=== PATIENT | female | born 1935 | race Caucasian/White ===

== ENCOUNTER → 2016-12-31 | Outpatient (CLI) | payer OTHER ==
[~2016-12-31] MED LIST: ASCO1CHW PO; ASPI81TA28 PO; CALC-338 PO; CHOL100027 PO; GLUCTAB7 PO; LEVO88TA PO; LISI-794 PO; METF-384 PO; MULTTAB58 PO; NITR0.4S UT; PRLSR20 PO
[2016-12-31 12:45] LABS: HEMATOCRIT 41.6 % (37-47); MEAN CELL VOLUME 88.1 fL (80-100); MEAN CORPUSCULAR HEMOGLOBIN 29.7 pg (25-34); MEAN CORPUSCULAR HGB CONC 33.7 g/dl (32-36); MEAN PLATELET VOLUME 9.5 fL (7.4-10.4); PLATELET COUNT 332 K/uL (130-400); RED BLOOD COUNT 4.72 M/uL (4.2-5.4); WHITE BLOOD COUNT 5.73 K/uL (4.8-10.8)
[2016-12-31 13:03] LABS: ALB/GLOB RATIO 1.1 (0.9-2); ALKALINE PHOSPHATASE 64 U/L (45-117); ALT/SGPT 25 U/L (12-78); AST/SGOT 18 U/L (15-37); BLOOD UREA NITROGEN 13 mg/dl (7-18); BUN/CREATININE RATIO 15.6 (10-20); CALCIUM 8.9 mg/dl (8.5-10.1); CARBON DIOXIDE 25 mmol/L (21-32); CHLORIDE 105 mmol/L (98-107); CHOLESTEROL 164 mg/dl (0-200); CHOLESTEROL/HDL RATIO 2.2; CREATININE 0.81 mg/dl (0.60-1.20); GLUCOSE 125 mg/dl (70-99); HDL CHOLESTEROL 75 mg/dl; LDL CHOLESTEROL CALCULATED 62 mg/dl; POTASSIUM 4.7 mmol/L (3.5-5.1); SODIUM 138 mmol/L (136-145); TRIGLYCERIDES 136 mg/dl (0-150); VERY LOW DENSITY LIPOPROT CALC 27 mg/dl
[2016-12-31 13:37] LABS: ESTIMATED AVERAGE GLUCOSE 143 mg/dl; HA1C FLAG Normal (Normal)
== END | disposition home or self-care (01) ==
LOC: C.LABPBG 09:44
PROVIDERS: ATTEND Internal Medicine Geriatric Medicine
DX: E03.9 Hypothyroidism, unspecified (principal); I10 Essential (primary) hypertension; E78.5 Hyperlipidemia, unspecified; R19.7 Diarrhea, unspecified; E11.9 Type 2 diabetes mellitus without complications

== ENCOUNTER → 2017-02-19 | Outpatient (CLI) | payer OTHER ==
--- NOTE | 2017-02-19 12:01 | DIAGNOSTIC IMAGING REPORT ---
CHEST 2 VIEWS ROUTINE CLINICAL HISTORY: Fever. Cough. COMPARISON STUDY: Chest radiograph May 06, 2016. FINDINGS: There are median sternotomy wires and mediastinal surgical clips. There is no pneumothorax or pleural effusion. Mild right middle lobe airspace opacity is present. There may be a trace right pleural effusion. There is no evidence of pulmonary edema. Incidental note is made of a small hiatal hernia. IMPRESSION: Mild right middle lobe airspace opacity which likely reflects pneumonia given the clinical history. Post treatment radiographs to ensure resolution are recommended. Electronically signed by: Nolberto Bethea M.D. 02/19/2017 12:00 PM Dictated Date/Time: 02/19/2017 11:58 AM
== END | disposition home or self-care (01) ==
LOC: C.RADBC 11:42
PROVIDERS: ATTEND Internal Medicine
DX: R50.9 Fever, unspecified (principal); R05 Cough

== ENCOUNTER → 2017-03-15 | Outpatient (CLI) | payer OTHER ==
--- NOTE | 2017-03-15 11:59 | DIAGNOSTIC IMAGING REPORT ---
TWO VIEW CHEST CLINICAL HISTORY: Follow-up pneumonia. FINDINGS: PA and lateral chest radiographs are compared to study dated 02/19/2017. The patient is status post midline sternotomy. The heart is top normal for projection and there is atherosclerotic calcification of the thoracic aorta. The pulmonary vasculature is noncongested. A hiatal hernia is observed. Chronic interstitial thickening is unchanged. There are persistent but modestly improved subpleural opacities in the right lower lung as compared to 02/19/2017. The left lung appears clear. No pleural effusion or pneumothorax is seen. The skeletal structures are osteopenic. Mild degenerative change is noted throughout the thoracic spine. IMPRESSION: 1. There are persistent but modestly improved subpleural opacities identified in the right lower lung. Some of this may represent fluid along the major fissure. Repeat examination in 2-3 weeks time is recommended to document complete resolution. 2. The lungs are otherwise clear. 3. Hiatal hernia. Electronically signed by: Orestes So M.D. 03/15/2017 11:56 AM Dictated Date/Time: 03/15/2017 11:51 AM
== END | disposition home or self-care (01) ==
LOC: C.RADBC 11:31
PROVIDERS: ATTEND Internal Medicine Geriatric Medicine
DX: Z87.01 Personal history of pneumonia (recurrent) (principal); K44.9 Diaphragmatic hernia without obstruction or gangrene

== ENCOUNTER → 2017-04-26 | Outpatient (CLI) | payer OTHER ==
[2017-04-26 13:48] LABS: BLOOD UREA NITROGEN 10 mg/dl (7-18); BUN/CREATININE RATIO 14.6 (10-20); CARBON DIOXIDE 25 mmol/L (21-32); CHLORIDE 105 mmol/L (98-107); CREATININE 0.68 mg/dl (0.60-1.20); GLUCOSE 101 mg/dl (70-99); POTASSIUM 4.4 mmol/L (3.5-5.1); SODIUM 139 mmol/L (136-145)
[2017-04-26 13:51] LABS: CALCIUM 9.1 mg/dl (8.5-10.1)
[2017-04-26 14:03] LABS: URINE TOTAL PROTEIN < 5.0 mg/dl (0-11.9)
[2017-04-26 14:40] LABS: ESTIMATED AVERAGE GLUCOSE 137 mg/dl; HA1C FLAG Normal (Normal)
== END | disposition home or self-care (01) ==
LOC: C.LABPBG 10:35
PROVIDERS: ATTEND Internal Medicine Geriatric Medicine
DX: I10 Essential (primary) hypertension (principal); E03.9 Hypothyroidism, unspecified; E11.9 Type 2 diabetes mellitus without complications; E78.5 Hyperlipidemia, unspecified

== ENCOUNTER → 2017-05-31 | Outpatient (CLI) | payer OTHER ==
--- NOTE | 2017-05-31 13:35 | DIAGNOSTIC IMAGING REPORT ---
CHEST 2 VIEWS ROUTINE CLINICAL HISTORY: J45.909 Reactive airway disease history COMPARISON STUDY: 03/15/2017 FINDINGS: Lungs currently are clear. Densities previously described primarily at the right base have resolved. There is a very small fixed lateral hernia. Patient status post median sternotomy. IMPRESSION: No acute process. Lungs are now clear. Electronically signed by: Aly Bullard M.D. 05/31/2017 1:33 PM Dictated Date/Time: 05/31/2017 1:33 PM
== END | disposition home or self-care (01) ==
LOC: C.RADBC 12:55
PROVIDERS: ATTEND Internal Medicine Geriatric Medicine
DX: J45.909 Unspecified asthma, uncomplicated (principal)

== ENCOUNTER → 2017-06-17 | Outpatient (CLI) | payer OTHER | END | disposition home or self-care (01) | LOC: C.PAPS 11:14 | PROVIDERS: ATTEND Obstetrics & Gynecology | DX: Z12.4 Encounter for screening for malignant neoplasm of cervix (principal); Z11.51 Encounter for screening for human papillomavirus (HPV) ==

== ENCOUNTER → 2017-08-30 | Outpatient (CLI) | payer OTHER ==
[2017-08-30 12:26] LABS: URINE APPEARANCE CLEAR (CLEAR); URINE BILIRUBIN NEG (NEG); URINE COLOR YELLOW; URINE EPITHELIAL CELL AUTO 0-5 /lpf (0-5); URINE NITRITE NEG (NEG); URINE SPECIFIC GRAVITY 1.016 (1.000-1.030); UROBILINOGEN NEG (NEG); ZZUR CULT IF INDIC CLEAN CATCH NO
[2017-08-30 12:30] LABS: MANUAL MICROSCOPIC REQUIRED? NO; REVIEW REQ? NO
== END | disposition home or self-care (01) ==
LOC: C.LABPBG 09:51
PROVIDERS: ATTEND Internal Medicine Geriatric Medicine
DX: R32 Unspecified urinary incontinence (principal)

== ENCOUNTER → 2017-12-23 | Outpatient (CLI) | payer OTHER | END | disposition home or self-care (01) | LOC: C.LABSPEC 10:06 | PROVIDERS: ATTEND Family Medicine | DX: R05 Cough (principal) ==

== ENCOUNTER → 2018-01-30 | Outpatient (CLI) | payer OTHER ==
[2018-01-30 12:05] LABS: BASO % 0.3 %; BASO ABS # 0.02 K/uL (0-0.2); EOS % 1.2 %; EOS ABS # 0.09 K/uL (0-0.5); HEMATOCRIT 38.6 % (37-47); IG# 0.01 K/uL (0.00-0.02); LYMPH % 27.9 %; LYMPH ABS # 2.02 K/uL (1.2-3.4); MEAN CELL VOLUME 88.9 fL (80-100); MEAN CORPUSCULAR HGB CONC 33.7 g/dl (32-36); MONO % 5.9 %; MONO ABS # 0.43 K/uL (0.11-0.59); NEUT % 64.6 %; NEUT ABS # 4.67 K/uL (1.4-6.5); PLATELET COUNT 369 K/uL (130-400); RED CELL DISTRIBUTION WIDTH CV 14.6 % (11.5-14.5); RED CELL DISTRIBUTION WIDTH SD 47.6 fL (36.4-46.3); WHITE BLOOD COUNT 7.24 K/uL (4.8-10.8)
[2018-01-30 12:32] LABS: ALBUMIN 3.7 gm/dl (3.4-5.0); ALKALINE PHOSPHATASE 67 U/L (45-117); ALT/SGPT 19 U/L (12-78); AST/SGOT 17 U/L (15-37); BLOOD UREA NITROGEN 17 mg/dl (7-18); CALCIUM 9.4 mg/dl (8.5-10.1); CARBON DIOXIDE 27 mmol/L (21-32); CHOLESTEROL 191 mg/dl (0-200); CREATININE 0.79 mg/dl (0.60-1.20); GLUCOSE 112 mg/dl (70-99); POTASSIUM 4.4 mmol/L (3.5-5.1); SODIUM 135 mmol/L (136-145)
[2018-01-30 12:41] LABS: LDL CHOLESTEROL CALCULATED 99 mg/dl
[2018-01-30 12:42] LABS: HEMOGLOBIN A1C 6.3 % (4.5-5.6)
== END | disposition home or self-care (01) ==
LOC: C.LABPBG 10:31
PROVIDERS: ATTEND Internal Medicine Geriatric Medicine
DX: I10 Essential (primary) hypertension (principal); E03.9 Hypothyroidism, unspecified; E78.5 Hyperlipidemia, unspecified; E55.9 Vitamin D deficiency, unspecified; E11.9 Type 2 diabetes mellitus without complications; G47.33 Obstructive sleep apnea (adult) (pediatric)

== ENCOUNTER → 2018-03-27 | Outpatient (CLI) | payer OTHER ==
--- NOTE | 2018-03-27 14:34 | MAMMOGRAPHY REPORT ---
BILATERAL DIGITAL SCREENING MAMMOGRAM TOMOSYNTHESIS WITH CAD: 03/27/2018 CLINICAL HISTORY: Routine screening. Patient has no complaints. TECHNIQUE: Breast tomosynthesis in addition to standard 2D mammography was performed. Current study was also evaluated with a Computer Aided Detection (CAD) system. COMPARISON: Comparison is made to exams dated: 03/24/2017 mammogram, 03/22/2016 mammogram, 03/19/2015 natali mogram, 03/18/2014 mammogram, 03/12/2013 mammogram, and 03/09/2012 mammogram - [facility] ter. BREAST COMPOSITION: The tissue of both breasts is heterogeneously dense, which may obscure small mas ses. FINDINGS: The parenchymal pattern is unchanged. No developing mass, architectural distortion or clus ter of suspicious microcalcifications is seen in either breast. IMPRESSION: ACR BI-RADS CATEGORY 2: BENIGN There is no mammographic evidence of malignancy. A 1 year screening mammogram is recommended. The pa tient will receive written notification of the results. Approximately 10% of breast cancers are not detected with mammography. A negative mammographic report should not delay biopsy if a clinically suggestive mass is present. Bruna Morrison M.D. ay/:03/27/2018 13:49:35 Pulverizer Tender: Blanca VALENZUELA(Nicci)(Hilario), [facility] letter sent: Normal 1/2 BI-RADS Code: ACR BI-RADS Category 2: Benign
== END | disposition home or self-care (01) ==
LOC: C.MAMM 10:01
PROVIDERS: ATTEND Obstetrics & Gynecology
DX: Z12.31 Encounter for screening mammogram for malignant neoplasm of breast (principal)

== ENCOUNTER → 2018-06-20 | Outpatient (CLI) | payer OTHER ==
[2018-06-21 07:03] LABS: HEMOGLOBIN A1C 6.3 % (4.5-5.6)
== END | disposition home or self-care (01) ==
LOC: C.LABPBG 14:57
PROVIDERS: ATTEND Physician Assistant
DX: E11.9 Type 2 diabetes mellitus without complications (principal); E03.9 Hypothyroidism, unspecified

== ENCOUNTER 2019-06-17 06:38 | Inpatient (IN) ==
[2019-06-17] MEDS ORDERED: METOCLOPRAMIDE HCL INJ 5 MG/ML 2 ML VIAL ONE (06:41)
[2019-06-17] MEDS ORDERED: HYDROmorphone INJ 0.5 MG/0.5 ML SYR IV PRN (06:48)
[2019-06-17] MEDS ORDERED: METOCLOPRAMIDE HCL INJ 5 MG/ML 2 ML VIAL IV STA (06:48)
[2019-06-17] MEDS ORDERED: SODIUM CHLORIDE 0.9% 500 ML IV SCH (07:00)
[2019-06-17 07:05] LABS: Basophils # (auto) 0.02 K/uL (0-0.2); Basophils % (auto) 0.2 %; Eosinophils # (auto) 0.13 K/uL (0-0.5); Eosinophils % (auto) 1.2 %; Hematocrit (blood only) 41.7 % (37-47); Hemoglobin 14.3 g/dL (12.0-16.0); Immature Granulocytes # (auto) 0.02 K/uL (0.00-0.02); Immature Granulocytes % (auto) 0.2 %; Lymphocytes # (auto) 1.93 K/uL (1.2-3.4); Lymphocytes % (auto) 18.2 %; Mean Corpuscular Hgb Conc 34.3 g/dL (32-36); Mean Corpuscular Volume 89.1 fL (80-100); Mean Platelet Volume 9.1 fL (7.4-10.4); Monocytes # (auto) 0.63 K/uL (0.11-0.59); Monocytes % (auto) 5.9 %; Neutrophils # (auto) 7.86 K/uL (1.4-6.5); Neutrophils % (auto) 74.3 %; Platelet Count 347 K/uL (130-400); RDW Coefficient of Variation 14.3 % (11.5-14.5); RDW Standard Deviation 46.2 fL (36.4-46.3); Red Blood Count 4.68 M/uL (4.2-5.4); White Blood Count 10.59 K/uL (4.8-10.8)
[2019-06-17 07:18] LABS: iSTAT Creatinine 0.7 mg/dl (0.6-1.3); iSTAT Hemoglobin 14.3 g/dl (12.0-16.0); iSTAT Ionized Calcium 1.2 mmol/l (1.12-1.32); iSTAT Potassium 4.3 mEq/L (3.3-5.0)
[2019-06-17 07:27] LABS: Alanine Aminotransferase 24 U/L (12-78); Albumin Level 3.8 gm/dl (3.4-5.0); Aspartate Aminotransferase 19 U/L (15-37); BUN Creatinine Ratio 16.4 (10-20); Blood Urea Nitrogen 14 mg/dl (7-18); Calcium 9.3 mg/dl (8.5-10.1); Carbon Dioxide 25 mmol/L (21-32); Chloride 103 mmol/L (98-107); Creatinine Clr Calc Pharmacy 45.5 ml/min; Est GFR (African American) 72.9; Est GFR (Non-African American) 62.9; Glucose 157 mg/dl (70-99); Potassium 4.1 mmol/L (3.5-5.1); Sodium 136 mmol/L (136-145)
--- NOTE | 2019-06-17 07:30 | XRay Report ---
XR chest 1V portable HISTORY: Atypical Chest Pain COMPARISON: Chest 10/22/2013. FINDINGS: There are poststernotomy changes. Retrocardiac density consistent with a small hiatus herni a. The heart is normal in size. The lungs are clear. No pleural effusions. No pneumothorax. IMPRESSION: No acute process. Electronically signed by: Pankaj Benoit M.D. 06/17/2019 7:29 AM
[2019-06-17 07:32] LABS: Albumin Globulin Ratio 1.1 (0.9-2); Alkaline Phosphatase 81 U/L (45-117); Bilirubin,Total 0.5 mg/dl (0.2-1); Creatine Kinase 166 U/L (26-192); Creatine Kinase MB 5.3 ng/ml (0.5-3.6); Globulin 3.5 gm/dl (2.5-4.0); Total Protein 7.3 gm/dl (6.4-8.2); Troponin I < 0.015 ng/ml (0-0.045)
[2019-06-17] MEDS ORDERED: IOVERSOL 100ml IV PRN (07:45)
--- NOTE | 2019-06-17 08:05 | CT Scan Report ---
ABDOMEN AND PELVIS CT WITH IV CONTRAST CT DOSE: 338.16 mGy.cm HISTORY: Pt c/o RUQ abd pain TECHNIQUE: Multiaxial CT images of the abdomen and pelvis were performed following the use of intrave nous contrast. A dose lowering technique was utilized adhering to the principles of ALARA. COMPARISON STUDY: Abdomen and pelvis CT 06/05/2019. FINDINGS: The lung bases are essentially clear. No pneumoperitoneum. No pneumatosis. No suspicious ly tic are blastic osseous lesions. There are poststernotomy changes. Moderate hiatus hernia, unchanged. Prior cholecystectomy. Normal caliber common bile duct status post cholecystectomy. Minimal intrahep atic bile duct dilatation. The spleen, adrenal glands, and pancreas are unremarkable. There is a stab le 2 cm cyst within the right kidney. Small focal area of scarring within the lower pole the left kid jignesh. No hydronephrosis. No retroperitoneal lymphadenopathy. Dextroscoliosis of the thoracolumbar spin e. No retroperitoneal lymphadenopathy. Mild bladder wall thickening, unchanged. This may be due to un derdistention. Trace pelvic free fluid. Colonic diverticulosis. No evidence for diverticulitis. There are postoperative changes again identified within the right colon. This suggests a right hemicolecto my with ileocolic anastomosis. The distal ileal loops are decompressed. Within the right lower quadra nt near the anastomosis, there is a 15 cm loop of bowel best seen on image 275 which demonstrates bot h proximal and distal transition points (images 265 and 272, respectively). This loop of bowel is mil dly dilated and fluid-filled. In addition, the mid to distal loops of small bowel within the midabdom en are also mildly distended and fluid-filled. Therefore, this is consistent with a small bowel obstr uction. Specifically, the short segment of distended bowel within the right lower quadrant demonstrat ing both proximal and distal transition points is consistent with a closed loop obstruction. IMPRESSION: 1. Above findings are consistent with a small bowel closed loop obstruction within the right lower qu adrant as described above. This is adjacent to the previous ileocolonic anastomosis and could represe nt an internal hernia or adhesions. Urgent surgical consultation recommended. 2. Additional stable findings as described above. 3. Findings were discussed with Dr. Reina at 8:01 AM on 06/17/2019. Electronically signed by: Pankaj Benoit M.D. 06/17/2019 8:03 AM
[2019-06-17 08:24] LABS: Appearance Urine Clear (Clear); Bilirubin Urine Negative (Negative); Blood Urine Negative (Negative); Color Urine Yellow; Glucose Urine UA Negative (Negative); Ketones Urine Negative (Negative); Leukocyte Esterase Urine Negative (Negative); Nitrite Urine Negative (Negative); Protein Urine Negative (Negative); Urobilinogen Urine Negative (Negative); pH Urine 6.5 (4.5-7.5)
--- NOTE | 2019-06-17 09:48 | Anesthesiology Consultation ---
Date of Service June 17, 2019 Assessment & Plan (1) Encounter for pre-operative examination: Chart Review Chart Review: Acceptable Risk for Surgery Consults Requested none ASA [id number] Proposed Anesthesia Anesthesia Type: General Anesthesia Line Insertion: Arterial line Risk / Benefits Reviewed With: PT / POA / Parent / Guardian, Accepts Plan and Informed Consent Obtained History Surgery Operation Date: 06/17/19 10:30 Proposed Procedures p Exploratory Laparotomy - Luba Salvador MD s Bowel Resection - Luba Salvador MD Height/Weight Height: 5 ft 1 in Weight: 71.1 kg Allergies Allergy/AdvReac Type Severity Reaction Status Date / Time ciprofloxacin [From Cipro] Allergy Mild nauseated Verified 06/17/19 06:53 furosemide [From Lasix] Allergy Unknown Unknown Verified 06/17/19 06:53 hydrochlorothiazide Allergy Unknown Unknown Verified 06/17/19 06:53 nitrofurantoin Allergy Unknown Unknown Verified 06/17/19 06:53 [From Macrobid] codeine AdvReac Severe CHEST PAIN Verified 06/17/19 06:53 felodipine [From Plendil] AdvReac Mild NON Verified 06/17/19 06:53 TOLERANT oxycodone [From Percocet] AdvReac Mild NON Verified 06/17/19 06:53 TOLERANT pravastatin [From Pravachol] AdvReac Mild MYALGIAS Verified 06/17/19 06:53 simvastatin [From Zocor] AdvReac Mild MYALGIAS Verified 06/17/19 06:53 Fsncwis-Xsy-Zli Reductase AdvReac Mild Muscle Verified 06/17/19 06:53 Inhibitor aches and cramping. theophylline [From Silas-Dur] AdvReac Mild NON Verified 06/17/19 06:53 TOLERANT Medications Home Medications Medication Instructions Recorded Confirmed Last Taken blood sugar diagnostic strips #10 ea 04/27/19 06/17/19 Unknown lancets 26 gauge #50 ea 04/27/19 06/17/19 Unknown lpxehpbkkwnw-Kg-ufgx-minerals 1 tab PO QAM 04/27/19 06/17/19 Unknown aspirin 81 mg tablet,delayed 81 mg PO QAM 05/30/19 06/17/19 Unknown release biotin 10 mg tablet 10 mg PO QAM tab 05/30/19 06/17/19 Unknown cholecalciferol (vitamin D3) 5,000 5,000 units PO QAM 05/30/19 06/17/19 Unknown unit capsule lisinopril 20 mg tablet 20 mg PO QAM tab 05/30/19 06/17/19 Unknown metformin 500 mg tablet 500 mg PO QAM tab 05/30/19 06/17/19 Unknown nitroglycerin 0.4 mg sublingual 0.4 mg SL UD PRN 05/30/19 06/17/19 Unknown tablet glucosamine sulfate 500 mg capsule 500 mg PO BID cap 05/31/19 06/17/19 Unknown coQ10 (ubiquinol) 200 mg PO QAM 06/07/19 06/17/19 Unknown levothyroxine [Synthroid] 75 mcg PO QAM 06/07/19 06/17/19 Unknown omeprazole 40 mg PO QAM 06/07/19 06/17/19 Unknown Active Medications Generic Name Dose Route Start Last Admin Trade Name Freq PRN Reason Stop Dose Admin Hydromorphone HCl 0.5 mg 06/17/19 06:48 06/17/19 08:49 Dilaudid IV 07/01/19 06:47 0.5 mg Q15M PRN Administration Pain Ioversol 93 ml 06/17/19 07:45 06/17/19 07:45 Optiray 320 100ml IV 06/21/19 07:44 93 ml ONCE PRN Administration Interaction Checking NPO Date Last Intake of Fluids: 06/16/19 Time Last Intake of Fluids: 21:00 Date Last Intake of Solids: 06/16/19 Time Last Intake of Solids: 21:00 Past Medical History Medical History SBO (small bowel obstruction) Spinal stenosis Arteriosclerotic coronary artery disease Carotid artery plaque Anxiety and depression Dyslipidemia GERD (gastroesophageal reflux disease) History of diverticulitis of colon Insomnia Moderate obstructive sleep apnea refused to wear CPAP Osteopenia Seasonal allergies Type 2 diabetes mellitus Urinary incontinence Vitamin D deficiency Lumbar facet joint syndrome Scoliosis Hypothyroidism HTN (hypertension) History of anesthesia reaction after last colonoscopy 2015 @ [facility] pt became dizzy with chest tightness and HTN in recovery area--Dr. Pankaj Montano sent pt to the ER for further evaluation (see anesthesia note from procedure), pt states no further issues and was discharged home. Intestinal mass hx of benign small mass on right side of colon---reason for partial colectomy Exercise / Class Metabolic Activity II 4-5 Yardwork/Stairs/Walk up hill Past Family History Family History Sister Family history of diabetes mellitus Mother Family history of diabetes mellitus Stroke Father Family history of diabetes mellitus Parkinsons disease Brother Family history of diabetes mellitus Grandfather (Paternal) Family history of stomach cancer Other No family history of adverse response to anesthesia Past Surgical History Surgical History History of partial colectomy SEP 2013 Hx of cholecystectomy (Chronic) H/O hemorrhoidectomy History of appendectomy History of cataract surgery BILATERAL History of colonoscopy History of coronary artery bypass graft 2000[place]LE [place] [place] of esophagogastroduodenoscopy History of tooth extraction partial upper and lower dentures History of tubal ligation Hx of varicose vein ligation and stripping Past Anesthesia History No Hx of Anesthesia Complications and No Family Hx of Anesthesia Complications History of PONV No Hx of PONV and No Hx of Motion Sickness Social History Smoking Status: Never smoker Hx Alcohol Use: Yes Alcohol type: wine alcohol intake frequency: holidays/special occasions only Hx Substance Use: No substance use type: does not use Physical Exam Vital Signs Last Vital Signs Temp 97.5 F L 06/17/19 06:45 Pulse 68 06/17/19 10:09 Resp 20 06/17/19 10:09 BP 207/94 H 06/17/19 10:09 Pulse Ox 97 06/17/19 10:09 ENMT Mouth: no dentition abnormality Thyromental Distance: > or= 3.5 Finger Breadths Mallampati Class: II Neck normal visual inspection Respiratory normal respiratory effort Auscultation: lungs clear to auscultation bilaterally Cardiovascular Rate/Rhythm: regular rate and regular rhythm Vessels: no carotid bruit Testing Laboratory Results 06/17/19 06:01 06/17/19 06:01 Urine Color Yellow 06/17/19 08:09 Urine Appearance Clear (Clear) 06/17/19 08:09 Urine pH 6.5 (4.5-7.5) 06/17/19 08:09 Ur Specific [place] 1.030 (1.000-1.030) 06/17/19 08:09 Urine Protein Negative (Negative) 06/17/19 08:09 Urine Glucose (UA) Negative (Negative) 06/17/19 08:09 Urine Ketones Negative (Negative) 06/17/19 08:09 Urine Nitrite Negative (Negative) 06/17/19 08:09 Ur Leukocyte Esterase Negative (Negative) 06/17/19 08:09 06/17/19 07:06 POC Glucose (other) 167 H Electrocardiogram Date: 06/17/19 Sinus bradycardia, rate 56 bpm Otherwise normal ECG When compared with ECG of 06-MAY-2016 11:53, Vent. rate has decreased BY 29 BPM Chest X-Ray Date: 06/17/19 Findings: + NAD
[2019-06-17] MEDS ORDERED: ENALAPRILAT 0.625 MG in SYRINGE 9.5 ML IV ONE (09:55)
[2019-06-17] MEDS ORDERED: ENALAPRILAT 0.625 MG in DEXTROSE 5% 25 ML IV SCH (10:00)
[2019-06-17] MEDS ORDERED: fentaNYL citrate 100 MCG/2 ML VIAL IV PRN (10:00)
[2019-06-17] MEDS ORDERED: BACITRACIN OINT 15 GM TUBE ONE (10:00)
[2019-06-17] MEDS ORDERED: ePHEDrine sulfate 50 MG/ML AMP IV PRN (10:00)
[2019-06-17] MEDS ORDERED: ATROPINE SULFATE 0.1 MG/ML 10ML SYR IV PRN (10:00)
[2019-06-17] MEDS ORDERED: ONDANSETRON INJ 2 MG/ML 2 ML VIAL IV PRN (10:00)
[2019-06-17] MEDS ORDERED: BUPIVACAINE 0.5 % 5 MG/1 ML MPF 30ML VIAL ONE (10:00)
[2019-06-17] MEDS ORDERED: LIDOCAINE HCL 1% 20 ML VIAL ONE (10:00)
--- NOTE | 2019-06-17 10:10 | Surgery Consultation ---
Date of Consultation June 17, 2019 Assessment & Plan (1) SBO (small bowel obstruction): pt is a 84 year-old who presents to ER with 9 hours acute abdominal pain, CT Scan dx possible loop SBO, or internal hernia, IMP: SBO possible loop or internal hernia, Plan, I recommend to do emergent exploratory laparotomy, possible bowel resection or stoma, D/W benefits, risks and alternatives of the surgery with pt and her son and daughter, the risks - infection, bleeding, injury Bowel, LA, DV T, stroke, anastomotic leak, , they understood, they agree with the surgery, I answered all questions, I also gave pt other option, if pt wants to transfer to higher level care, pt wants to do surgery at this hospital. Hospitalist consult for pre-op, and post - management, D/W ER attending. 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 pt had CT scan today at ER dx loop or internal hernia with SBO. Allergies Allergy/AdvReac Type Severity Reaction Status Date / Time ciprofloxacin [From Cipro] Allergy Mild nauseated Verified 06/17/19 06:53 furosemide [From Lasix] Allergy Unknown Unknown Verified 06/17/19 06:53 hydrochlorothiazide Allergy Unknown Unknown Verified 06/17/19 06:53 nitrofurantoin Allergy Unknown Unknown Verified 06/17/19 06:53 [From Macrobid] codeine AdvReac Severe CHEST PAIN Verified 06/17/19 06:53 felodipine [From Plendil] AdvReac Mild NON Verified 06/17/19 06:53 TOLERANT oxycodone [From Percocet] AdvReac Mild NON Verified 06/17/19 06:53 TOLERANT pravastatin [From Pravachol] AdvReac Mild MYALGIAS Verified 06/17/19 06:53 simvastatin [From Zocor] AdvReac Mild MYALGIAS Verified 06/17/19 06:53 Cabxbza-Ltl-Xwi Reductase AdvReac Mild Muscle Verified 06/17/19 06:53 Inhibitor aches and cramping. theophylline [From Silas-Dur] AdvReac Mild NON Verified 06/17/19 06:53 TOLERANT Home Medications Home Medications Medication Instructions Recorded Confirmed Type blood sugar diagnostic strips #10 ea 04/27/19 06/17/19 History lancets 26 gauge #50 ea 04/27/19 06/17/19 History ulxiliypbmzg-Bx-babb-minerals 1 tab PO QAM 04/27/19 06/17/19 History aspirin 81 mg tablet,delayed 81 mg PO QAM 05/30/19 06/17/19 History release biotin 10 mg tablet 10 mg PO QAM tab 05/30/19 06/17/19 History cholecalciferol (vitamin D3) 5,000 5,000 units PO QAM 05/30/19 06/17/19 History unit capsule lisinopril 20 mg tablet 20 mg PO QAM tab 05/30/19 06/17/19 History metformin 500 mg tablet 500 mg PO QAM tab 05/30/19 06/17/19 History nitroglycerin 0.4 mg sublingual 0.4 mg SL UD PRN 05/30/19 06/17/19 History tablet glucosamine sulfate 500 mg capsule 500 mg PO BID cap 05/31/19 06/17/19 History coQ10 (ubiquinol) 200 mg PO QAM 06/07/19 06/17/19 History levothyroxine [Synthroid] 75 mcg PO QAM 06/07/19 06/17/19 History omeprazole 40 mg PO QAM 06/07/19 06/17/19 History Patient History Medical History Spinal stenosis Arteriosclerotic coronary artery disease Carotid artery plaque Anxiety and depression Dyslipidemia GERD (gastroesophageal reflux disease) History of diverticulitis of colon Insomnia Moderate obstructive sleep apnea refused to wear CPAP Osteopenia Seasonal allergies Type 2 diabetes mellitus Urinary incontinence Vitamin D deficiency Lumbar facet joint syndrome Scoliosis Hypothyroidism HTN (hypertension) History of anesthesia reaction after last colonoscopy 2015 @ [facility] pt became dizzy with chest tightness and HTN in recovery area--Dr. Pankaj Montano sent pt to the ER for further evaluation (see anesthesia note from procedure), pt states no further issues and was discharged home. Intestinal mass hx of benign small mass on right side of colon---reason for partial colectomy Surgical History History of partial colectomy SEP 2013 Hx of cholecystectomy (Chronic) H/O hemorrhoidectomy History of appendectomy History of cataract surgery BILATERAL History of colonoscopy [place] of coronary artery [place] [place] of esophagogastroduodenoscopy History of tooth extraction partial upper and lower dentures History of tubal ligation Hx of varicose vein ligation and stripping Family History Sister Family history of diabetes mellitus Mother Family history of diabetes mellitus Stroke Father Family history of diabetes mellitus Parkinsons disease Brother Family history of diabetes mellitus Grandfather (Paternal) Family history of stomach cancer Other No family history of adverse response to anesthesia Social History Preferred Language: Urdu Communication Ability: Effective Visual Impairment: Limited Hearing Ability: Normal Beliefs That Will Affect Care: None marital status: Current Living Situation: Spouse current occupational status: retired Feels Safe at Home: Yes Smoking Status: Never smoker Second Hand Exposure: Yes ( smoked) Hx Alcohol Use: Yes Alcohol type: wine Hx Substance Use: No Review of Systems Constitutional: as per Subjective / HPI Eyes: as per Subjective / HPI Ear, Nose, Mouth, Throat: as per Subjective / HPI Respiratory: as per Subjective / HPI Cardiovascular: + chest pain Additional Comments: CAD, HTN, dyslipidemia, CABG x 3 . carotic artery plaque Gastrointestinal: GERD, S/P cholecystectomy, right loectomy Genitourinary: as per Subjective / HPI Musculoskeletal: as per Subjective / HPI Integumentary: as per Subjective / HPI Neurologic: as per Subjective / HPI Psychiatric: as per Subjective / HPI Endocrine: DM, hypothyroidism Hematologic / Lymphatic: as per Subjective / HPI Physical Exam Constitutional: WD/WN, vitals as above well developed and well nourished ENMT: external ear and nose normal, oropharynx normal Neck: trachea midline, no thyromegaly Respiratory: normal respiratory effort, lungs clear to auscultation normal respiratory effort Cardiovascular: RRR, no murmur, no edema Rate/Rhythm: regular rate, regular rhythm and + bradycardic Heart Sounds: normal S1 and normal S2 Gastrointestinal (Abdomen): Inspection/Auscultation: + abdomen distended Percussion/Palpation: + abdomen tender tenderness at lower abdomen, no rebound pain, BS + Musculoskeletal: no cyanosis or clubbing, extremities motor strength 5/5 Neurologic: patellar DTR's 2+ bilat, sensation intact Psychiatric: Orientation: alert and oriented x 3 Lymphatic: no cervical or axillary lymphadenopathy Results & Data Vital Signs (Past 12 Hours) Vital Signs Temp Pulse Pulse Resp BP BP Pulse Ox 06/17/19 09:02 71 18 229/90 H 95 06/17/19 08:04 63 16 167/81 H 06/17/19 07:18 95 06/17/19 06:55 58 L 16 171/75 H 94 06/17/19 06:45 36.4 C L 80 16 206/107 H 98 Laboratory Results Abnormal lab results 06/17/19 06/17/19 06/17/19 Range/Units 06:01 06:01 07:06 Neut # (Auto) 7.86 H (1.4-6.5) K/uL [place] # (Auto) 0.63 H (0.11-0.59) K/uL POC Anion Gap 14.0 L (16-25) mmol/L Glucose 157 H (70-99) mg/dl POC Glucose (other) 167 H (70-99) mg/dl CK-MB (CK-2) 5.3 H (0.5-3.6) ng/ml CK/CKMB % Calc 3.2 H (0-3.0) Diagnostic Findings ABDOMEN AND PELVIS CT WITH IV CONTRAST CT DOSE: 338.16 mGy.cm HISTORY: Pt c/o RUQ abd pain TECHNIQUE: Multiaxial CT images of the abdomen and pelvis were performed following the use of intravenous contrast. A dose lowering technique was utilized adhering to the principles of ALARA. COMPARISON STUDY: Abdomen and pelvis CT 06/05/2019. FINDINGS: The lung bases are essentially clear. No pneumoperitoneum. No pneumatosis. No suspicious lytic are blastic osseous lesions. There are poststernotomy changes. Moderate hiatus hernia, unchanged. Prior cholecystectomy. Normal caliber common bile duct status post cholecystectomy. Minimal intrahepatic bile duct dilatation. The spleen, adrenal glands, and pancreas are unremarkable. There is a stable 2 cm cyst within the right kidney. Small focal area of scarring within the lower pole the left kidney. No hydronephrosis. No retroperitoneal lymphadenopathy. Dextroscoliosis of the thoracolumbar spine. No retroperitoneal lymphadenopathy. Mild bladder wall thickening, unchanged. This may be due to underdistention. Trace pelvic free fluid. Colonic diverticulosis. No evidence for diverticulitis. There are postoperative changes again identified within the right colon. This suggests a right hemicolectomy with ileocolic anastomosis. The distal ileal loops are decompressed. Within the right lower quadrant near the anastomosis, there is a 15 cm loop of bowel best seen on image 275 which demonstrates both proximal and distal transition points (images 265 and 272, respectively). This loop of bowel is mildly dilated and fluid-filled. In addition, the mid to distal loops of small bowel within the midabdomen are also mildly distended and fluid-filled. Therefore, this is consistent with a small bowel obstruction. Specifically, the short segment of distended bowel within the right lower quadrant demonstrating both proximal and distal transition points is consistent with a closed loop obstruction. IMPRESSION: 1. Above findings are consistent with a small bowel closed loop obstruction within the right lower quadrant as described above. This is adjacent to the previous ileocolonic anastomosis and could represent an internal hernia or adhesions. Urgent surgical consultation recommended. 2. Additional stable findings as described above. 3. Findings were discussed with Dr. Reina at 8:01 AM on 06/17/2019.
[2019-06-17] MEDS ORDERED: fentaNYL citrate 100 MCG/2 ML VIAL ONE (10:18)
[2019-06-17] MEDS ORDERED: CEFAZOLIN 2000MG 2,000 MG/15 ML SYR IV ONE ×2 (10:19→10:54)
--- NOTE | 2019-06-17 10:20 | History & Physical Bridge Note ---
Date of Service June 17, 2019 History & Physical Bridge Note I have examined the patient, reviewed the History & Physical and in the interval since the performance of the History & Physical I have noted the following changes of clinical significance: no changes noted
--- NOTE | 2019-06-17 10:48 | Emergency Department Note ---
Entered by Jacquelyn Enrique acting as a scribe for History of Present Illness General Chief complaint: Abdominal Pain Stated complaint: ABDOMINAL PAIN Time Seen by Provider: 06/17/19 06:40 Source: patient Mode of arrival: EMS History of Present Illness Onset (ago): hour(s) 5 Location: abdomen (right upper quadrant) Radiation: non-radiation Severity: severe Pain Consistency: + other (episode) Relieved By: + medication (Zofran, Fentanyl) Associated symptoms: + other (vomiting, nausea, sweating) The patient is a 84 year old female with a history of diverticulitis that is presenting to the Emergency Room with complaints of an episode of severe right upper quadrant abdominal pain that started 5 hours ago at 0130 this morning. The patient reports that she was having some associated nausea. She states that she started vomiting shortly afterwards. She reports that she almost passed out secondary to the pain. She states that she broke out in a sweat as well. She denies any radiation of the pain. She notes that she ate some greasy food last night. She states that she is not currently experiencing pain. She notes that she received Zofran and Fentanyl en route via EMS. She reports that she was diagnosed with diverticulitis 1 month ago. She states that she is scheduled for a colonoscopy in 2 days for evaluation of her symptoms. She notes that she finished her course of antibiotics 2 weeks ago. The patient reports that she is status post cholecystectomy and a triple bypass. Home Medications Home Medications Medication Instructions Recorded Confirmed Type blood sugar diagnostic strips #10 ea 04/27/19 06/17/19 History lancets 26 gauge #50 ea 04/27/19 06/17/19 History [id number]-Gb-zbcl-minerals 1 tab PO QAM 04/27/19 06/17/19 History aspirin 81 mg tablet,delayed 81 mg PO QAM 05/30/19 06/17/19 History release biotin 10 mg tablet 10 mg PO QAM tab 05/30/19 06/17/19 History cholecalciferol (vitamin D3) 5,000 5,000 units PO QAM 05/30/19 06/17/19 History unit capsule lisinopril 20 mg tablet 20 mg PO QAM tab 05/30/19 06/17/19 History metformin 500 mg tablet 500 mg PO QAM tab 05/30/19 06/17/19 History nitroglycerin 0.4 mg sublingual 0.4 mg SL UD PRN 05/30/19 06/17/19 History tablet glucosamine sulfate 500 mg capsule 500 mg PO BID cap 05/31/19 06/17/19 History coQ10 (ubiquinol) 200 mg PO QAM 06/07/19 06/17/19 History levothyroxine [Synthroid] 75 mcg PO QAM 06/07/19 06/17/19 History omeprazole 40 mg PO QAM 06/07/19 06/17/19 History Allergies Allergy/AdvReac Type Severity Reaction Status Date / Time ciprofloxacin [From Cipro] Allergy Mild nauseated Verified 06/17/19 06:53 furosemide [From Lasix] Allergy Unknown Unknown Verified 06/17/19 06:53 hydrochlorothiazide Allergy Unknown Unknown Verified 06/17/19 06:53 nitrofurantoin Allergy Unknown Unknown Verified 06/17/19 06:53 [From Macrobid] codeine AdvReac Severe CHEST PAIN Verified 06/17/19 06:53 felodipine [From Plendil] AdvReac Mild NON Verified 06/17/19 06:53 TOLERANT oxycodone [From Percocet] AdvReac Mild NON Verified 06/17/19 06:53 TOLERANT pravastatin [From Pravachol] AdvReac Mild MYALGIAS Verified 06/17/19 06:53 simvastatin [From Zocor] AdvReac Mild MYALGIAS Verified 06/17/19 06:53 Lvhhsya-Xwo-Tuq Reductase AdvReac Mild Muscle Verified 06/17/19 06:53 Inhibitor aches and cramping. theophylline [From Silas-Dur] AdvReac Mild NON Verified 06/17/19 06:53 TOLERANT Past Med/Surg History Medical History SBO (small bowel obstruction) Spinal stenosis Arteriosclerotic coronary artery disease Carotid artery plaque Anxiety and depression Dyslipidemia GERD (gastroesophageal reflux disease) History of diverticulitis of colon Insomnia Moderate obstructive sleep apnea refused to wear CPAP Osteopenia Seasonal allergies Type 2 diabetes mellitus Urinary incontinence Vitamin D deficiency Lumbar facet joint syndrome Scoliosis Hypothyroidism HTN (hypertension) History of anesthesia reaction after last colonoscopy [address] [facility] pt became dizzy with chest tightness and HTN in recovery area--Dr. Pankaj Montano sent pt to the ER for further evaluation (see anesthesia note from procedure), pt states no further issues and was discharged home. Intestinal mass hx of benign small mass on right side of colon---reason for partial colectomy Surgical History History of partial colectomy SEP 2013 Hx of cholecystectomy (Chronic) H/O hemorrhoidectomy History of appendectomy History of cataract surgery BILATERAL History of colonoscopy History of coronary artery bypass graft 2000-TRIPLE BYPASS @[facility] [place] History of esophagogastroduodenoscopy History of tooth extraction partial upper and lower dentures History of tubal ligation Hx of varicose vein ligation and stripping Family History Sister Family history of diabetes mellitus Mother Family history of diabetes mellitus Stroke Father Family history of diabetes mellitus Parkinsons disease Brother Family history of diabetes mellitus Grandfather (Paternal) Family history of stomach cancer Other No family history of adverse response to anesthesia Social History Preferred Language: Panamanian Communication Ability: Effective Visual Impairment: Limited Hearing Ability: Normal Beliefs That Will Affect Care: None marital status: Current Living Situation: Spouse current occupational status: retired Feels Safe at Home: Yes Smoking Status: Never smoker Second Hand Exposure: Yes ( smoked) Hx Alcohol Use: Yes Alcohol type: wine Hx Substance Use: No Review of Systems See HPI for pertinent positives & negatives. and A total of 10 systems reviewed and were otherwise negative Physical Exam Vital Signs Vital Signs - 24 hr 06/17/19 06:45 06/17/19 06:55 06/17/19 07:18 Temperature 36.4 C L Temperature Source Oral Sepsis Recent Fever Within 48 Hours No Sepsis New/Unexplained Change in Mental Status No Sepsis Action Taken by Nursing No Action Required Pulse Rate 80 Pulse Rate [Right Finger] 58 L Pulse Rhythm Regular Pulse Rhythm [Right Finger] Regular Pulse Strength Normal Pulse Strength [Right Finger] Normal Respiratory Rate 16 16 Respiratory Effort / Characteristics Non-Labored Non-Labored Respiratory Depth Normal Normal Respiratory Pattern Regular Regular Blood Pressure 206/107 H Blood Pressure [Right Arm] 171/75 H Blood Pressure Mean 140 Blood Pressure Mean [Right Arm] 107 Blood Pressure Position Sitting Blood Pressure Position [Right Arm] Lying Pulse Oximetry 98 94 95 Oxygen Delivery Method Room Air Room Air Room Air Fraction of Inspired Oxygen 06/17/19 07:19 06/17/19 08:04 06/17/19 09:02 Temperature Temperature Source Sepsis Recent Fever Within 48 Hours Sepsis New/Unexplained Change in Mental Status Sepsis Action Taken by Nursing Pulse Rate Pulse Rate [Right Finger] 63 71 Pulse Rhythm Pulse Rhythm [Right Finger] Regular Regular Pulse Strength Pulse Strength [Right Finger] Normal Normal Respiratory Rate 16 18 Respiratory Effort / Characteristics Non-Labored Respiratory Depth Normal Normal Respiratory Pattern Blood Pressure Blood Pressure [Right Arm] 167/81 H 229/90 H Blood Pressure Mean Blood Pressure Mean [Right Arm] 109 136 Blood Pressure Position Blood Pressure Position [Right Arm] Sitting Pulse Oximetry 95 Oxygen Delivery Method Room Air Room Air Room Air Fraction of Inspired Oxygen 95 06/17/19 10:09 Temperature Temperature Source Sepsis Recent Fever Within 48 Hours Sepsis New/Unexplained Change in Mental Status Sepsis Action Taken by Nursing Pulse Rate 68 Pulse Rate [Right Finger] Pulse Rhythm Pulse Rhythm [Right Finger] Pulse Strength Pulse Strength [Right Finger] Respiratory Rate 20 Respiratory Effort / Characteristics Respiratory Depth Respiratory Pattern Blood Pressure 207/94 H Blood Pressure [Right Arm] Blood Pressure Mean Blood Pressure Mean [Right Arm] Blood Pressure Position Blood Pressure Position [Right Arm] Pulse Oximetry 97 Oxygen Delivery Method Room Air Fraction of Inspired Oxygen GENERAL: Awake, alert, well-appearing. Actively vomiting. HENT: Normocephalic, atraumatic. Oropharynx unremarkable. EYES: Normal conjunctiva. Sclera non-icteric. NECK: Supple. No nuchal rigidity. FROM. No JVD. RESPIRATORY: Clear to auscultation. CARDIAC: Regular rate, normal rhythm. Extremities warm and well perfused. Pulses equal. ABDOMEN: Soft, non-distended. No rebound or guarding. No masses. Tenderness to the right upper quadrant. RECTAL: Deferred. MUSCULOSKELETAL: Chest examination reveals no tenderness. The back is symmetrical on inspection without obvious abnormality. There is no CVA tenderness to palpation. No joint edema. LOWER EXTREMITIES: Calves are equal size bilaterally and non-tender. No edema. No discoloration. NEURO: Normal sensorium. No sensory or motor deficits noted. SKIN: No rash or jaundice noted. Old healing scar to the chest wall. Course 0642:The patient was evaluated in room A10. A complete history and physical examination was performed. 0811: I updated the patient on her current lab and imaging results. She is amenable to the plan. 0816: I discussed the patient's case with Dr. Salvador, General Surgery, who will evaluate the patient further. 0929: After his evaluation, Dr. Salvador states that he will take the patient to the OR but requests that the hospitalist evaluate the patient prior to going to the OR. 0939: I discussed the patients case with NAHUM Mo, who will evaluate the patient for further management and care. 0947: Upon reevaluation, the patient is resting comfortably. I discussed laboratory and radiographic results with the patient. She verbalized agreement of the treatment plan. The patient will be evaluated for further management and care. Consultations Consultation #1: I discussed the patient's case with Dr. Salvador, General Surgery, who will evaluate the patient further. Time: 08:16 Consultation #2: After his evaluation, Dr. Salvador states that he will take the patient to the OR but requests that the hospitalist evaluate the patient prior to going to the OR. Time: 09:29 Consultation #3: I discussed the patients case with NAHUM Mo, who will evaluate the patient for further management and care. Time: 09:39 Administered Medications Hydromorphone HCl (Dilaudid) 0.5 mg IV Q15M PRN PRN Reason: Pain Stop: 07/01/19 06:47 Last Admin: 06/17/19 08:49 Dose: 0.5 mg Documented by: [id number] Ioversol (Optiray 320 100ml) 93 ml IV ONCE PRN PRN Reason: Interaction Checking Stop: 06/21/19 07:44 Last Admin: 06/17/19 07:45 Dose: 93 ml Documented by: [id number] Discontinued Medications Sodium Chloride (Nss) 500 mls @ 999 mls/hr IV .Q31M DORIAN Stop: 06/17/19 07:30 Last Admin: 06/17/19 07:24 Dose: 999 mls/hr Documented by: [id number] Metoclopramide HCl (Reglan) Confirm Administered Dose 10 mg .ROUTE .STK-MED ONE Stop: 06/17/19 06:42 Last Admin: 06/17/19 06:45 Dose: 10 mg Documented by: [id number] Metoclopramide HCl (Reglan) 10 mg IV NOW STA Stop: 06/17/19 06:49 Last Admin: 06/17/19 07:02 Dose: Not Given Documented by: [id number] Medical Decision Making Differential Diagnosis Differential diagnosis: Etiologies such as appendicitis, diverticulitis, PUD, biliary pathology, UTI, pancreatitis, obstruction, mesenteric ischemia, aortic pathology, infections, inflammatory bowel disease, renal colic, as well as others were entertained. Medical Records Attestation: I reviewed the patient's medical records. Home Medications Current Medication List: was personally reviewed by me Laboratory Data Attestation: I reviewed the patient's lab results. Result diagrams: 06/17/19 06:01 06/17/19 06:01 Lab Results 06/17/19 06/17/19 06/17/19 Range/Units 06:01 06:01 07:06 WBC 10.59 (4.8-10.8) K/uL RBC 4.68 (4.2-5.4) M/uL Hgb 14.3 (12.0-16.0) g/dL POC Hgb 14.3 (12.0-16.0) g/dl Hct 41.7 (37-47) % POC Hct 42 (37-47) % MCV 89.1 (80-100) fL MCH 30.6 (25-34) pg MCHC 34.3 (32-36) g/dL RDW Std Deviation 46.2 (36.4-46.3) fL RDW Coeff of Becky 14.3 (11.5-14.5) % Plt Count 347 (130-400) K/uL MPV 9.1 (7.4-10.4) fL Immature Gran % (Auto) 0.2 % Neut % (Auto) 74.3 % Lymph % (Auto) 18.2 % Collin % (Auto) 5.9 % Eos % (Auto) 1.2 % Baso % (Auto) 0.2 % Immature Gran # (Auto) 0.02 (0.00-0.02) K/uL Neut # (Auto) 7.86 H (1.4-6.5) K/uL Lymph # (Auto) 1.93 (1.2-3.4) K/uL Collin # (Auto) 0.63 H (0.11-0.59) K/uL Eos # (Auto) 0.13 (0-0.5) K/uL Baso # (Auto) 0.02 (0-0.2) K/uL POC Sodium 136 (135-144) mEq/L Sodium 136 (136-145) mmol/L POC Potassium 4.3 (3.3-5.0) mEq/L Potassium 4.1 (3.5-5.1) mmol/L POC Chloride 103 (101-112) mEq/L Chloride 103 (98-107) mmol/L Carbon Dioxide 25 (21-32) mmol/L POC Total CO2 25 (24-31) mEq/l Anion Gap 8.0 (3-11) POC Anion Gap 14.0 L (16-25) mmol/L POC BUN 17 (7-18) mg/dl BUN 14 (7-18) mg/dl Creatinine 0.86 (0.6-1.2) mg/dl POC Creatinine 0.7 (0.6-1.3) mg/dl Est Cr Clr Drug Dosing 45.5 ml/min Est GFR ( Amer) 72.9 Est GFR (Non-Af Amer) 62.9 BUN/Creatinine Ratio 16.4 (10-20) Glucose 157 H (70-99) mg/dl POC Glucose (other) 167 H (70-99) mg/dl Calcium 9.3 (8.5-10.1) mg/dl POC Ioniz Calcium Bernie 1.20 (1.12-1.32) mmol/l Total Bilirubin 0.5 (0.2-1) mg/dl AST 19 (15-37) U/L ALT 24 (12-78) U/L Alkaline Phosphatase 81 (45-117) U/L Total Creatine Kinase 166 (26-192) U/L CK-MB (CK-2) 5.3 H (0.5-3.6) ng/ml CK/CKMB % Calc 3.2 H (0-3.0) Troponin I < 0.015 (0-0.045) ng/ml Total Protein 7.3 (6.4-8.2) gm/dl Albumin 3.8 (3.4-5.0) gm/dl Globulin 3.5 (2.5-4.0) gm/dl Albumin/Globulin Ratio 1.1 (0.9-2) Lipase 211 (73-393) U/L Urine Color Urine Appearance (Clear) Urine pH (4.5-7.5) Ur Specific [place] (1.000-1.030) Urine Protein (Negative) Urine Glucose (UA) (Negative) Urine Ketones (Negative) Urine Blood (Negative) Urine Nitrite (Negative) Urine Bilirubin (Negative) Urine Urobilinogen (Negative) Ur Leukocyte Esterase (Negative) 06/17/19 Range/Units 08:09 WBC (4.8-10.8) K/uL RBC (4.2-5.4) M/uL Hgb (12.0-16.0) g/dL POC Hgb (12.0-16.0) g/dl Hct (37-47) % POC Hct (37-47) % MCV (80-100) fL MCH (25-34) pg MCHC (32-36) g/dL RDW Std Deviation (36.4-46.3) fL RDW Coeff of Becky (11.5-14.5) % Plt Count (130-400) K/uL MPV (7.4-10.4) fL Immature Gran % (Auto) % Neut % (Auto) % Lymph % (Auto) % Collin % (Auto) % Eos % (Auto) % Baso % (Auto) % Immature Gran # (Auto) (0.00-0.02) K/uL Neut # (Auto) (1.4-6.5) K/uL Lymph # (Auto) (1.2-3.4) K/uL Collin # (Auto) (0.11-0.59) K/uL Eos # (Auto) (0-0.5) K/uL Baso # (Auto) (0-0.2) K/uL POC Sodium (135-144) mEq/L Sodium (136-145) mmol/L POC Potassium (3.3-5.0) mEq/L Potassium (3.5-5.1) mmol/L POC Chloride (101-112) mEq/L Chloride (98-107) mmol/L Carbon Dioxide (21-32) mmol/L POC Total CO2 (24-31) mEq/l Anion Gap (3-11) POC Anion Gap (16-25) mmol/L POC BUN (7-18) mg/dl BUN (7-18) mg/dl Creatinine (0.6-1.2) mg/dl POC Creatinine (0.6-1.3) mg/dl Est Cr Clr Drug Dosing ml/min Est GFR ( Amer) Est GFR (Non-Af Amer) BUN/Creatinine Ratio (10-20) Glucose (70-99) mg/dl POC Glucose (other) (70-99) mg/dl Calcium (8.5-10.1) mg/dl POC Ioniz Calcium Bernie (1.12-1.32) mmol/l Total Bilirubin (0.2-1) mg/dl AST (15-37) U/L ALT (12-78) U/L Alkaline Phosphatase (45-117) U/L Total Creatine Kinase (26-192) U/L CK-MB (CK-2) (0.5-3.6) ng/ml CK/CKMB % Calc (0-3.0) Troponin I (0-0.045) ng/ml Total Protein (6.4-8.2) gm/dl Albumin (3.4-5.0) gm/dl Globulin (2.5-4.0) gm/dl Albumin/Globulin Ratio (0.9-2) Lipase (73-393) U/L Urine Color Yellow Urine Appearance Clear (Clear) Urine pH 6.5 (4.5-7.5) Ur Specific [place] 1.030 (1.000-1.030) Urine Protein Negative (Negative) Urine Glucose (UA) Negative (Negative) Urine Ketones Negative (Negative) Urine Blood Negative (Negative) Urine Nitrite Negative (Negative) Urine Bilirubin Negative (Negative) Urine Urobilinogen Negative (Negative) Ur Leukocyte Esterase Negative (Negative) Imaging Data Radiologist's Impression: Radiology results as stated below per my review and the radiologist's interpretation: XR chest 1V portable HISTORY: Atypical Chest Pain COMPARISON: Chest 10/22/2013. FINDINGS: There are poststernotomy changes. Retrocardiac density consistent with a small hiatus hernia. The heart is normal in size. The lungs are clear. No pleural effusions. No pneumothorax. IMPRESSION: No acute process. Electronically signed by: Pankaj Benoit M.D. 06/17/2019 7:29 AM ABDOMEN AND PELVIS CT WITH IV CONTRAST CT DOSE: 338.16 mGy.cm HISTORY: Pt c/o RUQ abd pain TECHNIQUE: Multiaxial CT images of the abdomen and pelvis were performed following the use of intravenous contrast. A dose lowering technique was utilized adhering to the principles of ALARA. COMPARISON STUDY: Abdomen and pelvis CT 06/05/2019. FINDINGS: The lung bases are essentially clear. No pneumoperitoneum. No pneumatosis. No suspicious lytic are blastic osseous lesions. There are poststernotomy changes. Moderate hiatus hernia, unchanged. Prior cholecystectomy. Normal caliber common bile duct status post cholecystectomy. Minimal intrahepatic bile duct dilatation. The spleen, adrenal glands, and pancreas are unremarkable. There is a stable 2 cm cyst within the right kidney. Small focal area of scarring within the lower pole the left kidney. No hydronephrosis. No retroperitoneal lymphadenopathy. Dextroscoliosis of the thoracolumbar spine. No retroperitoneal lymphadenopathy. Mild bladder wall thickening, unchanged. This may be due to underdistention. Trace pelvic free fluid. Colonic diverticulosis. No evidence for diverticulitis. There are postoperative changes again identified within the right colon. This suggests a right hemicolectomy with ileocolic anastomosis. The distal ileal loops are decompressed. Within the right lower quadrant near the anastomosis, there is a 15 cm loop of bowel best seen on image 275 which demonstrates both proximal and distal transition points (images 265 and 272, respectively). This loop of bowel is mildly dilated and fluid-filled. In addition, the mid to distal loops of small bowel within the midabdomen are also mildly distended and fluid-filled. Therefore, this is consistent with a small bowel obstruction. Specifically, the short segment of distended bowel within the right lower quadrant demonstrating both proximal and distal transition points is consistent with a closed loop obstruction. IMPRESSION: 1. Above findings are consistent with a small bowel closed loop obstruction within the right lower quadrant as described above. This is adjacent to the previous ileocolonic anastomosis and could represent an internal hernia or adhesions. Urgent surgical consultation recommended. 2. Additional stable findings as described above. 3. Findings were discussed with Dr. Reina at 8:01 AM on 06/17/2019. Electronically signed by: Pankaj Benoit M.D. 06/17/2019 8:03 AM ECG Data Attestation: I personally reviewed and interpreted this ECG as follows: Indication: abdominal pain Rate (beats per minute): 56 Rhythm: sinus bradycardia Findings: no ST depression, no ST elevation and no acute ischemic change Blood Pressure Blood Pressure Findings: Elevated blood pressure Blood Pressure Disposition: elevated BP felt to be situational MDM Narrative This is an 84-year-old female who presents emergency department complaining of right upper quadrant abdominal pain. Using shared medical decision-making with patient and family decision was made to send patient for CAT scan of the abdomen pelvis. This is concerning for closed-loop bowel obstruction. Patient did receive Dilaudid here in the emergency department as well as Reglan. I did discuss the case with the surgeon on-call who agreed to take the patient to the operating room. She was also discussed with the hospitalist service who cleared the patient for surgery. An NG tube was placed here in the emergency department. Repeat examination revealed improvement in the patient's symptoms. Impression & Plan Abdominal pain, HTN (hypertension), Type 2 diabetes mellitus, Reactive airway disease, Bowel obstruction Critical Care Time I have personally spent greater than 30 minutes of critical care time in the direct management of this patient. This includes bedside care, interpretation of diagnostic studies, and testing, discussion with consultants, patient, and family members, and other required patient management activities. This 30 minutes is in excess of all separately billable procedures. Discharge Plan Visit Data *Final* Discharge Date/Time: 06/17/19 10:09 Chief Complaint: Abdominal Pain Stated Complaint: ABDOMINAL PAIN ED Provider: Isidro Reina Discharge Problem: Abdominal pain, HTN (hypertension), Type 2 diabetes mellitus, Reactive airway disease, Bowel obstruction Patient Disposition: Still a Patient Discharge Instructions Interventions: ED Discharge Assessment Last Done: 06/17/19 10:09 Discharge Problem: Abdominal pain Qualifiers: Abdominal location: right upper quadrant Qualified Code(s): R10.11 - Right upper quadrant pain HTN (hypertension) Qualifiers: Hypertension type: unspecified Qualified Code(s): I10 - Essential (primary) hypertension Type 2 diabetes mellitus Qualifiers: Diabetes mellitus termite inspector insulin use: unspecified termite inspector insulin use status Diabetes mellitus complication status: without complication Qualified Code(s): E11.9 - Type 2 diabetes mellitus without complications Reactive airway disease Qualifiers: Asthma severity: unspecified severity Asthma persistence: unspecified Asthma complication type: uncomplicated Qualified Code(s): J45.909 - Unspecified asthma, uncomplicated Bowel obstruction Qualifiers: Intestinal obstruction type: unspecified Intestinal obstruction extent: unspecified extent Qualified Code(s): K56.609 - Unspecified intestinal obstruction, unspecified as to partial versus complete obstruction The scribe's documentation has been prepared under my direction and personally reviewed by me in its entirety. I confirm that the note above accurately reflects all work, treatment, procedures, and medical decision making performed by me.
[2019-06-17] MEDS ORDERED: CEFAZOLIN 250 MG/ML 1 GM VIAL ONE (11:21)
[2019-06-17] MEDS ORDERED: NEOSTIGMINE METHYLSULFATE 5 MG/5 ML SYR ONE (11:33)
[2019-06-17] MEDS ORDERED: ONDANSETRON INJ 2 MG/ML 2 ML VIAL ONE (11:33)
[2019-06-17] MEDS ORDERED: SUCCINYLCHOLINE CHLORIDE 20 MG/ML 10 ML VIAL ONE (11:33)
[2019-06-17] MEDS ORDERED: GLYCOPYRROLATE 0.2 MG/ML VIAL ONE ×2 (11:33→11:48)
[2019-06-17] MEDS ORDERED: LIDOCAINE HCL 2% 2 ML VIAL/AMP(20MG/ML) INFIL ONE (11:33)
[2019-06-17] MEDS ORDERED: ROCURONIUM BROMIDE 10 MG/ML 5 ML VIAL ONE (11:33)
[2019-06-17] MEDS ORDERED: PROPOFOL IV EMULSION 10 MG/ML 20 ML VIAL IV ONE (11:33)
[2019-06-17] MEDS ORDERED: ePHEDrine sulfate 50 MG/ML SYR ONE (11:48)
[2019-06-17] MEDS ORDERED: PHENYLEPHRINE 100MCG/ML 5ML SYR ONE (11:48)
--- NOTE | 2019-06-17 12:05 | Post Operative Brief Note ---
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
[2019-06-17] MEDS ORDERED: LABETALOL HCL IV 5 MG/ML 20ML IV ONE (12:25)
--- NOTE | 2019-06-17 12:44 | Anesthesiology Progress Note ---
Date of Service June 17, 2019 Anesthesia Post Procedure Vital Signs Vital Signs: Temp Pulse Pulse Pulse Resp BP BP 06/17/19 12:40 52 L 16 143/63 H 06/17/19 12:30 53 L 16 138/57 L 06/17/19 12:20 59 L 16 144/60 H 06/17/19 12:12 97.7 F 65 16 133/87 06/17/19 10:09 68 20 207/94 H 06/17/19 09:02 71 18 06/17/19 08:04 63 16 06/17/19 07:18 06/17/19 06:55 58 L 16 06/17/19 06:45 97.5 F L 80 16 206/107 H BP Pulse Ox 06/17/19 12:40 100 06/17/19 12:30 100 06/17/19 12:20 100 06/17/19 12:12 100 06/17/19 10:09 97 06/17/19 09:02 229/90 H 95 06/17/19 08:04 167/81 H 06/17/19 07:18 95 06/17/19 06:55 171/75 H 94 06/17/19 06:45 98 Pain Intensity Left Lower Abdomen: Pain Intensity: 4 Transfer of Care Handoff Completed per policy Notes Mental Status: alert / awake / arousable and participated in evaluation Patient Amnestic to Procedure: Yes Nausea / Vomiting: adequately controlled Pain: adequately controlled Airway Patency, RR, SpO2: stable & adequate BP & HR: stable & adequate Hydration State: stable & adequate Anesthetic Complications: no major complications apparent and Pt Satisfied with anesthetic care
[2019-06-17] MEDS ORDERED: DEXTROSE 50% 50 ML SYRINGE IV PRN (12:46)
[2019-06-17] MEDS ORDERED: GLUCOSE 10 TABS/TUBE PO PRN (12:46)
[2019-06-17] MEDS ORDERED: GLUCAGON FOR INJ 1 MG VIAL SQ PRN (12:46)
[2019-06-17] MEDS ORDERED: CARBOHYDRATES FOR HYPOGLYCEMIA PO PRN (12:46)
[2019-06-17] MEDS ORDERED: HydrALAZINE HCL 20 MG/ML VIAL IV PRN (12:46)
[2019-06-17] MEDS ORDERED: GLUCOSE 40% GEL 15 GM TUBE PO PRN (12:46)
--- NOTE | 2019-06-17 12:46 | Hospitalist Consultation ---
Date of Consultation June 17, 2019 Assessment & Plan (1) Type 2 diabetes mellitus: Patient typically takes metformin this will be on hold due to sliding scale insulin at this time until she regains her p.o. status (2) Hypothyroidism: Patient is on Synthroid be converted IV dose at roughly 50% of her p.o. dose (3) HTN (hypertension): Patient's blood pressures typically controlled with lisinopril will have hydralazine and clonidine for back-up and if need be and start enalapril AT for scheduled dosing if blood pressure control is required (4) GERD (gastroesophageal reflux disease): Typically takes omeprazole either this or Pepcid will be continued (5) SBO (small bowel obstruction): Surgical correction on 06/17 History of Present Illness Attending Physician: Luba Salvador MD History of Present Illness The patient is a 84 year old female with a history of diverticulitis that is presenting to the Emergency Room with complaints of an episode of severe right upper quadrant abdominal pain that started 5 hours ago at 0130 06/17/19. Patient associated nausea and vomiting. The pain is intense without radiation and cause presyncope. Patient was administered Zofran and Fentanyl en route via EMS. She reports that she was diagnosed with diverticulitis 1 month ago. She states that she is scheduled for a colonoscopy in 2 days for evaluation of her symptoms. She notes that she finished her course of antibiotics 2 weeks ago. The patient reports that she is status post cholecystectomy and a triple bypass. Patient was found to have small bowel obstruction seen on CT scan NG tube was placed with drainage of a clear Gatorade color liquid. Regarding her operative risk the patient although having cardiac history does not have any significant chest pressure and has not taken any nitro as noted increased dyspnea on exertion and cannot lay flat to sleep in bed at night. He does bring up a point where she says that after her previous colonoscopy she had some presyncope post procedure. I did personally call Dr. Horn anesthesia on- call and communicated her intolerance to her colonoscopy anesthetic. Allergies Allergy/AdvReac Type Severity Reaction Status Date / Time ciprofloxacin [From Cipro] Allergy Mild nauseated Verified 06/17/19 06:53 furosemide [From Lasix] Allergy Unknown Unknown Verified 06/17/19 06:53 hydrochlorothiazide Allergy Unknown Unknown Verified 06/17/19 06:53 nitrofurantoin Allergy Unknown Unknown Verified 06/17/19 06:53 [From Macrobid] codeine AdvReac Severe CHEST PAIN Verified 06/17/19 06:53 felodipine [From Plendil] AdvReac Mild NON Verified 06/17/19 06:53 TOLERANT oxycodone [From Percocet] AdvReac Mild NON Verified 06/17/19 06:53 TOLERANT pravastatin [From Pravachol] AdvReac Mild MYALGIAS Verified 06/17/19 06:53 simvastatin [From Zocor] AdvReac Mild MYALGIAS Verified 06/17/19 06:53 Nylcyso-Gcr-Dsd Reductase AdvReac Mild Muscle Verified 06/17/19 06:53 Inhibitor aches and cramping. theophylline [From Silas-Dur] AdvReac Mild NON Verified 06/17/19 06:53 TOLERANT Home Medications Home Medications Medication Instructions Recorded Confirmed Type blood sugar diagnostic strips #10 ea 04/27/19 06/17/19 History lancets 26 gauge #50 ea 04/27/19 06/17/19 History vhlmhdrrqgtk-Qx-tmur-minerals 1 tab PO QAM 04/27/19 06/17/19 History aspirin 81 mg tablet,delayed 81 mg PO QAM 05/30/19 06/17/19 History release biotin 10 mg tablet 10 mg PO QAM tab 05/30/19 06/17/19 History cholecalciferol (vitamin D3) 5,000 5,000 units PO QAM 05/30/19 06/17/19 History unit capsule lisinopril 20 mg tablet 20 mg PO QAM tab 05/30/19 06/17/19 History metformin 500 mg tablet 500 mg PO QAM tab 05/30/19 06/17/19 History nitroglycerin 0.4 mg sublingual 0.4 mg SL UD PRN 05/30/19 06/17/19 History tablet glucosamine sulfate 500 mg capsule 500 mg PO BID cap 05/31/19 06/17/19 History coQ10 (ubiquinol) 200 mg PO QAM 06/07/19 06/17/19 History levothyroxine [Synthroid] 75 mcg PO QAM 06/07/19 06/17/19 History omeprazole 40 mg PO QAM 06/07/19 06/17/19 History Patient History Medical History SBO (small bowel obstruction) Spinal stenosis Arteriosclerotic coronary artery disease Carotid artery plaque Anxiety and depression Dyslipidemia GERD (gastroesophageal reflux disease) History of diverticulitis of colon Insomnia Moderate obstructive sleep apnea refused to wear CPAP Osteopenia Seasonal allergies Type 2 diabetes mellitus (Acute) Urinary incontinence Vitamin D deficiency Lumbar facet joint syndrome Scoliosis Hypothyroidism HTN (hypertension) (Acute) History of anesthesia reaction after last colonoscopy 2016 @ [facility] pt became dizzy with chest tightness and HTN in recovery area--Dr. Pankaj Montano sent pt to the ER for further evaluation (see anesthesia note from procedure), pt states no further issues and was discharged home. Intestinal mass hx of benign small mass on right side of colon---reason for partial colectomy Surgical History History of partial colectomy SEP 2013 Hx of cholecystectomy (Chronic) H/O hemorrhoidectomy History of appendectomy History of cataract surgery BILATERAL History of colonoscopy History of coronary artery bypass graft 2000-TRIPLE BYPASS @[facility] [place] History of esophagogastroduodenoscopy History of tooth extraction partial upper and lower dentures History of tubal ligation Hx of varicose vein ligation and stripping Family History Sister Family history of diabetes mellitus Mother Family history of diabetes mellitus Stroke Father Family history of diabetes mellitus Parkinsons disease Brother Family history of diabetes mellitus Grandfather (Paternal) Family history of stomach cancer Other No family history of adverse response to anesthesia Social History Preferred Language: Urdu Communication Ability: Effective Visual Impairment: Limited Hearing Ability: Normal Beliefs That Will Affect Care: None marital status: Current Living Situation: Spouse current occupational status: retired Feels Safe at Home: Yes Smoking Status: Never smoker Second Hand Exposure: Yes ( smoked) Hx Alcohol Use: Yes Alcohol type: wine Hx Substance Use: No Review of Systems Review of Systems: ROS: well nourished well developed in moderate distress NG tube draining liquid. No double vision blurry vision No problems with speech or swallowing No palpitations, chest pain or pressure No Wheezing or breathing issues Right upper quadrant crampy abdominal pain associate with nausea and vomiting No burning urine urine frequency or changes in color No focal joint pain or muscle pain No skin rashes or oral lesions No unusual bruising or bleeding No focused back pain or numbness or loss of strength No changes in memory or confusion Physical Exam Physical Exam: The patient appeared well nourished and normally developed. Vital signs as documented. Head exam is unremarkable. normocephalic, atraumatic she is a NG tube in her right nare Neck is without jugular venous distension, thyromegaly, or lymphademopathy Lungs are clear to auscultation and percussion. Cardiac exam reveals Rhythm is regular. First and second heart sounds normal. Abdominal exam reveals patient is hypoactive bowel sounds she is soft she is guarding in her central to right abdomen Extremities are nonedematous and both pedal pulses are present Neurologic exam is A&Ox3, no focal deficits, strength is equal bilateral Psychologically seems neither anxious or depressed Skin is warm Dry without bruises or lesions Results & Data Vital Signs (Past 12 Hours) Vital Signs Temp Pulse Pulse Pulse Resp BP BP 06/17/19 12:30 53 L 16 138/57 L 06/17/19 12:20 59 L 16 144/60 H 06/17/19 12:12 36.5 C 65 16 133/87 06/17/19 10:09 68 20 207/94 H 06/17/19 09:02 71 18 06/17/19 08:04 63 16 06/17/19 07:18 06/17/19 06:55 58 L 16 06/17/19 06:45 36.4 C L 80 16 206/107 H BP Pulse Ox 06/17/19 12:30 100 06/17/19 12:20 100 06/17/19 12:12 100 06/17/19 10:09 97 06/17/19 09:02 229/90 H 95 06/17/19 08:04 167/81 H 06/17/19 07:18 95 06/17/19 06:55 171/75 H 94 06/17/19 06:[address] scan abdomen pelvis:findings are consistent with a small bowel closed loop obstruction within the right lower quadrant as described above. This is adjacent to the previous ileocolonic anastomosis and could represent an internal hernia or adhesions. 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
[2019-06-17] MEDS ORDERED: NITROGLYCERIN SL 0.4 MG/TAB TAB SL PRN (13:32)
[2019-06-17] MEDS ORDERED: BLOOD SUGAR DIAGNOSTIC SCH (13:32)
[2019-06-17] MEDS ORDERED: LANCETS SCH (13:32)
[2019-06-17] MEDS ORDERED: MoRPHine SULFATE 2 MG/ML CARP ONE (13:38)
[2019-06-17] MEDS ORDERED: PROMETHAZINE HCL 12.5 MG in SODIUM CHLORIDE 0.9% 50 ML IV PRN (13:53)
[2019-06-17] MEDS: D5W AND 1/2NSS + 20MEQ KCL 20 MEQ/1,000 ML BAG IV SCH ×2 (15:06→23:53)
[2019-06-17] MEDS ORDERED: INSULIN ASPART 100 UNITS/ML 3 ML PEN SC SCH (16:30)
[2019-06-17] MEDS: MoRPHine SULFATE 2 MG/ML CARP IV PRN (16:55)
[2019-06-17] MEDS ORDERED: CEFAZOLIN 1000MG 1,000 MG/7.5 ML SYR IV SCH (19:00)
[2019-06-17] MEDS: INSULIN ASPART 100 UNITS/ML 3 ML PEN SC SCH ×2 (19:12→23:52)
[2019-06-17] MEDS: ONDANSETRON INJ 2 MG/ML 2 ML VIAL IV PRN (19:16)
[2019-06-17] MEDS: GLUCOSAMINE SULFATE 500 MG CAP PO SCH (19:29)
[2019-06-17] MEDS: FAMOTIDINE 20 MG in SYRINGE 3 ML IV SCH (20:47)
[2019-06-17] MEDS ORDERED: FAMOTIDINE 20MG/5ML IV PUSH IV SCH (21:00)
--- NOTE | 2019-06-17 22:33 | Operative Report ---
DATE OF OPERATION: 06/17/2019 PREOPERATIVE DIAGNOSIS: Small-bowel obstruction, possible loop small-bowel obstruction or internal hernia. POSTOPERATIVE DIAGNOSIS: Small-bowel obstruction, loop small-bowel obstruction. OPERATION: Exploratory laparotomy, lysis of adhesion. SURGEON: Luba Salvador MD ANESTHESIA: General. ESTIMATED BLOOD LOSS: About 10 mL. FINDINGS: Scar band causes loop small-bowel obstruction. COMPLICATIONS: None. INDICATIONS FOR THE PROCEDURE: This is an 84-year-old female who presented to ED with a 1-day history of acute abdominal pain. The patient had a CT scan diagnosis of small-bowel obstruction possibly caused by the loop small-bowel obstruction or internal hernia. We decided to take the patient to the OR to do the exploratory laparotomy, possible bowel resection, stoma. I did talk to the patient and the patient's daughter about the benefits, risks, and alternate procedures. I indicated the risks may include but not limited such as bleeding, infection, injury to the bowel, myocardial infarction, DVT, stroke, anastomotic leak, even . They understand. The patient's daughter signed informed consent and I answered all questions. DETAILS OF PROCEDURE: We brought in the patient to the OR, put the patient in the supine position. The patient received SCD on bilateral legs to prevent DVT. Also patient received 2 grams of Ancef IV for prophylactic antibiotic. The patient received general anesthesia without difficulty. The patient received Bains catheter insertion. The abdomen was prepped and draped in routine sterile fashion. After time-out, I made a midline incision about 10 cm and got into the abdomen without difficulty and there was some free fluid on the abdomen and no infection sign. Then we mobilized the right side of the abdomen, small bowel. There was one scar band that caused loop small-bowel obstruction. Once we released the scar band, the small-bowel obstruction was released. No bowel perforation. At this moment, I used 3-0 Vicryl to reinforce the scar site on the small bowel. Then we suctioned some of the fluid in the abdomen. We rechecked all of the small bowel, large bowel, and no obstruction and then hemostasis was obtained. Closed the incision fascial layer by using PDS continuous running, closed subcutaneous layer by using 2-0 Vicryl continuous running, closed skin by using staple. Then we put the dressing on. The patient tolerated the procedure well. All the instrument, needle, and sponge count were correct x2 at the end of the case. The patient was transferred to recovery room in stable condition. I attest to the content of the Intraoperative Record and any orders documented therein. Any exceptions are noted below. MTDD
[2019-06-18] MEDS: MoRPHine SULFATE 2 MG/ML CARP IV PRN ×2 (00:02→06:05)
[2019-06-18] MEDS: INSULIN ASPART 100 UNITS/ML 3 ML PEN SC SCH ×4 (06:09→21:05)
[2019-06-18 07:00] LABS: Basophils # (auto) 0.01 K/uL (0-0.2); Basophils % (auto) 0.1 %; Eosinophils % (auto) 1.1 %; Hematocrit (blood only) 39.9 % (37-47); Immature Granulocytes # (auto) 0.01 K/uL (0.00-0.02); Immature Granulocytes % (auto) 0.1 %; Lymphocytes # (auto) 1.42 K/uL (1.2-3.4); Lymphocytes % (auto) 14.9 %; Mean Corpuscular Hgb Conc 32.6 g/dL (32-36); Mean Corpuscular Volume 90.3 fL (80-100); Mean Platelet Volume 8.8 fL (7.4-10.4); Monocytes # (auto) 0.94 K/uL (0.11-0.59); Monocytes % (auto) 9.9 %; Neutrophils # (auto) 7.04 K/uL (1.4-6.5); Neutrophils % (auto) 73.9 %; Platelet Count 304 K/uL (130-400); RDW Coefficient of Variation 14.7 % (11.5-14.5); RDW Standard Deviation 48.6 fL (36.4-46.3); Red Blood Count 4.42 M/uL (4.2-5.4); White Blood Count 9.52 K/uL (4.8-10.8)
[2019-06-18 07:28] LABS: Albumin Level 2.6 gm/dl (3.4-5.0); BUN Creatinine Ratio 11.3 (10-20); Calcium 8.2 mg/dl (8.5-10.1); Est GFR (Non-African American) 63.8; Potassium 4.2 mmol/L (3.5-5.1)
[2019-06-18 07:35] LABS: Albumin Globulin Ratio 0.8 (0.9-2); Bilirubin,Total 0.8 mg/dl (0.2-1); Globulin 3.1 gm/dl (2.5-4.0); Total Protein 5.7 gm/dl (6.4-8.2)
[2019-06-18] MEDS ORDERED: BISACODYL 10 MG SUPP PR STA (08:05)
--- NOTE | 2019-06-18 08:10 | Surgery Progress Note ---
Date of Service pt is doing better, less abdominal pain, no nausea, no vomiting, no fever, NG 0, June 18, 2019 Assessment & Plan (1) SBO (small bowel obstruction): pt is a 84 year-old who presents to ER with 9 hours acute abdominal pain, CT Scan dx possible loop SBO, or internal hernia, IMP: SBO possible loop or internal hernia, Plan, I recommend to do emergent exploratory laparotomy, possible bowel resection or stoma, D/W benefits, risks and alternatives of the surgery with pt and her son and daughter, the risks - infection, bleeding, injury Bowel, [place], DVT, stroke, anastomotic leak, , they understood, they agree with the surgery, I answered all questions, I also gave pt other option, if pt wants to transfer to higher level care, pt wants to do surgery at this hospital. Hospitalist consult for pre-op, and post - management, D/W ER attending. 06/18/2019 8:08am POD 1, update or finding information to pt. doing fine, pulled NG tube, clear diet, OOB stool softner will F/U Physical Exam Constitutional: WD/WN, vitals as above well developed and well nourished ENMT: external ear and nose normal, oropharynx normal Neck: trachea midline, no thyromegaly Respiratory: normal respiratory effort, lungs clear to auscultation normal respiratory effort Cardiovascular: RRR, no murmur, no edema Rate/Rhythm: regular rate, regular rhythm and + bradycardic Heart Sounds: normal S1 and normal S2 Gastrointestinal (Abdomen): Percussion/Palpation: + abdomen tender mild tenderness, all incisions intact, no redness, no drainage, BS+ Musculoskeletal: no cyanosis or clubbing, extremities motor strength 5/5 Neurologic: patellar DTR's 2+ bilat, sensation intact Psychiatric: Orientation: alert and oriented x 3 Lymphatic: no cervical or axillary lymphadenopathy Results & Data Vital Signs (Past 12 Hours) Vital Signs Temp Pulse Resp BP Pulse Ox 06/18/19 03:11 36.6 C 81 16 126/77 96 06/17/19 23:03 36.8 C 85 16 143/82 H 96
[2019-06-18 08:21] LABS: Estimated Average Glucose 140 mg/dl; Hemoglobin A1C 6.5 % (4.5-5.6)
[2019-06-18] MEDS ORDERED: NON-FORMULARY MEDICATION (Biotin 10 MG) PO SCH (09:00)
[2019-06-18] MEDS ORDERED: LEVOTHYROXINE SODIUM 75 MCG TABLET PO SCH (09:00)
[2019-06-18] MEDS ORDERED: NON-FORMULARY MEDICATION (Omeprazole 40 MG) PO SCH (09:00)
[2019-06-18] MEDS ORDERED: MULTIVITAMIN CA IRON MINERALS PO SCH (09:00)
[2019-06-18] MEDS ORDERED: NON-FORMULARY MEDICATION (Coq10 (Ubiquinol) 200 MG) PO SCH (09:00)
[2019-06-18] MEDS ORDERED: LISINOPRIL 20 MG TAB PO SCH (09:00)
[2019-06-18] MEDS ORDERED: CHOLECALCIFEROL 5000 UNIT PO SCH (09:00)
[2019-06-18] MEDS ORDERED: ASPIRIN 81 MG ECTAB PO SCH (09:00)
[2019-06-18] MEDS ORDERED: METFORMIN HCL 500 MG TAB PO SCH (09:00)
[2019-06-18] MEDS: D5W AND 1/2NSS + 20MEQ KCL 20 MEQ/1,000 ML BAG IV SCH ×2 (09:40→19:45)
[2019-06-18] MEDS: POLYETHYLENE (MIRALAX) 17 GM PACK PO SCH (09:44)
[2019-06-18] MEDS: GLUCOSAMINE SULFATE 500 MG CAP PO SCH ×2 (09:45→20:53)
[2019-06-18] MEDS: FAMOTIDINE 20 MG in SYRINGE 3 ML IV SCH ×2 (09:47→20:53)
[2019-06-18] MEDS: LEVOTHYROXINE SODIUM 35 MCG in SYRINGE 0 ML IV SCH (09:47)
[2019-06-18] MEDS ORDERED: Nursing to Pharmacy Communication ONE (10:02)
[2019-06-18] MEDS: TRAMADOL HCL 50 MG TABLET PO PRN (12:25)
--- NOTE | 2019-06-18 12:51 | Hospitalist Progress Note ---
Date of Service June 18, 2019 Assessment & Plan (1) Type 2 diabetes mellitus: Patient typically takes metformin this will be on hold due to sliding scale insulin at this time until she regains her p.o. status (2) Hypothyroidism: Patient is on Synthroid be converted IV dose at roughly 50% of her p.o. dose (3) HTN (hypertension): Patient's blood pressures typically controlled with lisinopril will have hydralazine and clonidine for back-up seems to be no need to start enalapril AT for scheduled dosing (4) GERD (gastroesophageal reflux disease): Typically takes omeprazole either this or Pepcid will be continued (5) SBO (small bowel obstruction): Surgical correction on 06/17 Subjective pt is with some abdominal pain, no nausea no flatus or bm Review of Systems Review of Systems: ROS: well nourished well developed. No double vision blurry vision No problems with speech or swallowing No palpitations, chest pain or pressure No Wheezing or breathing issues diffuse abdominal pain, nausea no vomiting No burning urine urine frequency or changes in color No focal joint pain or muscle pain No skin rashes or oral lesions No unusual bruising or bleeding No focused back pain or numbness or loss of strength No changes in memory or confusion Physical Exam Physical Exam: The patient appeared well nourished and normally developed. Vital signs as documented. Head exam is unremarkable. normocephalic, atraumatic Neck is without jugular venous distension, thyromegaly, or lymphademopathy Lungs are clear to auscultation and percussion. Cardiac exam reveals Rhythm is regular. First and second heart sounds normal. Abdominal exam reveals hypoactive bowel sounds, mildly tender but appropriately for post op Extremities are nonedematous and both pedal pulses are present Neurologic exam is A&Ox3, no focal deficits, strength is equal bilateral Psychologically seems neither anxious or depressed Skin is warm Dry Results & Data Vital Signs (Past 12 Hours) Vital Signs Temp Pulse Pulse Resp BP BP Pulse Ox 06/18/19 12:00 37.0 C 74 14 136/64 97 06/18/19 08:00 36.7 C 78 12 142/70 H 98 06/18/19 03:11 36.6 C 81 16 126/77 96 PG Care Time/CCT Total # of Minutes Spent Total Time Spent with Patient: Total time spent is greater than 50% in coordination of care (as documented) at patient's floor/unit and/or counseling patient: (1) Type 2 diabetes mellitus Diabetes mellitus complication status: without complication 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
[2019-06-19] MEDS: D5W AND 1/2NSS + 20MEQ KCL 20 MEQ/1,000 ML BAG IV SCH ×2 (04:05→14:18)
[2019-06-19] MEDS: TRAMADOL HCL 50 MG TABLET PO PRN ×2 (04:05→18:11)
[2019-06-19] MEDS: ONDANSETRON INJ 2 MG/ML 2 ML VIAL IV PRN (07:39)
[2019-06-19] MEDS: GLUCOSAMINE SULFATE 500 MG CAP PO SCH ×2 (08:44→20:33)
[2019-06-19] MEDS: FAMOTIDINE 20 MG in SYRINGE 3 ML IV SCH ×2 (08:44→20:35)
[2019-06-19] MEDS: LEVOTHYROXINE SODIUM 35 MCG in SYRINGE 0 ML IV SCH (08:44)
[2019-06-19] MEDS: INSULIN ASPART 100 UNITS/ML 3 ML PEN SC SCH ×4 (08:46→21:56)
[2019-06-19] MEDS: POLYETHYLENE (MIRALAX) 17 GM PACK PO SCH (08:47)
[2019-06-19] MEDS ORDERED: ENOXAPARIN INJ 30 MG/0.3 ML SYR SQ SCH (11:30)
--- NOTE | 2019-06-19 11:35 | Surgery Progress Note ---
Date of Service doing better, no abdominal pain, pt walked on hallway, no nausea, no vomiting, she tolerated clear diet, passed a little of gas. June 19, 2019 Assessment & Plan (1) SBO (small bowel obstruction): pt is a 84 year-old who presents to ER with 9 hours acute abdominal pain, CT Scan dx possible loop SBO, or internal hernia, IMP: SBO possible loop or internal hernia, Plan, I recommend to do emergent exploratory laparotomy, possible bowel resection or stoma, D/W benefits, risks and alternatives of the surgery with pt and her son and daughter, the risks - infection, bleeding, injury Bowel, [place], DVT, stroke, anastomotic leak, , they understood, they agree with the s urgery, I answered all questions, I also gave pt other option, if pt wants to transfer to higher level care, pt wants to do surgery at this hospital. Hospitalist consult for pre-op, and post - management, D/W ER attending. 06/18/2019 8:08am POD 1, update or finding information to pt. doing fine, pulled NG tube, clear diet, OOB stool softner will F/U 06/19/2019 11:33am. doing better, tolertaed clera diet, soft diet, lovenox 30mg SQ once a dys, PT, possible go home tomorrow, Subjective pt is with some abdominal pain, no nausea no flatus or bm Physical Exam Constitutional: WD/WN, vitals as above well developed and well nourished ENMT: external ear and nose normal, oropharynx normal Neck: trachea midline, no thyromegaly Respiratory: normal respiratory effort, lungs clear to auscultation normal respiratory effort Cardiovascular: RRR, no murmur, no edema Rate/Rhythm: regular rate, regular rhythm and + bradycardic Heart Sounds: normal S1 and normal S2 Gastrointestinal (Abdomen): Percussion/Palpation: abdomen soft NT, ND BS + Musculoskeletal: no cyanosis or clubbing, extremities motor strength 5/5 Neurologic: patellar DTR's 2+ bilat, sensation intact Psychiatric: Orientation: alert and oriented x 3 Lymphatic: no cervical or axillary lymphadenopathy Results & Data Vital Signs (Past 12 Hours) Vital Signs Temp Pulse Resp BP Pulse Ox 06/19/19 07:24 36.9 C 94 H 16 133/83 97
--- NOTE | 2019-06-19 23:35 | Hospitalist Progress Note ---
Date of Service June 19, 2019 Assessment & Plan (1) Type 2 diabetes mellitus: Patient typically takes metformin this will be on hold due to sliding scale insulin at this time until AM. Blood sugar appears at goal. (2) Hypothyroidism: Patient is on Synthroid be converted IV dose at roughly 50% of her p.o. dose; will switch to PO in AM. (3) HTN (hypertension): Patient's blood pressures typically controlled with lisinopril will have hydralazine and clonidine for back-up seems to be no need to start enalapril AT for scheduled dosing (4) GERD (gastroesophageal reflux disease): Typically takes omeprazole either this or Pepcid will be continued (5) SBO (small bowel obstruction): Surgical correction on 06/17 Plan is to discharge patient within next 24-48 hours. Will sign off case. Please call if any further management is required. Subjective Patient continues to complain of abdominal pain. Patient denies any BM at this time. Patient denies any new complaints. Review of Systems Review of Systems: All systems reviewed & are unremarkable except as noted in HPI & below Physical Exam Physical Exam: The patient appeared well nourished and normally developed. Vital signs as documented. Head exam is unremarkable. normocephalic, atraumatic Neck is without jugular venous distension, thyromegaly, or lymphademopathy Lungs are clear to auscultation and percussion. Cardiac exam reveals Rhythm is regular. First and second heart sounds normal. Abdominal exam reveals hypoactive bowel sounds, mildly tender but appropriately for post op Extremities are nonedematous and both pedal pulses are present Neurologic exam is A&Ox3, no focal deficits, strength is equal bilateral Psychologically seems neither anxious or depressed Skin is warm Dry Results & Data Vital Signs (Past 12 Hours) Vital Signs Temp Pulse Pulse Resp BP BP Pulse Ox 06/19/19 23:04 36.2 C L 75 16 156/76 H 97 06/19/19 15:46 36.6 C 76 16 146/75 H 98 PG Care Time/CCT Total # of Minutes Spent Total Time Spent with Patient: Total time spent is greater than 50% in coordination of care (as documented) at patient's floor/unit and/or counseling patient: (1) Type 2 diabetes mellitus Diabetes mellitus complication status: without complication 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
[2019-06-20] MEDS: D5W AND 1/2NSS + 20MEQ KCL 20 MEQ/1,000 ML BAG IV SCH (00:10)
[2019-06-20] MEDS ORDERED: BISACODYL 5 MG TABEC PO ONE (07:03)
[2019-06-20] MEDS ORDERED: SOD PHOSPHATE/SOD BIPHOSPHATE ENEMA 132 ML BTL PR STA (07:05)
--- NOTE | 2019-06-20 07:08 | Surgery Progress Note ---
Date of Service doing better, passed some gas, no nausea, no vomiting, June 20, 2019 Assessment & Plan (1) SBO (small bowel obstruction): pt is a 84 year-old who presents to ER with 9 hours acute abdominal pain, CT Scan dx possible loop SBO, or internal hernia, IMP: SBO possible loop or internal hernia, Plan, I recommend to do emergent exploratory laparotomy, possible bowel resection or stoma, D/W benefits, risks and alternatives of the surgery with pt and her son and daughter, the risks - infection, bleeding, injury Bowel, [place], DVT, stroke, anastomotic leak, , they understood, they agree with the surgery, I answered all questions, I also gave pt other option, if pt wants to transfer to higher level care, pt wants to do surgery at this hospital. Hospitalist consult for pre-op, and post - management, D/W ER attending. 06/18/2019 8:08am POD 1, update or finding information to pt. doing fine, pulled NG tube, clear diet, OOB stool softner will F/U 06/19/2019 11:33am. doing better, tolertaed clera diet, soft diet, lovenox 30mg SQ once a dys, PT, possible go home tomorrow, 06/20/2019 7:07am continue treatment, dulcolax 10 mg po, fleet enema will F/U Subjective pt is with some abdominal pain, no nausea no flatus or bm Physical Exam Constitutional: WD/WN, vitals as above well developed and well nourished ENMT: external ear and nose normal, oropharynx normal Neck: trachea midline, no thyromegaly Respiratory: normal respiratory effort, lungs clear to auscultation normal respiratory effort Cardiovascular: RRR, no murmur, no edema Rate/Rhythm: regular rate, regular rhythm and + bradycardic Heart Sounds: normal S1 and normal S2 Gastrointestinal (Abdomen): Inspection/Auscultation: + abdomen distended Percussion/Palpation: abdomen soft Musculoskeletal: no cyanosis or clubbing, extremities motor strength 5/5 Neurologic: patellar DTR's 2+ bilat, sensation intact Psychiatric: Orientation: alert and oriented x 3 Lymphatic: no cervical or axillary lymphadenopathy Results & Data Vital Signs (Past 12 Hours) Vital Signs Temp Pulse Resp BP Pulse Ox 06/19/19 23:04 36.2 C L 75 16 156/76 H 97
[2019-06-20] MEDS ORDERED: D5W AND 1/2NSS + 20MEQ KCL 20 MEQ/1,000 ML BAG IV SCH (07:15)
[2019-06-20 07:56] LABS: Basophils # (auto) 0.02 K/uL (0-0.2); Basophils % (auto) 0.3 %; Eosinophils % (auto) 2.7 %; Hematocrit (blood only) 39.6 % (37-47); Hemoglobin 13.3 g/dL (12.0-16.0); Immature Granulocytes # (auto) 0.01 K/uL (0.00-0.02); Immature Granulocytes % (auto) 0.1 %; Lymphocytes # (auto) 1.38 K/uL (1.2-3.4); Lymphocytes % (auto) 18.8 %; Mean Corpuscular Hgb Conc 33.6 g/dL (32-36); Mean Corpuscular Volume 88.2 fL (80-100); Mean Platelet Volume 8.9 fL (7.4-10.4); Monocytes # (auto) 0.89 K/uL (0.11-0.59); Monocytes % (auto) 12.1 %; Neutrophils # (auto) 4.85 K/uL (1.4-6.5); Platelet Count 279 K/uL (130-400); RDW Coefficient of Variation 14.1 % (11.5-14.5); RDW Standard Deviation 45.8 fL (36.4-46.3); Red Blood Count 4.49 M/uL (4.2-5.4); White Blood Count 7.35 K/uL (4.8-10.8)
[2019-06-20 08:05] LABS: Partial Thromboplastin Time 27.2 Seconds (21.0-31.0); Prothrombin Time 10.6 Seconds (9.0-12.0)
[2019-06-20 08:30] LABS: BUN Creatinine Ratio 9.1 (10-20); Calcium 8.8 mg/dl (8.5-10.1); Creatinine Clr Calc Pharmacy 59.3 ml/min; Est GFR (African American) 95.3; Est GFR (Non-African American) 82.3; Potassium 4.2 mmol/L (3.5-5.1)
[2019-06-20] MEDS: GLUCOSAMINE SULFATE 500 MG CAP PO SCH ×2 (08:51→21:00)
[2019-06-20] MEDS: ENOXAPARIN INJ 30 MG/0.3 ML SYR SQ SCH (08:51)
[2019-06-20] MEDS: POLYETHYLENE (MIRALAX) 17 GM PACK PO SCH (08:52)
[2019-06-20] MEDS: LEVOTHYROXINE SODIUM 35 MCG in SYRINGE 0 ML IV SCH (08:52)
[2019-06-20] MEDS: FAMOTIDINE 20 MG in SYRINGE 3 ML IV SCH (08:52)
[2019-06-20] MEDS: INSULIN ASPART 100 UNITS/ML 3 ML PEN SC SCH (08:52)
[2019-06-20] MEDS ORDERED: POLYETHYLENE (MIRALAX) 17 GM PACK PO SCH (09:00)
[2019-06-20] MEDS ORDERED: INSULIN ASPART 100 UNITS/ML 3 ML PEN SC SCH (09:04)
[2019-06-20] MEDS ORDERED: METFORMIN HCL 500 MG TAB PO ONE (09:15)
[2019-06-20] MEDS ORDERED: LEVOTHYROXINE SODIUM 75 MCG TABLET PO ONE (09:15)
[2019-06-20] MEDS: TRAMADOL HCL 50 MG TABLET PO PRN (14:08)
[2019-06-20] MEDS: RANITIDINE HCL SYRUP 150 MG/10 ML UDC PO SCH (21:00)
[2019-06-21] MEDS ORDERED: LEVOTHYROXINE SODIUM 75 MCG TABLET PO SCH (06:30)
[2019-06-21] MEDS ORDERED: METFORMIN HCL 500 MG TAB PO SCH (08:00)
[2019-06-21] MEDS: RANITIDINE HCL SYRUP 150 MG/10 ML UDC PO SCH (08:42)
[2019-06-21] MEDS: GLUCOSAMINE SULFATE 500 MG CAP PO SCH (08:42)
[2019-06-21] MEDS: ENOXAPARIN INJ 30 MG/0.3 ML SYR SQ SCH (08:42)
[2019-06-21] MEDS: POLYETHYLENE (MIRALAX) 17 GM PACK PO SCH (08:43)
--- NOTE | 2019-06-21 11:19 | Surgery Progress Note ---
Date of Service pt is doping fine, passed BM X 3, pt denies abdominal pain, no nausea, no vomiting, June 21, 2019 Assessment & Plan (1) SBO (small bowel obstruction): pt is a 84 year-old who presents to ER with 9 hours acute abdominal pain, CT Scan dx possible loop SBO, or internal hernia, IMP: SBO possible loop or internal hernia, Plan, I recommend to do emergent exploratory laparotomy, possible bowel resection or stoma, D/W benefits, risks and alternatives of the surgery with pt and her son and daughter, the risks - infection, bleeding, injury Bowel, TN, DVT, stroke, anastomotic leak, , they understood, they agree with the surgery, I answered all questions, I also gave pt other option, if pt wants to transfer to higher level care, pt wants to do surgery at this hospital. Hospitalist consult for pre-op, and post - management, D/W ER attending. 06/18/2019 8:08am POD 1, update or finding information to pt. doing fine, pulled NG tube, clear diet, OOB stool softner will F/U 06/19/2019 11:33am. doing better, tolertaed clera diet, soft diet, lovenox 30mg SQ once a dys, PT, possible go home tomorrow, 06/20/2019 7:07am continue treatment, dulcolax 10 mg po, fleet enema will F/U 06/21/2019 11:18am Discharge home today the post op care instruction was given, F/U 1-2 weeks, Subjective pt is with some abdominal pain, no nausea no flatus or bm Physical Exam Constitutional: WD/WN, vitals as above well developed and well nourished Neck: trachea midline, no thyromegaly Respiratory: normal respiratory effort, lungs clear to auscultation Cardiovascular: RRR, no murmur, no edema Rate/Rhythm: regular rate and regular rhythm Gastrointestinal (Abdomen): Percussion/Palpation: abdomen soft NT, ND, BS +, incision intact, no redness, Musculoskeletal: no cyanosis or clubbing, extremities motor strength 5/5 Neurologic: awake Psychiatric: Orientation: alert and oriented x 3 Results & Data Vital Signs (Past 12 Hours) Vital Signs Temp Pulse Resp BP BP Pulse Ox 06/21/19 07:54 36.8 C 79 18 119/80 96 07/31/19 23:15 36.9 C 77 18 156/82 H 95
--- NOTE | 2019-06-22 01:05 | Discharge Summary ---
ADMITTING DIAGNOSIS: Small bowel obstruction. DISCHARGE DIAGNOSIS: Small bowel obstruction. OPERATION: Exploratory laparotomy, lysis of adhesions. SURGEON: Luba Salvador MD DETAILS OF DISCHARGE SUMMARY: The patient is an 84-year-old female who presented to ED with acute abdominal pain with nausea and vomiting. The patient had a CT scan diagnosis of acute small-bowel obstruction. We took the patient to the OR. We did exploratory laparotomy and lysis of adhesion. The patient tolerated the procedure well and patient is doing fine after procedure and the patient passed stool and gas and she tolerated a regular diet. No abdominal pain. PHYSICAL EXAMINATION: VITAL SIGNS: Temperature is 36.8, respiratory rate is 18, blood pressure is 119/80, pulse is 79, O2 saturation is 96% on room air. GENERAL: The patient is alert, awake, oriented x3. HEENT: Within normal limitation. NEUROLOGIC: Intact. NECK: No JVD. CHEST: Bilateral lung sounds clear. HEART: Normal S1, S2. No murmur. ABDOMEN: Soft, no tenderness, not distended. Bowel sounds positive. Incision is intact. No redness, no drainage. EXTREMITIES: No edema. PLAN: The patient wanted to go home. I gave the patient postop care instructions. I will follow up the patient in 1 or 2 weeks. The patient understands.
== END 2019-06-21 14:32 | disposition home health service (06) | DRG 337 ==
LOC: ED 06:38 → ASU 10:09 → 3W 12:37

== ENCOUNTER 2022-06-16 12:38 | Inpatient (IN) ==
[2022-06-16 13:14] LABS: Basophils # (auto) 0.02 K/uL (0-0.2); Basophils % (auto) 0.2 %; Eosinophils % (auto) 1.2 %; Hematocrit (blood only) 40.4 % (34.1-44.9); Hemoglobin 13.5 g/dl (12.0-16.0); Immature Granulocytes # (auto) 0.01 K/uL (0.00-0.02); Immature Granulocytes % (auto) 0.1 %; Lymphocytes # (auto) 2.78 K/uL (1.2-3.4); Lymphocytes % (auto) 32.8 %; Mean Corpuscular Hemoglobin 29.8 pg (25.0-34.0); Mean Corpuscular Hgb Conc 33.4 g/dL (32.0-36.0); Mean Corpuscular Volume 89.2 fL (80.0-100.0); Mean Platelet Volume 8.8 fL (9.4-12.3); Monocytes # (auto) 0.73 K/uL (0.24-0.82); Monocytes % (auto) 8.6 %; Neutrophils # (auto) 4.83 K/uL (1.4-6.5); Neutrophils % (auto) 57.1 %; Platelet Count 338 K/uL (130-400); RDW Coefficient of Variation 13.5 % (11.5-14.5); RDW Standard Deviation 44.3 fL (36.4-46.3); Red Blood Count 4.53 M/uL (3.93-5.22); White Blood Count 8.47 K/ul (4.8-10.8)
--- NOTE | 2022-06-16 13:29 | XRay Report ---
XR chest 1V portable CLINICAL HISTORY: weakness. Chest tightness COMPARISON STUDY: 07/11/2021 TECHNIQUE: 1 view of the chest FINDINGS: Single frontal view of the chest demonstrates the cardiomediastinal silhouette to be within normal li mits. The patient is status post previous cardiothoracic surgery. The lungs are clear of alveolar opa cities. There is no evidence for pleural effusion. There is no evidence for vascular congestion. Ther e is no acute osseous pathology. IMPRESSION: 1. No acute cardiopulmonary disease. ACT 112: Negative or not required by law. Electronically signed by: Pavel Conte M.D. 06/16/2022 1:27 PM
[2022-06-16 13:30] LABS: Alanine Aminotransferase 12 U/L (7-52); Albumin Globulin Ratio 1.5 (0.9-2); Albumin Level 4.1 gm/dl (3.4-5.0); Alkaline Phosphatase 62 U/L (34-104); Anion Gap 11 (3-11); Aspartate Aminotransferase 19 U/L (13-39); BUN Creatinine Ratio 22.2 (10-20); Bilirubin,Total 0.8 mg/dl (0.2-1.0); Blood Urea Nitrogen 16 mg/dl (6-23); Calcium 9.6 mg/dl (8.5-10.1); Carbon Dioxide 23 mmol/L (21-32); Chloride 101 mmol/L (98-107); Est GFR (African American) 88.5 ml/min; Est GFR (Non-African American) 76.4 ml/min; Globulin 2.7 gm/dl (2.5-4.0); Glucose 124 mg/dl (70-99(Fasting)); Magnesium 1.7 mg/dl (1.7-2.4); Sodium 135 mmol/L (136-145); Total Protein 6.8 gm/dl (6.0-8.3)
[2022-06-16 13:37] LABS: Troponin I High Sensitivity 53.3 pg/ml (0-14)
[2022-06-16 13:44] LABS: Thyroid Stimulating Hormone 0.093 uIu/ml (0.300-4.500)
[2022-06-16] MEDS ORDERED: NITROGLYCERIN 2% OINTMENT 30GM TUBE EXT STA (13:49)
[2022-06-16] MEDS ORDERED: NITROGLYCERIN SL 0.4 MG/TAB TAB SL STA ×2 (13:49→15:10)
[2022-06-16 14:17] LABS: T4 Free Thyroxine 1.81 ng/dl (0.61-1.60)
[2022-06-16] MEDS ORDERED: METOPROLOL TARTRATE 25 MG TAB PO STA (14:46)
[2022-06-16] MEDS ORDERED: Heparin IV Adult Wt-Based Standard WITH Bolus Protocol IV SCH (14:52)
[2022-06-16] MEDS ORDERED: HEPARIN SOD (PORCINE) 1000 UNIT/ML IV ONE ×2 (15:01)
--- NOTE | 2022-06-16 15:03 | History & Physical Report ---
Date of Service June 16, 2022 Assessment & Plan (1) Chest pain: Plan: Acute onset chest pain with radiation to left shoulder in ambulance on way to ER. EKG is stable. Initial troponin was drawn only 15 minutes after onset of chest pain and was 53. Received ASA 324 mg PO in the ambulance. - Chest pain down to 5/10 (from 9/10) after nitroglycerin 0.4 mg SL x 1. -> Repeat now - Start heparin gtt, beta-dillon - Discussed case with cardiology re: urgent cath vs. medical management if chest pain does not improve with topical and sublingual nitroglycerin. - Urgent echo ordered - Repeat troponin STAT (2) Dizziness: Plan: Positional in nature with it worse when she sits up or lies flat. Sounds like BPPV. - Defer PT until chest pain is more thoroughly investigated - Monitor symptoms (3) Arteriosclerotic coronary artery disease: Plan: 3vCABG in 2002. Follows with Dr. Norton. Statin intolerant. - Continue ezetimibe - Other meds/plan as above (4) Type 2 diabetes mellitus: Plan: A1c was 6.2% in 02/2022. Appears to be diet-controlled as she is not on oral med ications for DM. - Sliding scale insulin (5) HTN (hypertension): Plan: BP is 165/90 in the ER. - Continue home lisinopril - Monitor (6) Hypothyroidism: Plan: TSH was 0.093 with elevated FT4 this admission. - Lower home Synthroid to 88 mcg daily (from home 100 mcg) - Recheck in 4-6 weeks (7) Seasonal allergies: Plan: - Continue cetirizine (8) DVT prophylaxis: Plan: Presently ordering an empiric heparin gtt for concern for ACS. History of Present Illness Primary Care Provider: Candice Gonzalez DO 87yo F w/ hx of CAD s/p 3vCABG in 2002 who presents for chest pain. Was in her normal state of health last night when she went to bed. Woke up at 5:30 to go to the bathroom, and was fine, but when she lay down, she had acute onset of dizziness/vertigo. She lay there until 7:30, when she got up again. The dizziness was bad enough that she fell into the sink (but did not strike her head or chest). She caught herself with her arms. She got back to bed, but the dizziness was worse with lying down, so she just sat on the edge of the bed for nearly 1 hour. Around that time, her left arm became a little numb. This has occurred in the past (but with the arms and legs at the same time). She came downstairs and got some coffee and toast. She went back upstairs, but because she just didn't feel right, she decided to call an ambulance. In the ambulance, she had acute onset of chest pain under the sternal and toward the left chest and shoulder. She describes the pain as a tightness without any alleviating factors. She also became profoundly nauseated and threw up. She denies shortness of breath, abdominal pain, diaphoresis. She notes increasing anginal symptoms over the last month or so where when she walks up a flight of stairs with increasing shortness of breath and palpitations that resolve with rest. Allergies Allergy/AdvReac Type Severity Reaction Status Date / Time ciprofloxacin [From Cipro] Allergy Mild nauseated Verified 06/16/22 14:54 furosemide [From Lasix] Allergy Unknown Unknown Verified 06/16/22 14:54 hydrochlorothiazide Allergy Unknown Unknown Verified 06/16/22 14:54 nitrofurantoin Allergy Unknown Unknown Verified 06/16/22 14:54 [From Macrobid] codeine AdvReac Severe CHEST PAIN Verified 06/16/22 14:54 felodipine [From Plendil] AdvReac Mild NON Verified 06/16/22 14:54 TOLERANT oxycodone [From Percocet] AdvReac Mild NON Verified 06/16/22 14:54 TOLERANT pravastatin [From Pravachol] AdvReac Mild MYALGIAS Verified 06/16/22 14:54 simvastatin [From Zocor] AdvReac Mild MYALGIAS Verified 06/16/22 14:54 Yhecktz-ETP-PcG Reductase AdvReac Mild Muscle Verified 06/16/22 14:54 Inhibitor aches and [[id number]-Ewd Reductase cramping. Inhibitor] theophylline [From Silas-Dur] AdvReac Mild NON Verified 06/16/22 14:54 TOLERANT Home Medications Medication Instructions Recorded Confirmed Type lancets 26 gauge ([place] 1 #50 ea 04/27/19 03/11/22 History Lancets) aspirin 81 mg tablet,delayed 81 mg PO QAM 05/30/19 06/16/22 History release biotin 10 mg tablet 10 mg PO QAM 05/30/19 06/16/22 History cholecalciferol (vitamin D3) 125 5,000 units PO QAM 05/30/19 06/16/22 History mcg (5,000 unit) capsule nitroglycerin 0.4 mg sublingual 0.4 mg sublingual UD PRN Chest Pain 05/30/19 06/16/22 History tablet (Nitrostat) omeprazole 20 mg capsule,delayed 20 mg PO DAILY 12/13/19 06/16/22 History release calcium carb,cit ER 600 mg-vit D3 1 tab PO BID #60 tabs 01/16/20 06/16/22 Rx 12.5 mcg (500 unit) tablet,ext.rel (Citracal-D3 Slow Release) blood sugar diagnostic (Blood #100 ea 05/18/21 03/11/22 Rx Glucose Test) blood-glucose meter (Blood Glucose #1 ea 05/18/21 03/11/22 Rx Monitoring) ezetimibe 10 mg tablet 10 mg PO DAILY 07/02/21 06/16/22 History cetirizine 10 mg tablet (Zyrtec) 10 mg PO DAILY #30 tabs 11/26/21 06/16/22 Rx lisinopril 20 mg tablet 20 mg PO QAM #90 tabs 12/17/21 06/16/22 Rx oxybutynin chloride 5 mg 5 mg PO DAILY #30 tabs 02/17/22 06/16/22 Rx tablet,extended release 24 hr sertraline 25 mg tablet 25 mg PO DAILY #30 tabs 02/17/22 06/16/22 Rx Synthroid 100 mcg tablet 100 mcg PO DAILY #30 tabs 04/14/22 06/16/22 Rx (levothyroxine) Past Med/Surg History Medical History Anxiety and depression Arteriosclerotic coronary artery disease Carotid artery plaque COVID-19 (06/2021) Dyslipidemia GERD (gastroesophageal reflux disease) History of anesthesia reaction after last colonoscopy 2016 @ [facility] pt became dizzy with chest tightness and HTN in recovery area--Dr. Pankaj Montano sent pt to the ER for further evaluation (see anesthesia note from procedure), pt states no further issues and was discharged home. 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 Osteoporosis Reactive airway disease SBO (small bowel obstruction) Scoliosis Seasonal allergies Spinal stenosis Type 2 diabetes mellitus Urinary incontinence Vitamin D deficiency Surgical History H/O hemorrhoidectomy History of appendectomy History of cataract surgery BILATERAL History of colonoscopy History of coronary artery bypass graft [place] [place] [place] History of esophagogastroduodenoscopy History of partial colectomy SEP 2013 History of tooth extraction partial upper and lower dentures History of tubal ligation Hx of cholecystectomy Hx of varicose vein ligation and stripping S/P exploratory laparotomy 06/17/19 with lysis of adhesions Dr. Modesto Hernandez Family History Sister Family history of diabetes mellitus Mother Family history of diabetes mellitus Stroke Father Family history of diabetes mellitus Parkinsons disease Brother Family history of diabetes mellitus Prostate cancer Grandfather (Paternal) Family history of stomach cancer Other No family history of adverse response to anesthesia Denies family history of Ovarian cancer Breast cancer Lung cancer Colorectal cancer Social History Smoking Status: Never smoker Second Hand Exposure: No; Hx Alcohol Use: Yes Alcohol type: wine Alcohol Intake Frequency: Monthly or Less Hx Substance Use: No Preferred Language: Urdu Communication Ability: Effective Visual Impairment: No Limitations Hearing Ability: Normal Combat Systems Engineer Required: No Beliefs That Will Affect Care: None marital status: / marital status details: Lost spouse Dec 2021 Current Living Situation: Family Current Living Situation Comment: daughter current occupational status: retired Feels Safe at Home: Yes Childhood Exposure to Second-Hand Smoke: Yes Diet Comment: regular caffeine: Yes (coffee) during the past year weight has: remained stable Dental Care, Regularly: Yes Physical Activity Frequency: Other Seatbelt Use: always Sunscreen Use: Yes Assistive Devices: None Review of Systems Review of Systems: All systems reviewed & are unremarkable except as noted in HPI & below Physical Exam Constitutional: WD/WN, vitals as above Eyes: EOM intact bilaterally; no conjunctival abnormality ENMT: external ear and nose normal, oropharynx normal Neck: trachea midline, no thyromegaly normal visual inspection Respiratory: normal respiratory effort, lungs clear to auscultation no respiratory distress Cardiovascular: RRR, no murmur, no edema Gastrointestinal (Abdomen): Inspection/Auscultation: abdomen normal to inspection; abdomen not distended Musculoskeletal: no cyanosis or clubbing, extremities motor strength 5/5 Skin: no rashes, warm and dry Neurologic: moves all extremities and awake Psychiatric: Orientation: alert, oriented to person and cooperative Results & Data Results & Data ([facility]) Vital Signs (Past 12 Hours) Vital Signs Temp Pulse Resp BP Pulse Ox O2 Del Method 06/16/22 14:15 71 21 98 Room Air 06/16/22 14:15 167/89 H 06/16/22 14:00 68 22 97 Room Air 06/16/22 14:00 153/76 H 06/16/22 13:45 66 12 96 Room Air 06/16/22 13:30 66 20 99 Room Air 06/16/22 13:30 159/83 H 06/16/22 13:15 63 13 98 Room Air 06/16/22 13:00 69 14 98 Room Air 06/16/22 13:00 170/81 H 06/16/22 13:02 Room Air 06/16/22 12:56 36.5 C 73 19 189/81 H 99 Room Air PG Care Time/CCT Total # of Minutes Spent Total Time Spent with Patient: Total time spent is greater than 50% in coordination of care (as documented) at patient's floor/unit and/or counseling patient: Coding Level of Care Code 46288 Initial Inpt Care Lvl 3 Diagnoses Chest pain R07.9 Dizziness R42 Arteriosclerotic coronary artery disease I25.10 Type 2 diabetes mellitus E11.9 Diabetes mellitus complication status: without complication Diabetes mellitus long-term insulin use: unspecified termite technician insulin use status HTN (hypertension) I10 Hypertension type: unspecified Hypothyroidism E03.9 Seasonal allergies J30.2 DVT prophylaxis Z29.9 (1) Type 2 diabetes mellitus Diabetes mellitus complication status: without complication Diabetes mellitus long-term insulin use: unspecified long-term insulin use status Qualified Code(s): E11.9 - Type 2 diabetes mellitus without complications (2) HTN (hypertension) Hypertension type: unspecified Qualified Code(s): I10 - Essential (primary) hypertension
[2022-06-16] MEDS ORDERED: HEPARIN SODIUM/DEXTROSE 25,000 UNITS/500 ML BAG IV SCH ×2 (15:15→16:00)
[2022-06-16] MEDS ORDERED: MIDAZOLAM HCL 1 MG/ML 2ML VIAL ONE ×2 (15:24→17:05)
[2022-06-16] MEDS ORDERED: niCARdipine HCL INJ 2.5 MG/ML 10 ML AMP ONE (15:24)
[2022-06-16] MEDS ORDERED: fentaNYL citrate 100 MCG/2 ML VIAL ONE (15:24)
[2022-06-16] MEDS ORDERED: HEPARIN (PORCINE) 1000 UNIT/ML 10 ML (CATH LAB USE ONLY) ONE (15:24)
--- NOTE | 2022-06-16 15:37 | Cardiology Consultation ---
Date of Consultation June 16, 2022 Assessment & Plan (1) Chest pain: (2) Arteriosclerotic coronary artery disease: (3) Dizziness: Plan 1. Chest pain: Her chest pain is very worrisome as it is associated with electrocardiographic abnormalities, a slightly elevated initial troponin and significant wall motion abnormalities which are new over the last 2 years. I believe her symptoms are unstable angina associated with an acute infarction and I think she should go directly to the [facility]. I discussed this with her and she is agreeable, I also discussed her case with Dr. Lazo who will be doing the procedure. 2. Coronary disease: She has known coronary disease including bypass surgery in the past. 3. Dizziness: Her initial symptoms were dizziness or presyncope, perhaps she had an arrhythmia with the onset of ischemia but we have not identified an arrhythmia so far. She will be monitored during her hospitalization. History of Present Illness Reason for Consultation: Chest pain Requesting Physician: Dr. Cuba Attending Physician: Dr. Cuba History of Present Illness This is an 87-year-old woman, patient of Dr. Norton, who has a history of coronary artery disease as well as hypertension, hyperlipidemia. When last seen in the office July 02, 2021 she was doing well, however she was taking care of her terminal who has since and by her admission had been neglecting her health care or coming into the office. She has been troubled by left shoulder discomfort which she describes as occurring on and off and could be an anginal equivalent. This morning she had a presyncopal event which prompted the ambulance to bring her to the hospital, during the ambulance she had chest discomfort and was given nitroglycerin. The chest discomfort has continued and her initial troponin is 53. Her electrocardiogram in the am bulance shows a suggestion of J-point elevation V1 and V2 but little else, here her initial electrocardiogram is similar although that is different than 2020. A repeat electrocardiogram at 1506 shows what appears to be progressive anterior ST abnormalities in V1 through V3. She did have a dobutamine stress echo performed on July 04, 2020, the baseline echocardiogram showed normal left ventricular size and function and there was no ischemia. By contrast and echocardiogram done in the room today shows significant left ventricular dysfunction with inferior and anteroseptal wall motion abnormality based on my reading. Allergies Allergy/AdvReac Type Severity Reaction Status Date / Time ciprofloxacin [From Cipro] Allergy Mild nauseated Verified 06/16/22 14:54 furosemide [From Lasix] Allergy Unknown Unknown Verified 06/16/22 14:54 hydrochlorothiazide Allergy Unknown Unknown Verified 06/16/22 14:54 nitrofurantoin Allergy Unknown Unknown Verified 06/16/22 14:54 [From Macrobid] codeine AdvReac Severe CHEST PAIN Verified 06/16/22 14:54 felodipine [From Plendil] AdvReac Mild NON Verified 06/16/22 14:54 TOLERANT oxycodone [From Percocet] AdvReac Mild NON Verified 06/16/22 14:54 TOLERANT pravastatin [From Pravachol] AdvReac Mild MYALGIAS Verified 06/16/22 14:54 simvastatin [From Zocor] AdvReac Mild MYALGIAS Verified 06/16/22 14:54 Vcszcpi-LHD-EiU Reductase AdvReac Mild Muscle Verified 06/16/22 14:54 Inhibitor aches and [Rgxbrcq-Tcd-Ess Reductase cramping. Inhibitor] theophylline [From Silas-Dur] AdvReac Mild NON Verified 06/16/22 14:54 TOLERANT Home Medications Medication Instructions Recorded Confirmed Type lancets 26 gauge ([place] 1 #50 ea 04/27/19 03/11/22 History Lancets) aspirin 81 mg tablet,delayed 81 mg PO QAM 05/30/19 06/16/22 History release biotin 10 mg tablet 10 mg PO QAM 05/30/19 06/16/22 History cholecalciferol (vitamin D3) 125 5,000 units PO QAM 05/30/19 06/16/22 History mcg (5,000 unit) capsule nitroglycerin 0.4 mg sublingual 0.4 mg sublingual UD PRN Chest Pain 05/30/19 06/16/22 History tablet (Nitrostat) omeprazole 20 mg capsule,delayed 20 mg PO DAILY 12/13/19 06/16/22 History release calcium carb,cit ER 600 mg-vit D3 1 tab PO BID #60 tabs 01/16/20 06/16/22 Rx 12.5 mcg (500 unit) tablet,ext.rel (Citracal-D3 Slow Release) blood sugar diagnostic (Blood #100 ea 05/18/21 03/11/22 Rx Glucose Test) blood-glucose meter (Blood Glucose #1 ea 06/28/21 04/21/22 Rx Monitoring) ezetimibe 10 mg tablet 10 mg PO DAILY 07/02/21 06/16/22 History cetirizine 10 mg tablet (Zyrtec) 10 mg PO DAILY #30 tabs 11/26/21 06/16/22 Rx lisinopril 20 mg tablet 20 mg PO QAM #90 tabs 12/17/21 06/16/22 Rx oxybutynin chloride 5 mg 5 mg PO DAILY #30 tabs 02/17/22 06/16/22 Rx tablet,extended release 24 hr sertraline 25 mg tablet 25 mg PO DAILY #30 tabs 02/17/22 06/16/22 Rx Synthroid 100 mcg tablet 100 mcg PO DAILY #30 tabs 04/14/22 06/16/22 Rx (levothyroxine) Patient History Medical History Anxiety and depression Arteriosclerotic coronary artery disease Carotid artery plaque COVID-19 (06/2021) Dyslipidemia GERD (gastroesophageal reflux disease) History of anesthesia reaction after last colonoscopy 2015 @ [facility] pt became dizzy with chest tightness and HTN in recovery area--Dr. Pankaj Montano sent pt to the ER for further evaluation (see anesthesia note from procedure), pt states no further issues and was discharged home. 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 Osteoporosis Reactive airway disease SBO (small bowel obstruction) Scoliosis Seasonal allergies Spinal stenosis Type 2 diabetes mellitus Urinary incontinence Vitamin D deficiency Surgical History H/O hemorrhoidectomy History of appendectomy History of cataract surgery BILATERAL History of colonoscopy History of coronary artery bypass [place] [place] [place] of esophagogastroduodenoscopy History of partial colectomy SEP 2013 History of tooth extraction partial upper and lower dentures History of tubal ligation Hx of cholecystectomy Hx of varicose vein ligation and stripping S/P exploratory laparotomy 06/17/19 with lysis of adhesions Dr. Modesto Hernandez Family History Sister Family history of diabetes mellitus Mother Family history of diabetes mellitus Stroke Father Family history of diabetes mellitus Parkinsons disease Brother Family history of diabetes mellitus Prostate cancer Grandfather (Paternal) Family history of stomach cancer Other No family history of adverse response to anesthesia Denies family history of Ovarian cancer Breast cancer Lung cancer Colorectal cancer Social History Smoking Status: Never smoker Second Hand Exposure: No; Hx Alcohol Use: Yes Alcohol type: wine Alcohol Intake Frequency: Monthly or Less Hx Substance Use: No Preferred Language: Czech Communication Ability: Effective Visual Impairment: No Limitations Hearing Ability: Normal Visual Education Teacher Required: No Beliefs That Will Affect Care: None marital status: / marital status details: Lost spouse Dec 2021 Current Living Situation: Family Current Living Situation Comment: daughter current occupational status: retired Feels Safe at Home: Yes Childhood Exposure to Second-Hand Smoke: Yes Diet Comment: regular caffeine: Yes (coffee) during the past year weight has: remained stable Dental Care, Regularly: Yes Physical Activity Frequency: Other Seatbelt Use: always Sunscreen Use: Yes Assistive Devices: None Review of Systems Review of Systems: All systems reviewed & are unremarkable except as noted in HPI & below Physical Exam Physical Exam: Constitutional: Alert, cooperative and in no distress. HEENT: Unremarkable Neck: No jugular venous distention, carotid pulses are normal and equal bilaterally without bruits. Pulmonary: Rales on right and left on auscultation bilaterally, about senior living up. Cardiac: Regular rhythm with a grade 2/6 holosystolic murmur at the apex, no gallop or rub. Abdomen: Soft, nontender with normal bowel sounds. Extremities: No edema. Distal pulses intact. Neurologic: No focal findings. Gait was not tested. Skin: No rash, ecchymoses or petechiae. Results & Data ([facility]) Vital Signs (Past 12 Hours) Vital Signs Temp Pulse Resp BP Pulse Ox O2 Del Method 06/16/22 14:15 71 21 98 Room Air 06/16/22 14:15 167/89 H 06/16/22 14:00 68 22 97 Room Air 06/16/22 14:00 153/76 H 06/16/22 13:45 66 12 96 Room Air 06/16/22 13:30 66 20 99 Room Air 06/16/22 13:30 159/83 H 06/16/22 13:15 63 13 98 Room Air 06/16/22 13:00 69 14 98 Room Air 06/16/22 13:00 170/81 H 06/16/22 13:02 Room Air 06/16/22 12:56 36.5 C 73 19 189/81 H 99 Room Air Laboratory Results Cardiac Enzymes 06/16/22 Range/Units 12:45 AST 19 (13-39) U/L Troponin I High Sens 53.3 H* (0-14) pg/ml CBC 06/16/22 Range/Units 12:45 WBC 8.47 (4.8-10.8) K/ul RBC 4.53 (3.93-5.22) M/uL Hgb 13.5 (12.0-16.0) g/dl Hct 40.4 (34.1-44.9) % Plt Count 338 (130-400) K/uL Neut # (Auto) 4.83 (1.4-6.5) K/uL Lymph # (Auto) 2.78 (1.2-3.4) K/uL Bacon # (Auto) 0.73 (0.24-0.82) K/uL Eos # (Auto) 0.10 (0-0.50) K/uL Baso # (Auto) 0.02 (0-0.2) K/uL Comprehensive Metabolic Panel 06/16/22 Range/Units 12:45 Sodium 135 L (136-145) mmol/L Potassium 4.0 (3.5-5.1) mmol/L Chloride 101 (98-107) mmol/L Carbon Dioxide 23 (21-32) mmol/L BUN 16 (6-23) mg/dl Creatinine 0.72 (0.6-1.2) mg/dl Glucose 124 H (70-99(Fasting)) mg/dl Calcium 9.6 (8.5-10.1) mg/dl AST 19 (13-39) U/L ALT 12 (7-52) U/L Alkaline Phosphatase 62 (34-104) U/L Total Protein 6.8 (6.0-8.3) gm/dl Albumin 4.1 (3.4-5.0) gm/dl Intake and Output 06/16/22 06/16/22 06/16/22 06:59 14:59 22:59 Other: Weight 68.1 kg 68.1 kg Weight Measurement Method Chair Scale Built in [facility] Patient Weight 06/17/22 06:59 Weight 68.1 kg Diagnostic Findings Telemetry: Sinus rhythm, no significant arrhythmia PG Care Time/CCT Total # of Minutes Spent Total Time Spent with Patient: Total time spent is greater than 50% in coordination of care (as documented) at patient's floor/unit and/or counseling patient: Coding Level of Care Code 59440 Initial Inpt Care Lvl 3 Diagnoses Chest pain R07.9 Arteriosclerotic coronary artery disease I25.10 Dizziness R42
--- NOTE | 2022-06-16 15:47 | Pre Anesthesia Assessment ---
Date of Service June 16, 2022 Pre Sedation Assessment Vital Signs Temp Pulse Resp BP Pulse Ox O2 Del Method 06/16/22 15:15 64 17 97 Room Air 06/16/22 15:00 69 15 94 Room Air 06/16/22 15:00 148/76 H 06/16/22 14:45 70 16 96 Room Air 06/16/22 14:30 70 18 97 Room Air 06/16/22 14:30 160/76 H 06/16/22 14:15 71 21 98 Room Air 06/16/22 14:15 167/89 H 06/16/22 14:00 68 22 97 Room Air 06/16/22 14:00 153/76 H 06/16/22 13:45 66 12 96 Room Air 06/16/22 13:30 66 20 99 Room Air 06/16/22 13:30 159/83 H 06/16/22 13:15 63 13 98 Room Air 06/16/22 13:00 69 14 98 Room Air 06/16/22 13:00 170/81 H 06/16/22 13:02 Room Air 06/16/22 12:56 97.7 F 73 19 189/81 H 99 Room Air Cardiovascular RRR, no murmur, no edema Respiratory normal respiratory effort, lungs clear to auscultation Pre-Sedation Airway Assessment Smoking Status: Never smoker ASA: ASA3 Procedure Planning Contraindications for Sedation: none Current Medications Reviewed: Yes Notes The planned sedation has been discussed with the patient. Informed Consent was obtained. I have identified the patient, determined the appropriateness of sedation and have assessed the patient immediately prior to the procedure. All medicine(s) and interventions are by my order.
--- NOTE | 2022-06-16 16:02 | Electrocardiogram Report ---
Test Reason : Blood Pressure : / mmHG Vent. Rate : 061 BPM Atrial Rate : 061 BPM P-R Int : 186 ms QRS Dur : 086 ms QT Int : 410 ms P-R-T Axes : 065 064 066 degrees QTc Int : 412 ms Normal sinus rhythm Septal infarct , possibly acute Abnormal ECG When compared with ECG of 17-JUN-2019 07:07, Septal J point elevation is more pronounced now Confirmed by Rubens Soriano ([id number]) on 06/16/2022 4:02:00 PM Referred By: REFERRED SELF Confirmed By:Rubens Soriano
--- NOTE | 2022-06-16 16:10 | Electrocardiogram Report ---
Test Reason : Blood Pressure : / mmHG Vent. Rate : 062 BPM Atrial Rate : 062 BPM P-R Int : 174 ms QRS Dur : 086 ms QT Int : 418 ms P-R-T Axes : 048 023 083 degrees QTc Int : 424 ms Normal sinus rhythm Probable evolving septal infarction Abnormal ECG When compared with ECG of 16-JUN-2022 12:44, (unconfirmed) Nonspecific T wave abnormality now evident in Lateral leads Confirmed by Rubens Soriano ([id number]) on 06/16/2022 4:10:00 PM Referred By: REFERRED SELF Confirmed By:Rubens Soriano
--- NOTE | 2022-06-16 16:38 | Post Anesthesia Assessment ---
Date of Service June 16, 2022 Post Sedation Assessment Vital Signs Temp Pulse Resp BP Pulse Ox O2 Del Method 06/16/22 15:15 64 17 97 Room Air 06/16/22 15:00 69 15 94 Room Air 06/16/22 15:00 148/76 H 06/16/22 14:45 70 16 96 Room Air 06/16/22 14:30 70 18 97 Room Air 06/16/22 14:30 160/76 H 06/16/22 14:15 71 21 98 Room Air 06/16/22 14:15 167/89 H 06/16/22 14:00 68 22 97 Room Air 06/16/22 14:00 153/76 H 06/16/22 13:45 66 12 96 Room Air 06/16/22 13:30 66 20 99 Room Air 06/16/22 13:30 159/83 H 06/16/22 13:15 63 13 98 Room Air 06/16/22 13:00 69 14 98 Room Air 06/16/22 13:00 170/81 H 06/16/22 13:02 Room Air 06/16/22 12:56 97.7 F 73 19 189/81 H 99 Room Air Recovery Score Activity: Moves 4 extremities Respiration: Deep Breath/Cough Circulation: +/-20% PreAnes Value Consciousness: Fully Awake Oxygen Saturation: > 92% On Room Air Discharge Sedation Level of Care: Fast Track Phase II Post Sedation Plan On clinical assessment, the patient appears to have tolerated the sedation without complications. Patient is recovering as anticipated. Patient will continue to be monitored by nursing and may be discharged when sedation discharge criteria are met per below protocol. Upon Completions of procedure up to 15 minutes continue every 5 minute vital signs and the P.A.R. score; then discharge to a Phase I or Fast Track to Phase II per the following guidelines: * Discharge Patient to appropriate Phase II area if PAR is 8 or greater or return to pre- procedure baseline. The post - procedure orders will be as directed. * If PAR score is less than 8 or not return to pre-procedure baseline then patient will follow Phase I monitoring till PAR is reached for Phase II. The Phase I may be done in procedure room or may call to secure a Phase I area. * If naloxone or flumazenil are used for reversal, hold in Phase I for continued monitoring from when last reversal dose was given for a minimum of 60 minutes or longer pending the nurse and/or physician discretion of patient condition before discharge to Phase II. Please call the Sedation Physician to re-evaluate and complete post-note for discharge to Phase II area. Do NOT discharge from procedure sedation or Phase 1 until post- sedation evaluation note is complete by procedure /sedation MD Sedation Discharge Instructions to be given to the patient at discharge to home.
--- NOTE | 2022-06-16 16:39 | Emergency Department Note ---
Impression & Plan Left-sided chest pain, Elevated troponin I level ED Provider Note INFORMANT: Patient ED PROVIDER(S): Sanchez Will MD CHIEF COMPLAINT: Chest pain PLAN: Disposition: Admitted Condition: Good Outpatient prescription management: none Referral: None patient presented to Emergency Department complaining of feeling generally ill and having chest pain. A work-up was initiated. Prehospital and MEDICAL DECISION MAKING: ED ECG did not reveal any acute ST elevation. The patient had an unremarkable CBC and chemistry panel. Her troponin was mildly positive. In light of her chest pain and cardiac history this is concerning for ACS. Patient had received aspirin prehospital. She was given sublingual nitroglycerin and nitroglycerin paste. I did consult with Dr. Cuba of internal medicine. The patient was promptly evaluated in the ER and admitted for further management. Triage Nursing notes reviewed and agree them. Vital Signs: reviewed and remarkable for mild hypertension Differential diagnosis: Cardiac ischemia, aortic dissection, pulmonary embolism, pneumothorax, pneumonia, pericarditis, myocarditis, esophageal rupture, GERD, cholecystitis, pancreatitis, musculoskeletal, as well as other pathologies. Diagnostics interpreted by me: ECG: Twelve-lead ECG reveals normal sinus rhythm 61 bpm. There is septal Q waves. No ST elevation or depression. No PACs or PVCs. Cardiac Monitoring: Cardiac monitoring ordered by me: The patient was placed on continuous cardiac monitoring and observed. It revealed a normal sinus rhythm at 64 beats per minute without ectopy or evidence of dysrhythmia. Imaging studies: Chest x-ray. Findings: A chest x-ray was performed and revealed no pneumothorax, effusion, infiltrate, pulmonary edema, free air under the diaphragm, or wide mediastinum. Impression: No acute disease. HPI: The patient is a 87 year old female who presents to the Emergency Room with complaints of chest pain. This started this and is persisting. She does note it radiates towards the left arm. The patient also notes the following associated symptoms, feeling dizzy and generally ill. She has some mild nausea. The patient has been given aspirin by EMS for relieving factors. Current pain is rated as 5/10. Pt denies LOC, headache, fevers, chills, diaphoresis, visual changes, neck pain, breathing difficulties, vomiting, abdominal pain, back pain, melena, hematochezia, urinary symptoms, numbness, weakness, lymphadenopathy, rash, or other complaints. ROS: See above HPI for pertinent positives & negatives. A total of 10 systems reviewed and were otherwise negative. PAST MEDICAL HISTORY:See Below , CAD PAST SURGICAL HISTORY:See Below, FAMILY HISTORY:See Below SOCIAL HISTORY:See Below, retired HOME MEDICATIONS:See Below ALLERGIES:See Below VITALS:See Below PHYSICAL EXAMINATION: GENERAL: Awake, alert, well-appearing, in no distress HENT: Normocephalic, atraumatic. Oropharynx unremarkable. EYES: Normal conjunctiva. Sclera non-icteric. NECK: Inspection normal. Non-tender. Supple. No nuchal rigidity. FROM. No masses. RESPIRATORY: Clear to auscultation. No wheezes. No rales. Normal respiratory effort. CARDIAC: Normal rate. Normal rhythm. No murmurs. No rubs. Extremities warm and well perfused. Pulses equal. No JVD. GI: Soft, non-distended. No tenderness to palpation. No rebound or guarding. No masses. RECTAL: Deferred. MUSCULOSKELETAL: Atraumatic. Chest examination reveals mild parasternal tenderness. The back is symmetrical on inspection without obvious abnormality. There is no CVA tenderness to palpation. No joint edema. LOWER EXTREMITIES: Calves are equal size bilaterally and non-tender. No edema. No discoloration. NEURO: Normal sensorium. No sensory or motor deficits noted. SKIN: No rash or jaundice noted. Sanchez Will MD Past Med/Surg History Medical History Anxiety and depression Arteriosclerotic coronary artery disease Carotid artery plaque COVID-19 (06/2021) Dyslipidemia GERD (gastroesophageal reflux disease) History of anesthesia reaction after last colonoscopy 2016 @ [facility] pt became dizzy with chest tightness and HTN in recovery area--Dr. Pankaj Montano sent pt to the ER for further evaluation (see anesthesia note from procedure), pt states no further issues and was discharged home. 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 Osteoporosis Reactive airway disease SBO (small bowel obstruction) Scoliosis Seasonal allergies Spinal stenosis Type 2 diabetes mellitus Urinary incontinence Vitamin D deficiency Surgical History H/O hemorrhoidectomy History of appendectomy History of cataract surgery BILATERAL History of colonoscopy History of coronary artery bypass graft 2000-TRIPLE BYPASS @[facility] – [place] History of esophagogastroduodenoscopy History of partial colectomy SEP 2013 History of tooth extraction partial upper and lower dentures History of tubal ligation Hx of cholecystectomy Hx of varicose vein ligation and stripping S/P exploratory laparotomy 06/17/19 with lysis of adhesions Dr. Modesto Hernandez Family History Sister Family history of diabetes mellitus Mother Family history of diabetes mellitus Stroke Father Family history of diabetes mellitus Parkinsons disease Brother Family history of diabetes mellitus Prostate cancer Grandfather (Paternal) Family history of stomach cancer Other No family history of adverse response to anesthesia Denies family history of Ovarian cancer Breast cancer Lung cancer Colorectal cancer Social History Smoking Status: Never smoker Second Hand Exposure: No; Hx Alcohol Use: Yes Alcohol type: wine Alcohol Intake Frequency: Monthly or Less Hx Substance Use: No Preferred Language: German Communication Ability: Effective Visual Impairment: No Limitations Hearing Ability: Normal Food Service Utility Worker Required: No Beliefs That Will Affect Care: None marital status: / marital status details: Lost spouse Dec 2021 Current Living Situation: Family Current Living Situation Comment: daughter current occupational status: retired Feels Safe at Home: Yes Childhood Exposure to Second-Hand Smoke: Yes Diet Comment: regular caffeine: Yes (coffee) during the past year weight has: remained stable Dental Care, Regularly: Yes Physical Activity Frequency: Other Seatbelt Use: always Sunscreen Use: Yes Assistive Devices: None Allergies Allergies Allergy/AdvReac Type Severity Reaction Status Date / Time ciprofloxacin [From Cipro] Allergy Mild nauseated Verified 06/16/22 14:54 furosemide [From Lasix] Allergy Unknown Unknown Verified 06/16/22 14:54 hydrochlorothiazide Allergy Unknown Unknown Verified 06/16/22 14:54 nitrofurantoin Allergy Unknown Unknown Verified 06/16/22 14:54 [From Macrobid] codeine AdvReac Severe CHEST PAIN Verified 06/16/22 14:54 felodipine [From Plendil] AdvReac Mild NON Verified 06/16/22 14:54 TOLERANT oxycodone [From Percocet] AdvReac Mild NON Verified 06/16/22 14:54 TOLERANT pravastatin [From Pravachol] AdvReac Mild MYALGIAS Verified 06/16/22 14:54 simvastatin [From Zocor] AdvReac Mild MYALGIAS Verified 06/16/22 14:54 [id number]-[id number] Reductase AdvReac Mild Muscle Verified 06/16/22 14:54 Inhibitor aches and [Chtkxko-[id number] Reductase cramping. Inhibitor] theophylline [From Silas-Dur] AdvReac Mild NON Verified 06/16/22 14:54 TOLERANT Home Meds Home Medications Medication Instructions Recorded Confirmed lancets 26 gauge (Payne 1 #50 ea 04/27/19 03/11/22 Lancets) aspirin 81 mg tablet,delayed 81 mg PO QAM 05/30/19 06/16/22 release biotin 10 mg tablet 10 mg PO QAM 05/30/19 06/16/22 cholecalciferol (vitamin D3) 125 5,000 units PO QAM 05/30/19 06/16/22 mcg (5,000 unit) capsule nitroglycerin 0.4 mg sublingual 0.4 mg sublingual UD PRN Chest Pain 05/30/19 06/16/22 tablet (Nitrostat) omeprazole 20 mg capsule,delayed 20 mg PO DAILY 12/13/19 06/16/22 release ezetimibe 10 mg tablet 10 mg PO DAILY 07/02/21 06/16/22 Previous Rx's Medication Instructions Recorded calcium carb,cit ER 600 mg-vit D3 1 tab PO BID #60 tabs 01/16/20 12.5 mcg (500 unit) tablet,ext.rel (Citracal-D3 Slow Release) blood sugar diagnostic (Blood #100 ea 05/18/21 Glucose Test) blood-glucose meter (Blood Glucose #1 ea 05/18/21 Monitoring) cetirizine 10 mg tablet (Zyrtec) 10 mg PO DAILY #30 tabs 11/26/21 lisinopril 20 mg tablet 20 mg PO QAM #90 tabs 12/17/21 oxybutynin chloride 5 mg 5 mg PO DAILY #30 tabs 02/17/22 tablet,extended release 24 hr sertraline 25 mg tablet 25 mg PO DAILY #30 tabs 02/17/22 Synthroid 100 mcg tablet 100 mcg PO DAILY #30 tabs 04/14/22 (levothyroxine) Results & Data (ED) Vital Signs Vital Signs - 24 hr 06/16/22 12:56 06/16/22 13:02 06/16/22 13:00 Temperature 36.5 C Temperature Source Oral Pulse Rate 73 Pulse Rate from SpO2 Sensor Respiratory Rate 19 Blood Pressure 189/81 H 170/81 H Blood Pressure Mean 117 110 Blood Pressure Position Lying Pulse Oximetry 99 Oxygen Delivery Method Room Air Room Air Sepsis Recent Fever Within 48 Hours No Sepsis New/Unexplained Change in Mental Status No Sepsis Action Taken by Nursing No Action Required 06/16/22 13:00 06/16/22 13:15 06/16/22 13:30 Temperature Temperature Source Pulse Rate 69 63 Pulse Rate from SpO2 Sensor 72 62 Respiratory Rate 14 13 Blood Pressure 159/83 H Blood Pressure Mean 108 Blood Pressure Position Pulse Oximetry 98 98 Oxygen Delivery Method Room Air Room Air Sepsis Recent Fever Within 48 Hours Sepsis New/Unexplained Change in Mental Status Sepsis Action Taken by Nursing 06/16/22 13:30 06/16/22 13:45 06/16/22 14:00 Temperature Temperature Source Pulse Rate 66 66 Pulse Rate from SpO2 Sensor 68 67 Respiratory Rate 20 12 Blood Pressure 153/76 H Blood Pressure Mean 101 Blood Pressure Position Pulse Oximetry 99 96 Oxygen Delivery Method Room Air Room Air Sepsis Recent Fever Within 48 Hours Sepsis New/Unexplained Change in Mental Status Sepsis Action Taken by Nursing 06/16/22 14:00 06/16/22 14:15 06/16/22 14:15 Temperature Temperature Source Pulse Rate 68 71 Pulse Rate from SpO2 Sensor 69 71 Respiratory Rate 22 21 Blood Pressure 167/89 H Blood Pressure Mean 115 Blood Pressure Position Pulse Oximetry 97 98 Oxygen Delivery Method Room Air Room Air Sepsis Recent Fever Within 48 Hours Sepsis New/Unexplained Change in Mental Status Sepsis Action Taken by Nursing 06/16/22 14:30 06/16/22 14:30 06/16/22 14:45 Temperature Temperature Source Pulse Rate 70 70 Pulse Rate from SpO2 Sensor 72 70 Respiratory Rate 18 16 Blood Pressure 160/76 H Blood Pressure Mean 104 Blood Pressure Position Pulse Oximetry 97 96 Oxygen Delivery Method Room Air Room Air Sepsis Recent Fever Within 48 Hours Sepsis New/Unexplained Change in Mental Status Sepsis Action Taken by Nursing 06/16/22 15:00 06/16/22 15:00 06/16/22 15:15 Temperature Temperature Source Pulse Rate 69 64 Pulse Rate from SpO2 Sensor 70 64 Respiratory Rate 15 17 Blood Pressure 148/76 H Blood Pressure Mean 100 Blood Pressure Position Pulse Oximetry 94 97 Oxygen Delivery Method Room Air Room Air Sepsis Recent Fever Within 48 Hours Sepsis New/Unexplained Change in Mental Status Sepsis Action Taken by Nursing Laboratory Data Result diagrams: 06/16/22 12:45 06/16/22 12:45 Lab Results 06/16/22 06/16/22 06/16/22 Range/Units 12:45 12:45 12:45 WBC 8.47 (4.8-10.8) K/ul RBC 4.53 (3.93-5.22) M/uL Hgb 13.5 (12.0-16.0) g/dl Hct 40.4 (34.1-44.9) % MCV 89.2 (80.0-100.0) fL MCH 29.8 (25.0-34.0) pg MCHC 33.4 (32.0-36.0) g/dL RDW Std Deviation 44.3 (36.4-46.3) fL RDW Coeff of Becky 13.5 (11.5-14.5) % Plt Count 338 (130-400) K/uL MPV 8.8 L (9.4-12.3) fL Immature Gran % (Auto) 0.1 % Neut % (Auto) 57.1 % Lymph % (Auto) 32.8 % [place] % (Auto) 8.6 % Eos % (Auto) 1.2 % Baso % (Auto) 0.2 % Neut # (Auto) 4.83 (1.4-6.5) K/uL Lymph # (Auto) 2.78 (1.2-3.4) K/uL [place] # (Auto) 0.73 (0.24-0.82) K/uL Eos # (Auto) 0.10 (0-0.50) K/uL Baso # (Auto) 0.02 (0-0.2) K/uL Immature Gran # (Auto) 0.01 (0.00-0.02) K/uL Sodium 135 L (136-145) mmol/L Potassium 4.0 (3.5-5.1) mmol/L Chloride 101 (98-107) mmol/L Carbon Dioxide 23 (21-32) mmol/L Anion Gap 11 (3-11) BUN 16 (6-23) mg/dl Creatinine 0.72 (0.6-1.2) mg/dl Est Cr Clr Drug Dosing Not Reportable Est GFR ( Amer) 88.5 ml/min Est GFR (Non-Af Amer) 76.4 ml/min BUN/Creatinine Ratio 22.2 H (10-20) Glucose 124 H (70-99(Fasting)) mg/dl Calcium 9.6 (8.5-10.1) mg/dl Magnesium 1.7 (1.7-2.4) mg/dl Total Bilirubin 0.8 (0.2-1.0) mg/dl AST 19 (13-39) U/L ALT 12 (7-52) U/L Alkaline Phosphatase 62 (34-104) U/L Troponin I High Sens 53.3 H* (0-14) pg/ml Total Protein 6.8 (6.0-8.3) gm/dl Albumin 4.1 (3.4-5.0) gm/dl Globulin 2.7 (2.5-4.0) gm/dl Albumin/Globulin Ratio 1.5 (0.9-2) TSH 0.093 L (0.300-4.500) uIu/ml Free T4 1.81 H (0.61-1.60) ng/dl SARS-CoV-2, RNA, NAAT (NEGATIVE) 06/16/22 Range/Units 14:15 WBC (4.8-10.8) K/ul RBC (3.93-5.22) M/uL Hgb (12.0-16.0) g/dl Hct (34.1-44.9) % MCV (80.0-100.0) fL MCH (25.0-34.0) pg MCHC (32.0-36.0) g/dL RDW Std Deviation (36.4-46.3) fL RDW Coeff of Becky (11.5-14.5) % Plt Count (130-400) K/uL MPV (9.4-12.3) fL Immature Gran % (Auto) % Neut % (Auto) % Lymph % (Auto) % [place] % (Auto) % Eos % (Auto) % Baso % (Auto) % Neut # (Auto) (1.4-6.5) K/uL Lymph # (Auto) (1.2-3.4) K/uL [place] # (Auto) (0.24-0.82) K/uL Eos # (Auto) (0-0.50) K/uL Baso # (Auto) (0-0.2) K/uL Immature Gran # (Auto) (0.00-0.02) K/uL Sodium (136-145) mmol/L Potassium (3.5-5.1) mmol/L Chloride (98-107) mmol/L Carbon Dioxide (21-32) mmol/L Anion Gap (3-11) BUN (6-23) mg/dl Creatinine (0.6-1.2) mg/dl Est Cr Clr Drug Dosing Est GFR ( Amer) ml/min Est GFR (Non-Af Amer) ml/min BUN/Creatinine Ratio (10-20) Glucose (70-99(Fasting)) mg/dl Calcium (8.5-10.1) mg/dl Magnesium (1.7-2.4) mg/dl Total Bilirubin (0.2-1.0) mg/dl AST (13-39) U/L ALT (7-52) U/L Alkaline Phosphatase (34-104) U/L Troponin I High Sens (0-14) pg/ml Total Protein (6.0-8.3) gm/dl Albumin (3.4-5.0) gm/dl Globulin (2.5-4.0) gm/dl Albumin/Globulin Ratio (0.9-2) TSH (0.300-4.500) uIu/ml Free T4 (0.61-1.60) ng/dl SARS-CoV-2, RNA, NAAT NEGATIVE (NEGATIVE) Administered Medications Discontinued Medications Fentanyl Citrate (Fentanyl Citrate 100 Mcg/2 Ml Vial) Confirm Administered Dose 100 mcg .ROUTE .[facility]Ener[facility].it ONE Stop: 06/16/22 15:25 Last Admin: 06/16/22 16:22 Dose: 50 mcg Documented By: COSMO Heparin Sodium (Porcine) (Heparin (Porcine) 1000 Unit/Ml 10 Ml (Celery Tier Use Only)) Confirm Administered Dose 10,000 units .ROUTE .STCardMunch-MED ONE Stop: 06/16/22 15:25 Last Admin: 06/16/22 16:22 Dose: 5,000 units Documented By: COSMO Midazolam HCl (Midazolam Hcl 1 Mg/Ml 2ml Vial) Confirm Administered Dose 2 mg .ROUTE .STK-MED ONE Stop: 06/16/22 15:25 Last Admin: 06/16/22 16:22 Dose: 1 mg Documented By: COSMO Nicardipine HCl (Nicardipine Hcl Inj 2.5 Mg/Ml 10 Ml Amp) Confirm Administered Dose 25 mg .ROUTE .STK-MED ONE Stop: 06/16/22 15:25 Last Admin: 06/16/22 16:22 Dose: 25 mg Documented By: NIDHI Nitroglycerin (Nitroglycerin 2% Ointment 30gm Tube) 0.5 inch EXT NOW STA Stop: 06/16/22 13:50 Last Admin: 06/16/22 14:06 Dose: 0.5 inch Documented By: CLARE Nitroglycerin (Nitroglycerin Sl 0.4 Mg/Tab Tab) 0.4 mg SL NOW STA Stop: 06/16/22 13:50 Last Admin: 06/16/22 14:06 Dose: 0.4 mg Documented By: CLARE Nitroglycerin (Nitroglycerin Sl 0.4 Mg/Tab Tab) 0.4 mg SL NOW STA Stop: 06/16/22 15:11 Last Admin: 06/16/22 15:12 Dose: 0.4 mg Documented By: CLARE Imaging Data Radiologist's Impression: Chest X-Ray 06/16/22 12:57 XR chest 1V portable CLINICAL HISTORY: weakness. Chest tightness COMPARISON STUDY: 07/11/2021 TECHNIQUE: 1 view of the chest FINDINGS: Single frontal view of the chest demonstrates the cardiomediastinal silhouette to be within normal limits. The patient is status post previous cardiothoracic surgery. The lungs are clear of alveolar opacities. There is no evidence for pleural effusion. There is no evidence for vascular congestion. There is no acute osseous pathology. IMPRESSION: 1. No acute cardiopulmonary disease. ACT 112: Negative or not required by law. Electronically signed by: Pavel Conte M.D. 06/16/2022 1:27 PM Discharge Plan Visit Data Chief Complaint: Illness Stated Complaint: DIZZINESS, UNSTEADY GAIT, CHEST PAIN ED Provider: Sanchez Will Discharge Problem: Left-sided chest pain, Elevated troponin I level Discharge Instructions Interventions: ED Discharge Assessment Last Done: 06/16/22 15:25
--- NOTE | 2022-06-16 16:40 | Cardiac Catheterization ---
[facility] Data: Gradall Operator Cardiac Status Clinical evaluation leading to the procedure CAD Presenation: STEMI Anginal Classification: CCS IV Diagnostic Physicians Name: Fidel Lazo MD Closure Device Recommendations: Medical Therapy and/or Counseling Cardiac Cath Procedure Full Procedure Date June 16, 2022 Pre-Procedure Diagnosis Pre-Procedure Diagnosis: Non STEMI AUC Score AUC Score: 8 Post-Procedure Diagnosis Post-Procedure Diagnosis: Severe CAD and Elevated Intracardiac Pressures Procedure(s) Performed Procedure(s) Performed: Coronary Angiography, Left Heart Cath and Bypass Graft Angiography Business Services Officer Fidel Lazo MD Usability Specialist(s) Yarn Dyer Estimated Blood Loss Estimated Blood Loss: 10 Medication(s) Medication(s): Fentanyl, Heparin, Lidocaine 1%, Nicardipine, Nitroglycerin and Versed Summary of Findings Indication: NSTEMI. History of coronary disease post three-vessel CABG (BAIRD to LAD, SVG to ramus, SVG to diagonal). Access: 6 Fr left radial artery Catheters: JL 3.5, JR4, SHANNON, pigtail Findings: LM -normal caliber, no significant disease LAD -medium caliber, 50 to 60% earlymid stenosis at takeoff of first septal/diagonal. Remainder of vessel widely patent. 40% ostial D1 Circumflex -medium caliber, 20 to 30% mid segment stenosis. Ramus/high FM4whayr, 60 to 70% stenosis after prior vein graft anastomosis RCA -dominant, large caliber vessel, luminal irregularities BAIRD to LADsmall/atretic but patent to LAD SVG to diagonallarge caliber graft, widely patent. Retrofills into mid LAD SVG to ramusoccluded LVEDP -26 Arterial Closure: TR band Summary: 1. Chronic multivessel coronary artery disease -60% earlymid LAD. 40% ostial D1 70% distal small ramus 20 to 30% mid circumflex 2. BAIRD to LADsmall vessel, patent 3. SVG to diagonallarge caliber, widely patent, retrofills LAD 4. SVG to ramusoccluded 5. Elevated intracardiac filling pressure Recommendations: No acute high risk CAD. Findings most consistent with stress-induced cardiomyopathy Start guideline directed medical therapy for cardiomyopathy. Pain control, diuretics as necessary Hemodynamics Rest Ao:: 123/59/91 Final Ao: 144/65/85 LV: 147/27 Recommendations Recommendations: Medical Therapy and/or Counseling Specimens Specimens: None Radiation Exposure (mGy) 1000 Contrast (mls) 90 Drains Drains: none Anesthesia moderate [id number] Procedural Complication(s) None Disposition PCU I attest to the content of the Intraoperative Record and any orders documented therein. Any exceptions are noted below. [facility] Card Cath Procedure Codes Cardiac Catheterization Procedure 1: Cardiovascular Cath Procedures: 98830 Coronaries & LHC (+/-LV) & Grafts/IM (arterial & venous) Moderate Sedation Procedure 1: Sedation/Anesthesia: 49045 Mod Sedation by the same physician;Init15 Min Child Age 5 & Up Procedure 2: Sedation/Anesthesia: 80060 Mod Sedation by the same physician; Ea [id number] Minutes PG Care Time/CCT Total # of Minutes Spent Total Time Spent with Patient: Total time spent is greater than 50% in coordination of care (as documented) at patient's floor/unit and/or counseling patient:
[2022-06-16] MEDS ORDERED: GLUCOSE 10 TAB/TUBE PO PRN (16:51)
[2022-06-16] MEDS ORDERED: GLUCAGON FOR INJ 1 MG VIAL SQ PRN (16:51)
[2022-06-16] MEDS ORDERED: DEXTROSE 50% 50 ML SYRINGE IV PRN (16:51)
[2022-06-16] MEDS ORDERED: CARBOHYDRATES FOR HYPOGLYCEMIA PO PRN (16:51)
[2022-06-16] MEDS ORDERED: GLUCOSE 40% GEL 15 GM TUBE PO PRN (16:51)
[2022-06-16] MEDS ORDERED: ONDANSETRON INJ 2 MG/ML 2 ML VIAL IV PRN (16:51)
[2022-06-16] MEDS: INSULIN ASPART PER UNIT SC SCH ×2 (18:43→20:36)
--- NOTE | 2022-06-16 18:58 | XCELERA ---
[id number]
[2022-06-16] MEDS: ACETAMINOPHEN 325 MG TAB PO PRN (20:45)
[2022-06-16] MEDS ORDERED: LORazepam 0.5 MG TAB PO PRN (20:46)
[2022-06-16] MEDS ORDERED: METOPROLOL TARTRATE 25 MG TAB PO SCH (21:00)
[2022-06-16] MEDS: LIDOCAINE 5% 1 PATCH TD SCH (21:48)
[2022-06-17] MEDS ORDERED: LEVOTHYROXINE SODIUM 100 MCG TABLET PO SCH (06:30)
[2022-06-17 07:06] LABS: Hemoglobin 12.4 g/dl (12.0-16.0); Mean Corpuscular Hemoglobin 30.3 pg (25.0-34.0); Mean Corpuscular Hgb Conc 34.4 g/dL (32.0-36.0); Mean Platelet Volume 8.8 fL (9.4-12.3); Platelet Count 293 K/uL (130-400); RDW Coefficient of Variation 13.8 % (11.5-14.5); RDW Standard Deviation 44.5 fL (36.4-46.3); Red Blood Count 4.09 M/uL (3.93-5.22)
[2022-06-17 07:32] LABS: BUN Creatinine Ratio 19.7 (10-20); Calcium 8.5 mg/dl (8.5-10.1); Creatinine Clr Calc Pharmacy 57.5 ml/min; Est GFR (African American) 95.8 ml/min; Est GFR (Non-African American) 82.7 ml/min; Magnesium 1.7 mg/dl (1.7-2.4); Potassium 3.7 mmol/L (3.5-5.1)
[2022-06-17 07:59] LABS: Estimated Average Glucose 128 mg/dl; Hemoglobin A1C 6.1 % (4.5-5.6)
[2022-06-17] MEDS ORDERED: POTASSIUM CHLORIDE CRTAB 20 MEQ TABCR PO STA (08:36)
[2022-06-17] MEDS ORDERED: MAGNESIUM SULFATE / D5W 1 GM/100 ML BAG IV ONE (08:45)
[2022-06-17] MEDS: INSULIN ASPART PER UNIT SC SCH ×4 (08:56→21:21)
[2022-06-17] MEDS: PANTOprazole 40 MG TAB PO SCH (08:57)
[2022-06-17] MEDS: EZETIMIBE 10 MG TABLET PO SCH (08:57)
[2022-06-17] MEDS: ASPIRIN 81 MG ECTAB PO SCH (08:57)
[2022-06-17] MEDS: METOPROLOL SUCC 25MG EXT REL TAB PO SCH (08:57)
[2022-06-17] MEDS: CETIRIZINE HCL 10 MG TABLET PO SCH (08:58)
[2022-06-17] MEDS: OXYBUTYNIN CHLORIDE XL 5 MG TABCR PO SCH (08:58)
[2022-06-17] MEDS: SERTRALINE HCL 50 MG TABLET PO SCH (08:58)
[2022-06-17] MEDS ORDERED: lisinopril 20 MG TAB PO SCH (09:00)
[2022-06-17] MEDS: ACETAMINOPHEN 325 MG TAB PO PRN (09:47)
--- NOTE | 2022-06-17 10:49 | Hospitalist Progress Note ---
Date of Service June 17, 2022 Assessment & Plan (1) Stress-induced cardiomyopathy: Plan: Presented with dizziness followed by acute onset chest pain with radiation to left shoulder in ambulance on way to ER. Initial troponin was drawn only 15 minutes after onset of chest pain and was 53 and ECG initially with septal J- point elevation versus possible acute septal infarct. Subsequent troponin went up to 4224 and repeat ECG showed probable evolving septal infarction She was treated initially with aspirin, nitroglycerin, heparin drip, and started on metoprolol. Cardiology was consulted and she went for urgent cardiac catheterization after echocardiogram showed LVEF 35-40% with apical akinesis with severe hypokinesis to akinesis in the mid segment sparing the lateral wall, and mild concentric LVH with sigmoid septum, otherwise normal Cardiac catheterization showed chronic multivessel CAD, but no acute high risk CAD. Findings were most consistent with stress-induced cardiomyopathy. Troponin trended back downward She has had no further chest pain. Still complains of fatigue -Given dizziness, work-up for stroke ensued as below -No evidence of acute decompensation of heart failure-no need for diuretics -No evidence of cardiogenic shock or mention of LVOT obstruction -Start Toprol-XL 25 Mg p.o. once daily -continue home lisinopril 20 mg daily-ordered for tomorrow. Given that this will most likely be a transient cardiomyopathy, Entresto not needed -Monitor on telemetry for arrhythmia-none so far, but has been complaining of palpitations prior to admission -Appreciate cardiology management-we will need outpatient follow-up with echocardiogram repeated in the near future -Follow CBC, BMP, magnesium in the morning (2) Acute CVA (cerebrovascular accident): Plan: Given ongoing dizziness that preceded her chest pain event, and also description of possible amaurosis fugax, proceeded to get MRI of the brain MRI of the brain showing 6 mm left frontal lobe centrum semiovale acute versus subacute lacunar infarct Unclear if this tiny infarct is the cause of her dizziness, or is simply an incidental finding, however we will proceed with secondary stroke work-up -Check carotid Doppler -Echocardiogram already checked as above without thrombus -Continue to monitor for occult atrial fibrillation/flutter on telemetry and consider 30-day event monitor after discharge -Hemoglobin A1c in the prediabetes range at 6.1% -Check lipid panel in the morning -Add on SCDs and Lovenox for DVT prophylaxis -She is completely intolerant to all statins, but given concurrent history of CAD, consideration could be given to PCSK9 inhibitors-defer as outpatient -Neurochecks -Neurology consult appreciated -We will add Plavix to her aspirin and plan for 3 weeks of DAPT followed by discontinuation of aspirin in favor of Plavix monotherapy -PT/OT consults placed given ongoing dizziness (3) Urinary frequency: Plan: Has a history of overactive bladder and is on oxybutynin, however she feels it is worse than usual Check UA and reflexive urine culture if needed (4) Dizziness: Plan: Had fairly acute onset of dizziness prior to chest pain starting. Also c/o some intermittent black spots and at times feels like a curtain being drawn down over her eyes over the last few weeks. No headache, slurred speech, weakness, but did have LUE numbness yesterday associated with her chest pain. Also reports having fatigue and intermittent palpitations lately--> possible Afib? Given risk factors for CVA, ordered MRI brain to look for CVA as above PT/OT evals fall precautions (5) Arteriosclerotic coronary artery disease: Plan: 3vCABG in 2002. Follows with Dr. Norton. Statin intolerant. - Continue ezetimibe -Continue aspirin, added on metoprolol, continue lisinopril (6) HTN (hypertension): Plan: BPs are controlled - Continue home lisinopril and added on Toprol-XL - Monitor (7) Hypothyroidism: Plan: TSH was 0.093 with elevated FT4 this admission. - Lower home Synthroid to 88 mcg daily (from home 100 mcg) - Recheck in 4-6 weeks (8) Seasonal allergies: Plan: - Continue cetirizine (9) Anxiety and depression: Plan: Continue sertraline (10) Prediabetes: Plan: Hemoglobin A1c remains in the prediabetes range at 6.1% On medications for this Monitor as an outpatient (11) DVT prophylaxis: Plan: IV heparin since discontinued after cardiac catheterization Start Lovenox and SCDs Disposition-continued stay, PT/OT eval's, neurology evaluation, possible discharge tomorrow-Will need to see if rehab is needed after PT eval Admission and Anticipated Discharge Date Admission Date: June 16, 2022 Subjective Patient was seen on 2 occasions today. The first time was in the morning, and she was reporting some persistent dizziness as well as a strange feeling in her head. No headache. She does report some black spots in her vision at times and when asked about a curtain being drawn over her vision, also admits that she is experienced this in the last few weeks. Denies any slurred speech, facial droop, focal weakness anywhere else. She did have the numbness in her left upper extremity yesterday with the severe episode of chest pain but that is now resolved. She does admit that she has been under a lot of stress with not only the fairly recent passing of her , but also dealing with her son that has an opioid addiction. She does report that the dizziness came on yesterday while at home and she was bouncing off of things while trying to walk. She did not feel lightheaded but did feel more like the room was spinning a bit it was not until she was on route to the hospital that she developed the chest pain. She reports she has been chaudhari ving some dyspnea on exertion lately and has just been feeling very fatigued and having palpitations from time to time. I went back later in the evening to discuss the patient's MRI results with her. Telemetry with normal sinus rhythm, rates in the 70s to 80s Review of Systems Review of Systems: All systems reviewed & are unremarkable except as noted in HPI & below Has complaints of urinary frequency more than her usual and would like to be checked for UTI Physical Exam Constitutional: WD/WN, vitals as above Eyes: PERRL, conjunctivae normal, anicteric sclerae EOM intact bilaterally; no anisocoria and no nystagmus ENMT: external ear and nose normal, oropharynx normal Neck: trachea midline, no thyromegaly Respiratory: normal respiratory effort, lungs clear to auscultation Cardiovascular: RRR, no murmur, no edema Chest (Breasts): Chest: normal inspection of chest Gastrointestinal (Abdomen): normal bowel sounds, soft, nontender, no hepatosplenomegaly Musculoskeletal: Extremities: extremities normal to inspection; no cyanosis and no clubbing Skin: no rashes, warm and dry Neurologic: PERRL, EOMI, accommodation nl, no face palsy, no dysarthria CN's II-XI intact bilaterally, moves all extremities and awake; no focal motor deficits and not confused Speech / Cognition: normal speech Psychiatric: A+Ox3, euthymic affect Lymphatic: no lymphedema Results & Data Results & Data ([facility]) Vital Signs (Past 12 Hours) Vital Signs Temp Pulse Pulse Resp BP Pulse Ox O2 Del Method 06/17/22 07:00 63 06/17/22 07:00 36.9 C 71 16 138/67 95 Room Air 06/17/22 04:08 36.9 C 64 12 103/56 L 96 Room Air 06/16/22 23:15 36.5 C 62 16 107/58 L 96 Room Air Laboratory Results 06/17/22 06/17/22 06/17/22 Range/Units 16:29 11:15 07:25 WBC (4.8-10.8) K/ul RBC (3.93-5.22) M/uL Hgb (12.0-16.0) g/dl Hct (34.1-44.9) % MCV (80.0-100.0) fL MCH (25.0-34.0) pg MCHC (32.0-36.0) g/dL RDW Std Deviation (36.4-46.3) fL RDW Coeff of Becky (11.5-14.5) % Plt Count (130-400) K/uL MPV (9.4-12.3) fL Sodium (136-145) mmol/L Potassium (3.5-5.1) mmol/L Chloride (98-107) mmol/L Carbon Dioxide (21-32) mmol/L Anion Gap (3-11) BUN (6-23) mg/dl Creatinine (0.6-1.2) mg/dl Est Cr Clr Drug Dosing ml/min Est GFR ( Amer) ml/min Est GFR (Non-Af Amer) ml/min BUN/Creatinine Ratio (10-20) Glucose (70-99(Fasting)) mg/dl POC Glucose 102 H 109 H 95 (70-99) mg/dl Estimat Average Glucose mg/dl Hemoglobin A1c (4.5-5.6) % Calcium (8.5-10.1) mg/dl Magnesium (1.7-2.4) mg/dl Troponin I High Sens (0-14) pg/ml 06/17/22 06/17/22 06/17/22 Range/Units 06:46 06:46 06:46 WBC (4.8-10.8) K/ul RBC (3.93-5.22) M/uL Hgb (12.0-16.0) g/dl Hct (34.1-44.9) % MCV (80.0-100.0) fL MCH (25.0-34.0) pg MCHC (32.0-36.0) g/dL RDW Std Deviation (36.4-46.3) fL RDW Coeff of Becky (11.5-14.5) % Plt Count (130-400) K/uL MPV (9.4-12.3) fL Sodium 135 L (136-145) mmol/L Potassium 3.7 (3.5-5.1) mmol/L Chloride 105 (98-107) mmol/L Carbon Dioxide 23 (21-32) mmol/L Anion Gap 7 (3-11) BUN 12 (6-23) mg/dl Creatinine 0.61 (0.6-1.2) mg/dl Est Cr Clr Drug Dosing 57.5 ml/min Est GFR ( Amer) 95.8 ml/min Est GFR (Non-Af Amer) 82.7 ml/min BUN/Creatinine Ratio 19.7 (10-20) Glucose 94 (70-99(Fasting)) mg/dl POC Glucose (70-99) mg/dl Estimat Average Glucose 128 mg/dl Hemoglobin A1c 6.1 H (4.5-5.6) % Calcium 8.5 (8.5-10.1) mg/dl Magnesium 1.7 (1.7-2.4) mg/dl Troponin I High Sens 1975.9 H* D (0-14) pg/ml 06/17/22 06/16/22 Range/Units 06:46 20:36 WBC 5.10 (4.8-10.8) K/ul RBC 4.09 (3.93-5.22) M/uL Hgb 12.4 (12.0-16.0) g/dl Hct 36.0 (34.1-44.9) % MCV 88.0 (80.0-100.0) fL MCH 30.3 (25.0-34.0) pg MCHC 34.4 (32.0-36.0) g/dL RDW Std Deviation 44.5 (36.4-46.3) fL RDW Coeff of Becky 13.8 (11.5-14.5) % Plt Count 293 (130-400) K/uL MPV 8.8 L (9.4-12.3) fL Sodium (136-145) mmol/L Potassium (3.5-5.1) mmol/L Chloride (98-107) mmol/L Carbon Dioxide (21-32) mmol/L Anion Gap (3-11) BUN (6-23) mg/dl Creatinine (0.6-1.2) mg/dl Est Cr Clr Drug Dosing ml/min Est GFR ( Amer) ml/min Est GFR (Non-Af Amer) ml/min BUN/Creatinine Ratio (10-20) Glucose (70-99(Fasting)) mg/dl POC Glucose 108 H (70-99) mg/dl Estimat Average Glucose mg/dl Hemoglobin A1c (4.5-5.6) % Calcium (8.5-10.1) mg/dl Magnesium (1.7-2.4) mg/dl Troponin I High Sens (0-14) pg/ml PG Care Time/CCT Total # of Minutes Spent Total Time Spent with Patient: Total time spent is greater than 50% in coordination of care (as documented) at patient's floor/unit and/or counseling patient: Coding Level of Care Code 92844 Subseq Hosp Care Lvl 3 Diagnoses Stress-induced cardiomyopathy I51.81 Acute CVA (cerebrovascular accident) I63.9 Urinary frequency R35.0 Dizziness R42 Arteriosclerotic coronary artery disease I25.10 HTN (hypertension) I10 Hypertension type: unspecified Hypothyroidism E03.9 Seasonal allergies J30.2 Anxiety and depression F41.9; F32.9 Prediabetes R73.03 DVT prophylaxis Z29.9 (1) HTN (hypertension) Hypertension type: unspecified Qualified Code(s): I10 - Essential (primary) hypertension
[2022-06-17] MEDS ORDERED: LORazepam 0.5 MG in SYRINGE 0.25 ML IV ONE (14:30)
--- NOTE | 2022-06-17 15:55 | Magnetic Resonance Report ---
MR brain wo con HISTORY: 87 years-old Female dizziness,r/o CVA acute dizziness with strokelike symptoms COMPARISON: Brain MRI 06/16/2016 TECHNIQUE: Multiplanar multisequence MRI the brain was obtained without the use of IV contrast. FINDINGS: There is a 6 mm focus of slightly increased diffusion-weighted signal and mildly decreased signal on ADC map is noted within the left frontal lobe centrum semiovale, image 17 series 4 and image 17 of se kashmir 450. No acute or subacute territorial infarct. Partially empty sella. 5 mm pineal gland cyst. De generative changes of the imaged cervical spine. Indeterminate 2.9 cm lesion of the left frontal calv arium demonstrating decreased T1 marrow signal on image 15 series 3 is unchanged from the prior study . Based on stability this is favored to be benign. There is no acute intracranial hemorrhage, midline shift, abnormal extra-axial collection, hydrocepha mo or intracranial mass. No pathologic artifact on the T2 star series. The study is mildly motion de graded. Involutional changes. Mild T2/FLAIR hyperintense foci noted throughout the white matter. The cerebral venous sinuses and major arterial flow voids appear patent. Right mastoid effusion. Left mas toid air cells and paranasal sinuses are generally clear. Prior bilateral lens repair. IMPRESSION: 1. 6 cm focus of restricted diffusion within the left frontal lobe centrum semiovale is suggestive of an acute versus subacute lacunar infarct. 2. Involutional changes with mild chronic microvascular ischemic disease. ACT 112: Negative or not required by law. The above report was generated using voice recognition software. It may contain grammatical, syntax o r spelling errors. Electronically signed by: Donald Stovall M.D. 06/17/2022 3:54 PM
[2022-06-17] MEDS ORDERED: PHARMACIST DISCHARGE MED REC CONSULT PRN (16:54)
[2022-06-17] MEDS: CLOPIDOGREL BISULFATE 75 MG TAB PO SCH (18:06)
[2022-06-17] MEDS: ENOXAPARIN INJ 40 MG/0.4 ML SYR SQ SCH (18:06)
--- NOTE | 2022-06-17 18:20 | Ultrasound Report ---
US carotid doppler BI CLINICAL HISTORY: 87 years-old Female with acute CVA. Acute strokelike symptoms COMPARISON: Carotid ultrasound 06/07/2016, brain MRI 06/17/2022 TECHNIQUE: Multiple real time sonographic images of the carotid bifurcations were obtained assessing turner scale, color Doppler and spectral wave form appearance FINDINGS: RIGHT CAROTID: The peak systolic velocity within the right ICA is measured at 112 cm/sec. The end d iastolic velocity measured 23 cm/sec. The ICA to CCA ratio measured 2.25 which correlates with a giovanna nosis of 0-50%. Moderate atherosclerosis of the carotid bulb. LEFT CAROTID: The peak systolic velocity within the left ICA is measured at 64 cm/sec. The end núñez tolic velocity measured 17 cm/sec. The ICA to CCA ratio measured 1.01 which correlates with a stenosi s of 0-50%. Mild atherosclerosis of the carotid bulb There is normal antegrade vertebral flow bilaterally. IMPRESSION: 1. Atherosclerosis without hemodynamically significant stenosis. 2. Normal antegrade vertebral flow bilaterally. ACT 112: Negative or not required by law. The above report was generated using voice recognition software. It may contain grammatical, syntax o r spelling errors. Electronically signed by: Donald Stovall M.D. 06/17/2022 6:19 PM
[2022-06-17] MEDS: LIDOCAINE 5% 1 PATCH TD SCH (20:16)
[2022-06-17 21:17] LABS: Appearance Urine Clear (Clear); Bacteria Urine Automated Negative (Negative); Bilirubin Urine Negative (Negative); Blood Urine Negative (Negative); Color Urine Yellow; Glucose Urine UA Negative (Negative); Ketones Urine Negative (Negative); Leukocyte Esterase Urine Trace (Negative); Nitrite Urine Negative (Negative); Protein Urine Negative (Negative); RBC Urine Automated 0-4 /hpf (0-4); Specific Gravity Urine 1.011 (1.000-1.030); Urobilinogen Urine Negative (Negative); pH Urine 5.5 (4.5-7.5)
[2022-06-18] MEDS ORDERED: MELATONIN 3 MG TAB PO PRN (00:09)
[2022-06-18] MEDS: LEVOTHYROXINE SODIUM 88 MCG TABLET PO SCH (05:49)
[2022-06-18] MEDS: INSULIN ASPART PER UNIT SC SCH ×4 (07:32→20:26)
[2022-06-18 07:56] LABS: Basophils # (auto) 0.03 K/uL (0-0.2); Basophils % (auto) 0.5 %; Eosinophils # (auto) 0.15 K/uL (0-0.50); Eosinophils % (auto) 2.6 %; Hematocrit (blood only) 37.8 % (34.1-44.9); Hemoglobin 12.5 g/dl (12.0-16.0); Immature Granulocytes # (auto) 0.02 K/uL (0.00-0.02); Immature Granulocytes % (auto) 0.3 %; Lymphocytes # (auto) 1.46 K/uL (1.2-3.4); Lymphocytes % (auto) 24.9 %; Mean Corpuscular Hemoglobin 29.8 pg (25.0-34.0); Mean Corpuscular Hgb Conc 33.1 g/dL (32.0-36.0); Mean Platelet Volume 9.2 fL (9.4-12.3); Monocytes # (auto) 0.57 K/uL (0.24-0.82); Monocytes % (auto) 9.7 %; Neutrophils # (auto) 3.64 K/uL (1.4-6.5); Platelet Count 299 K/uL (130-400); RDW Coefficient of Variation 13.6 % (11.5-14.5); RDW Standard Deviation 44.6 fL (36.4-46.3); White Blood Count 5.87 K/ul (4.8-10.8)
[2022-06-18 08:20] LABS: BUN Creatinine Ratio 14.3 (10-20); Calcium 8.5 mg/dl (8.5-10.1); Chol HDL Ratio 2.9 (0-5); Creatinine Clr Calc Pharmacy 55.7 ml/min; Est GFR (African American) 94.8 ml/min; Est GFR (Non-African American) 81.8 ml/min; Magnesium 1.6 mg/dl (1.7-2.4); Potassium 3.9 mmol/L (3.5-5.1)
[2022-06-18] MEDS: SERTRALINE HCL 50 MG TABLET PO SCH (08:31)
[2022-06-18] MEDS: CETIRIZINE HCL 10 MG TABLET PO SCH (08:31)
[2022-06-18] MEDS: METOPROLOL SUCC 25MG EXT REL TAB PO SCH (08:31)
[2022-06-18] MEDS: EZETIMIBE 10 MG TABLET PO SCH (08:31)
[2022-06-18] MEDS: ASPIRIN 81 MG ECTAB PO SCH (08:31)
[2022-06-18] MEDS: PANTOprazole 40 MG TAB PO SCH (08:32)
[2022-06-18] MEDS: OXYBUTYNIN CHLORIDE XL 5 MG TABCR PO SCH (08:32)
[2022-06-18] MEDS: CLOPIDOGREL BISULFATE 75 MG TAB PO SCH (08:32)
[2022-06-18] MEDS: ENOXAPARIN INJ 40 MG/0.4 ML SYR SQ SCH (08:32)
[2022-06-18] MEDS: lisinopril 20 MG TAB PO SCH (08:32)
[2022-06-18] MEDS ORDERED: MAGNESIUM SULFATE / D5W 1 GM/100 ML BAG IV ONE (08:39)
--- NOTE | 2022-06-18 08:46 | Neurology Consultation ---
Date of Consultation June 18, 2022 Assessment & Plan (1) BPPV (benign paroxysmal positional vertigo): (2) Acute CVA (cerebrovascular accident): (3) Carotid artery plaque: Plan 87-year-old female presenting with symptoms that seem most consistent with benign positional paroxysmal vertigo localizing to the left ear. However, she did have some ECG abnormalities and an elevated troponin and underwent cardiac catheterization. She does have a known history of severe coronary artery disease and a history of coronary artery bypass grafting. No specific intervention was required during her cardiac catheterization. Due to her persistent dizziness, however, a brain MRI was ordered which did reveal a small acute to subacute appearing infarct within the left frontal lobe. The finding is quite minimal and I think incidental in the context of her symptoms which are most consistent with BPPV. She did not present with any symptoms localizing to the left cerebral hemisphere. I am unable to determine with certainty if this tiny punctate left frontal infarct is related to her cardiac catheterization or occurred prior to her hospitalization. She does have apical akinesis and severe hypokinesis to akinesis in the mid segments of her left ventricle on recent echocardiography. A small cardioembolic stroke is not excluded. She also has mild to moderate plaque of both carotid bulbs although greater on the right. I do not suspect carotid to cerebral embolism. Other stroke risk factors for this patient include hypertension, dyslipidemia, and prediabetes. Would recommend dual antiplatelet therapy for 3 weeks, add clopidogrel 75 mg/day to her medication regimen, including daily low-dose aspirin. After 3 weeks would discontinue aspirin in favor of Plavix monotherapy. Would also recommend 30-day mobile cardiac outpatient telemetry. However, given that she does have apical akinesis and severe hypokinesis to akinesis in the mid segments of the left ventricle may not be completely unreasonable to recommend an anticoagulant such as Xarelto or Eliquis in this patient as well. I also note her remote history of DVT for which she had been on warfarin many years ago. Nonetheless, given that she is 87 years of age and presumably at increased risk for bleeding complications with anticoagulation, would recommend clopidogrel at this point in time. For this patient's BPPV symptomatology, would consider a trial of meclizine, watchful waiting, and/or potential referral to physical therapy for Ana M maneuvers if her symptoms do not improve. History of Present Illness Reason for Consultation: stroke, dizziness Requesting Physician: Svetlana Vinson MD Attending Physician: Svetlana Vinson MD History of Present Illness The patient is an 87-year-old female with a chief complaint of dizziness, vague feeling of motion or vertigo, triggered by lying back and turning her head to the left. She complains of an associated feeling of left ear fullness and pressure, no hearing loss or tinnitus. Vertigo improved with sitting upright. Patient's dizziness and vertigo was noted at the time of her [facility] to the [facility], she had apparently stumbled and fell at her sink at home although did not strike her head. She got back into bed and noted that the dizziness was worse with lying down and improved with sitting upright. At the time of her admission to the [facility] she was noted to have some ECG abnormalities and a slightly elevated troponin. She has a known history of coronary artery disease for which he has undergone bypass surgery previously. She underwent cardiac catheterization yesterday, medical therapy recommended. She did have an echocardiogram completed yesterday as well which revealed an ejection fraction of 35 to 40%, apical akinesis with severe hypokinesis to akinesis and mid segment sparing the lateral wall. Compared with the prior study in June 2020 left ventricular dysfunction with wall motion abnormalities are new. The left atrium is mildly dilated. No ASD detected, PFO not assessed. Patient does relay a remote history of lower extremity DVT for which she believes she was on warfarin. A brain MRI was completed yesterday which revealed a 6 mm acute to subacute infarct within the left frontal lobe. A carotid ultrasound revealed atherosclerosis without hemodynamically significant stenosis and antegrade flow in both vertebral arteries. The patient continues to report some vertigo upon lying back and turning her head to the left this morning, again, resolved with sitting upright. She denies any new weakness or sensory loss. She does complain of some intermittent difficulty with blurry vision affecting both eyes, no diplopia or overt vision loss, however. Her vision symptoms have been present for at least the past 6 months. She has been evaluated by her eye doctor although apparently no significant abnormalities have been identified. She has a history of cataract removal, no known history of macular degeneration. Patient was taking daily low-dose aspirin and Zetia as an outpatient. She does not have a known history of atrial fibrillation although does report occasional palpitations. She usually follows with Dr. Norton, [facility] cardiology as an outpatient. She denies a history of benign positional paroxysmal vertigo. She does complain of some chronic sinus pressure. Allergies Allergy/AdvReac Type Severity Reaction Status Date / Time ciprofloxacin [From Cipro] Allergy Mild nauseated Verified 06/16/22 14:54 furosemide [From Lasix] Allergy Unknown Unknown Verified 06/16/22 14:54 hydrochlorothiazide Allergy Unknown Unknown Verified 06/16/22 14:54 nitrofurantoin Allergy Unknown Unknown Verified 06/16/22 14:54 [From Macrobid] codeine AdvReac Severe CHEST PAIN Verified 06/16/22 14:54 felodipine [From Plendil] AdvReac Mild NON Verified 06/16/22 14:54 TOLERANT oxycodone [From Percocet] AdvReac Mild NON Verified 06/16/22 14:54 TOLERANT pravastatin [From Pravachol] AdvReac Mild MYALGIAS Verified 06/16/22 14:54 simvastatin [From Zocor] AdvReac Mild MYALGIAS Verified 06/16/22 14:54 Raohngo-CXC-VnT Reductase AdvReac Mild Muscle Verified 06/16/22 14:54 Inhibitor aches and [Uwxexhg-Pap-Thw Reductase cramping. Inhibitor] theophylline [From Silas-Dur] AdvReac Mild NON Verified 06/16/22 14:54 TOLERANT Home Medications Medication Instructions Recorded Confirmed Type lancets 26 gauge ([place] 1 #50 ea 04/27/19 03/11/22 History Lancets) aspirin 81 mg tablet,delayed 81 mg PO QAM 05/30/19 06/16/22 History release biotin 10 mg tablet 10 mg PO QAM 05/30/19 06/16/22 History cholecalciferol (vitamin D3) 125 5,000 units PO QAM 05/30/19 06/16/22 History mcg (5,000 unit) capsule nitroglycerin 0.4 mg sublingual 0.4 mg sublingual UD PRN Chest Pain 05/30/19 06/16/22 History tablet (Nitrostat) omeprazole 20 mg capsule,delayed 20 mg PO DAILY 12/13/19 06/16/22 History release calcium carb,cit ER 600 mg-vit D3 1 tab PO BID #60 tabs 01/16/20 06/16/22 Rx 12.5 mcg (500 unit) tablet,ext.rel (Citracal-D3 Slow Release) blood sugar diagnostic (Blood #100 ea 05/18/21 03/11/22 Rx Glucose Test) blood-glucose meter (Blood Glucose #1 ea 05/18/21 03/11/22 Rx Monitoring) ezetimibe 10 mg tablet 10 mg PO DAILY 07/02/21 06/16/22 History cetirizine 10 mg tablet (Zyrtec) 10 mg PO DAILY #30 tabs 11/26/21 06/16/22 Rx lisinopril 20 mg tablet 20 mg PO QAM #90 tabs 12/17/21 06/16/22 Rx oxybutynin chloride 5 mg 5 mg PO DAILY #30 tabs 02/17/22 06/16/22 Rx tablet,extended release 24 hr sertraline 25 mg tablet 25 mg PO DAILY #30 tabs 02/17/22 06/16/22 Rx Synthroid 100 mcg tablet 100 mcg PO DAILY #30 tabs 04/14/22 06/16/22 Rx (levothyroxine) Patient History Medical History Acute CVA (cerebrovascular accident) Anxiety and depression Arteriosclerotic coronary artery disease Carotid artery plaque COVID-19 (06/2021) Dyslipidemia GERD (gastroesophageal reflux disease) History of anesthesia reaction after last colonoscopy 2015 @ [facility] pt became dizzy with chest tightness and HTN in recovery area--Dr. Pankaj Montano sent pt to the ER for further evaluation (see anesthesia note from procedure), pt states no further issues and was discharged home. 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 Osteoporosis Prediabetes Reactive airway disease SBO (small bowel obstruction) Scoliosis Seasonal allergies Spinal stenosis Stress-induced cardiomyopathy Type 2 diabetes mellitus Urinary incontinence Vitamin D deficiency Surgical History H/O hemorrhoidectomy History of appendectomy History of cataract surgery BILATERAL History of colonoscopy History of coronary artery bypass graft 2000-TRIPLE BYPASS @[facility] [place] History of esophagogastroduodenoscopy History of partial colectomy SEP 2013 History of tooth extraction partial upper and lower dentures History of tubal ligation Hx of cholecystectomy Hx of varicose vein ligation and stripping S/P exploratory laparotomy 06/17/19 with lysis of adhesions Dr. Modesto Hernandez Family History Sister Family history of diabetes mellitus Mother Family history of diabetes mellitus Stroke Father Family history of diabetes mellitus Parkinsons disease Brother Family history of diabetes mellitus Prostate cancer Grandfather (Paternal) Family history of stomach cancer Other No family history of adverse response to anesthesia Denies family history of Ovarian cancer Breast cancer Lung cancer Colorectal cancer Social History Smoking Status: Never smoker Second Hand Exposure: No; Hx Alcohol Use: Yes Alcohol type: wine Alcohol Intake Frequency: Monthly or Less Hx Substance Use: No Preferred Language: Telugu Communication Ability: Effective Visual Impairment: No Limitations Hearing Ability: Normal Professor Of Nursing Required: Yes and No Beliefs That Will Affect Care: None marital status: / marital status details: Lost spouse Dec 2021 Current Living Situation: Family Current Living Situation Comment: Daughter current occupational status: retired Feels Safe at Home: Yes Childhood Exposure to Second-Hand Smoke: Yes Diet Comment: regular caffeine: Yes (coffee) during the past year weight has: remained stable Dental Care, Regularly: Yes Physical Activity Frequency: Other Seatbelt Use: always Sunscreen Use: Yes Assistive Devices: None Review of Systems Constitutional: no fever and no chills Eyes: as per Subjective / HPI; no blind spots, no diplopia and no eye pain Ear, Nose, Mouth, Throat: as per Subjective / HPI and + dizziness; no ear pain Respiratory: no cough and no dyspnea Cardiovascular: as per Subjective / HPI, + chest pain and + palpitations Gastrointestinal: + nausea; no vomiting Genitourinary: no dysuria Musculoskeletal: + back pain; no neck pain and no myalgia Integumentary: no rash Neurologic: as per Subjective / HPI; no localized weakness, no loss of sensation, no tremor(s), no headache(s), no confusion and no memory loss Psychiatric: no depression and no anxiety Hematologic / Lymphatic: no easy bleeding and no easy bruising Exam (Neuro) Constitutional: well developed and well nourished; no acute distress Eyes: normal visual contreras by confrontation, PERRL, normal accommodation and EOM intact bilaterally; no fundoscopic abnormality, no nystagmus and no papilledema Cardiovascular: Vessels: normal carotid upstroke; no carotid bruit Neurologic: Oriented to:: Person, Place and Time Memory: Short Term Intact and Remote Intact Attention: Span Intact and Concentration Intact Language: Naming Objects and Repeating Phrases Speech Fluency: negative Dysarthria Speech Aphasia: negative Aphasia Fund of Knowledge: Current Events, Past History and Vocabulary Cranial Nerves: Normal II (Visual contreras full to confrontation, visual acuity normal), III, IV, (Pupils equal round reactive to light and accommodation, eye movements normal), V (Facial sensation intact), VII (There is no facial droop or weakness), VIII (Hearing intact), IX, X (Palate elevates to midline), XI (Shoulder shrug intact) and XII (Tongue protrudes to midline) Motor Strength: Normal Lower Extremities and Normal Upper Extremities; negative Pronator Drift Motor Tone: Normal Lower Extremities and Normal Upper Extremities Muscle Bulk/Involuntary Movements: No Involuntary Movements; negative Muscle Atrophy Sensation: Light Touch Intact, Pain/Temperature Intact, Vibration Intact and Proprioception Intact Coordination: Normal; negative Limited Balance, Dysdiadochokinesia, Finger-Nose Abnormal or Heel-Medeiros Abnormal Deep Tendon Reflexes: Rt Triceps: 2+, Lt Triceps: 2+, Rt Biceps: 2+, Lt Biceps: 2+, Rt Brachioradialis: 2+, Lt Brachioradialis: 2+, Rt Patellar: 2+, Lt Patellar: 2+, Rt Ankle: 2+ and Lt Ankle: 2+ Special Tests: negative Babinski Present Gait: Normal Station and Gait Details: Perception of vertigo induced with having patient lie flat on her back and with head turned to the left, no obvious nystagmus, however. Vertigo improved with having patient sit up. Results & Data ([facility]) Vital Signs (Past 12 Hours) Vital Signs Temp Pulse Pulse Resp BP Pulse Ox O2 Del Method 06/18/22 08:00 59 L 06/18/22 07:04 36.5 C 73 18 144/74 H 97 Room Air 06/18/22 02:35 36.7 C 74 18 178/74 H 97 Room Air 06/17/22 22:30 54 L 06/17/22 22:52 36.5 C 60 18 132/72 98 Room Air Laboratory Results WBC 5.87, hemoglobin 12.5, hematocrit 37.8, MCV 90.0, platelet count 299, sodium 134, potassium 3.9, BUN 9, creatinine 0.63, glucose 98, calcium 8.5, magnesium 1.6, triglycerides 110, cholesterol 144, LDL 73, VLDL 22, HDL 49, high- sensitivity troponin 1975.9 yesterday. Diagnostic Findings Carotid ultrasound and brain MRI results are as described above in the history of present illness. I did independently review the images pertaining to the brain MRI and was able to appreciate the punctate subacute to acute ischemic infarct within the left frontal lobe measuring about 6 mm in size as identified by the interpreting radiologist. No other areas of potential infarct identified. No blooming artifact. There is a mild degree of chronic microvascular ischemic change on T2/FLAIR sequences. There is mild to moderate generalized atrophy. No hydrocephalus. There is no Chiari malformation. Echocardiography is as described in the HPI. Coding Level of Care Code 95971 Initial Inpt Care Lvl 3 Diagnoses BPPV (benign paroxysmal positional vertigo) H81.10 Acute CVA (cerebrovascular accident) I63.9 Carotid artery plaque I65.29
[2022-06-18 09:02] LABS: Lyme Ab IgG w/WB Rflx Negative (Negative); Lyme Ab IgM w/WB Rflx Negative (Negative)
[2022-06-18] MEDS ORDERED: MECLIZINE 12.5 MG TAB PO PRN (09:28)
--- NOTE | 2022-06-18 12:43 | Cardiology Progress Note ---
Date of Service June 18, 2022 Assessment & Plan (1) Stress-induced cardiomyopathy: Plan: -classic findings on echocardiogram. -LVEF 35-40%. -continue metoprolol succinate and lisinopril. -timing of repeat echocardiogram to be determined. (2) Arteriosclerotic coronary artery disease: Plan: -history of CABG x3, August 2003 (BAIRD to the LAD, SVG to RI, SVG to D1). -cardiac catheterization performed yesterday with the following results: -BAIRD small, atretic, and patent. -SVG to D1 widely patent. -SVG to ramus intermedius 100% obstructed -60% mid LAD, 20% mid LCx, and luminal irregularities within RCA. -continue medical management. (3) Dyslipidemia: Plan: -statin intolerant, continue Zetia -consider PCSK9 inhibitor as outpatient. (4) HTN (hypertension): Plan: -blood pressure adequately controlled on current regimen. Admission and Anticipated Discharge Date Admission Date: June 16, 2022 Subjective The patient is resting comfortably in bed without complaints of chest pain or dyspnea. We have discussed the diagnosis of a stress-induced cardiomyopathy. Physical Exam Physical Exam: In general is well-developed well-nourished white female no acute distress. HEENT exam is negative. Neck is supple with full carotid upstrokes. No obvious bruits. No JVD. There is no thyromegaly. Cardiovascular exam reveals a regular rhythm with distant heart sounds. A 1/6 basal systolic ejection murmur is noted. Chest reveals well-healed midline scar. Lungs are clear without rales, rhonchi or wheezes. Abdomen is obese without bruits. Extremities reveal intact radial artery pulses bilaterally. There is trace pretibial edema. Results & Data ([facility]) Vital Signs (Past 12 Hours) Vital Signs Temp Pulse Pulse Resp BP Pulse Ox O2 Del Method 06/18/22 11:19 36.3 C L 65 18 124/82 98 Room Air 06/18/22 08:00 59 L 06/18/22 07:04 36.5 C 73 18 144/74 H 97 Room Air 06/18/22 02:35 36.7 C 74 18 178/74 H 97 Room Air Laboratory Results High sensitivity troponin peaked at 4224.6 with a follow-up value of 1975.9. Diagnostic Findings global marketing specialist notes sinus rhythm. PG Care Time/CCT Total # of Minutes Spent Total Time Spent with Patient: Total time spent is greater than 50% in coordination of care (as documented) at patient's floor/unit and/or counseling patient: Coding Level of Care Code 64035 Subseq Hosp Care Lvl 3 Diagnoses Stress-induced cardiomyopathy I51.81 Arteriosclerotic coronary artery disease I25.10 Dyslipidemia E78.5 HTN (hypertension) I10 Hypertension type: unspecified (1) HTN (hypertension) Hypertension type: unspecified Qualified Code(s): I10 - Essential (primary) hypertension
--- NOTE | 2022-06-18 15:06 | Hospitalist Progress Note ---
Date of Service June 18, 2022 Assessment & Plan (1) Stress-induced cardiomyopathy: Plan: Presented with dizziness followed by acute onset chest pain with radiation to left shoulder in ambulance on way to ER. Initial troponin was drawn only 15 minutes after onset of chest pain and was 53 and ECG initially with septal J- point elevation versus possible acute septal infarct. Subsequent troponin went up to 4224 and repeat ECG showed probable evolving septal infarction She was treated initially with aspirin, nitroglycerin, heparin drip, and started on metoprolol. Cardiology was consulted and she went for urgent cardiac catheterization after echocardiogram showed LVEF 35-40% with apical akinesis with severe hypokinesis to akinesis in the mid segment sparing the lateral wall, and mild concentric LVH with sigmoid septum, otherwise normal Cardiac catheterization showed chronic multivessel CAD, but no acute high risk CAD. Findings were most consistent with stress-induced cardiomyopathy. Troponin trended back downward She has had no further chest pain. Still complains of ongoing fatigue, but this has been present for many weeks. Lyme negative, TSH is slightly low. 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 -Given dizziness, work-up for stroke ensued as below -No evidence of acute decompensation of heart failure-no need for diuretics -No evidence of cardiogenic shock or mention of LVOT obstruction -Started Toprol-XL 25 Mg p.o. once daily -continue home lisinopril 20 mg daily. Given that this will most likely be a transient cardiomyopathy, Entresto not needed -Monitor on telemetry for arrhythmia-none so far, but has been complaining of palpitations prior to admission-will get 30 day event monitor after discharge -Appreciate cardiology management-we will need outpatient follow-up with echocardiogram repeated in the near future -Follow CBC, BMP, magnesium in the morning, replace magnesium today (2) Acute CVA (cerebrovascular accident): Plan: Given ongoing dizziness that preceded her chest pain event, and also description of possible amaurosis fugax, proceeded to get MRI of the brain MRI of the brain showing 6 mm left frontal lobe centrum semiovale acute versus subacute lacunar infarct Unclear if this tiny infarct is the cause of her dizziness, or is simply an incidental finding, however we will proceed with secondary stroke work-up Carotid Doppler with bilat 0-50% stenosis Echocardiogram as above without thrombus -Continue to monitor for occult atrial fibrillation/flutter on telemetry and plan for 30-day event monitor after discharge -Hemoglobin A1c in the prediabetes range at 6.1% - lipid panel excellent but she is completely intolerant to all statins- given concurrent history of CAD, consideration could be given to PCSK9 inhibitors- defer as outpatient -Neuro checks -Neurology consult appreciated -added Plavix to her aspirin and plan for 3 weeks of DAPT followed by discontinuation of aspirin in favor of Plavix monotherapy after that -PT/OT consults placed given ongoing dizziness-recommend home health Dizziness thought to be secondary to BPPV as per Neuro--> trial of meclizine added, can do Nic's with PT (3) Urinary frequency: Plan: Has a history of overactive bladder and is on oxybutynin, however she feels it is worse than usual Checked UA and negative (4) Dizziness: Plan: as above, likely BPPV and not 2/2 CVA trial of meclizine (5) Arteriosclerotic coronary artery disease: Plan: 3vCABG in 2002. [address] Norton. Statin intolerant. - Continue ezetimibe -Continue aspirin, added on metoprolol, continue lisinopril (6) HTN (hypertension): Plan: BPs are controlled - Continue home lisinopril and added on Toprol-XL - Monitor (7) Hypothyroidism: Plan: TSH was 0.093 with elevated FT4 this admission. - Lower home Synthroid to 88 mcg daily (from home 100 mcg) - Recheck in 4-6 weeks (8) Seasonal allergies: Plan: - Continue cetirizine (9) Anxiety and depression: Plan: with fatigue ongoing for quite some time, may be related to depression but may be side effect of sertraline -consider changing to Celexa or another antidepressant that does not significantly interact with Plavix (10) Prediabetes: Plan: Hemoglobin A1c remains in the prediabetes range at 6.1% Not on medications for this Monitor as an outpatient (11) DVT prophylaxis: Plan: IV heparin since discontinued after cardiac catheterization continue Lovenox and SCDs Disposition-continued stay for ongoing fatigue, but hopeful for dc to home tomorrow with home health Admission and Anticipated Discharge Date Admission Date: June 16, 2022 Subjective Pt still feeling very fatigued today and does not feel up for going home. No CP, no SOB. and dizziness has improved. We talked for a while about her isolating herself more since she moved in with her daughter after the of her as she didn't want to burden her daughter with talking about his . I discussed her care with Cardiology. Tele with SB, NSR, rates 50-80s Review of Systems Review of Systems: All systems reviewed & are unremarkable except as noted in HPI & below Physical Exam Constitutional: WD/WN, vitals as above Eyes: PERRL, conjunctivae normal, anicteric sclerae EOM intact bilaterally; no anisocoria and no nystagmus Neck: trachea midline, no thyromegaly Respiratory: normal respiratory effort, lungs clear to auscultation Cardiovascular: RRR, no murmur, no edema Chest (Breasts): Chest: normal inspection of chest Gastrointestinal (Abdomen): normal bowel sounds, soft, nontender, no hepatosplenomegaly Musculoskeletal: Extremities: extremities normal to inspection; no cyanosis and no clubbing Skin: no rashes, warm and dry Neurologic: PERRL, EOMI, accommodation nl, no face palsy, no dysarthria CN's II-XI intact bilaterally, moves all extremities and awake; no focal motor deficits and not confused Speech / Cognition: normal speech Psychiatric: A+Ox3, euthymic affect Lymphatic: no lymphedema Results & Data Results & Data ([facility]) Vital Signs (Past 12 Hours) Vital Signs Temp Pulse Pulse Resp BP Pulse Ox O2 Del Method 06/18/22 11:19 36.3 C L 65 18 124/82 98 Room Air 06/18/22 08:00 59 L 06/18/22 07:04 36.5 C 73 18 144/74 H 97 Room Air Laboratory Results 06/18/22 06/18/22 06/18/22 Range/Units 11:21 07:03 06:58 WBC (4.8-10.8) K/ul RBC (3.93-5.22) M/uL Hgb (12.0-16.0) g/dl Hct (34.1-44.9) % MCV (80.0-100.0) fL MCH (25.0-34.0) pg MCHC (32.0-36.0) g/dL RDW Std Deviation (36.4-46.3) fL RDW Coeff of Becky (11.5-14.5) % Plt Count (130-400) K/uL MPV (9.4-12.3) fL Immature Gran % (Auto) % Neut % (Auto) % Lymph % (Auto) % [place] % (Auto) % Eos % (Auto) % Baso % (Auto) % Neut # (Auto) (1.4-6.5) K/uL Lymph # (Auto) (1.2-3.4) K/uL [place] # (Auto) (0.24-0.82) K/uL Eos # (Auto) (0-0.50) K/uL Baso # (Auto) (0-0.2) K/uL Immature Gran # (Auto) (0.00-0.02) K/uL Sodium (136-145) mmol/L Potassium (3.5-5.1) mmol/L Chloride (98-107) mmol/L Carbon Dioxide (21-32) mmol/L Anion Gap (3-11) BUN (6-23) mg/dl Creatinine (0.6-1.2) mg/dl Est Cr Clr Drug Dosing ml/min Est GFR ( Amer) ml/min Est GFR (Non-Af Amer) ml/min BUN/Creatinine Ratio (10-20) Glucose (70-99(Fasting)) mg/dl POC Glucose 117 H 99 (70-99) mg/dl Calcium (8.5-10.1) mg/dl Magnesium (1.7-2.4) mg/dl Triglycerides (0-150) mg/dl Cholesterol (0-200) mg/dl LDL Cholesterol, Calc mg/dl VLDL Cholesterol, Calc (0-30) mg/dl HDL Cholesterol mg/dl Cholesterol/HDL Ratio (0-5) Urine Color Urine Appearance (Clear) Urine pH (4.5-7.5) Ur Specific [place] (1.000-1.030) Urine Protein (Negative) Urine Glucose (UA) (Negative) Urine Ketones (Negative) Urine Blood (Negative) Urine Nitrite (Negative) Urine Bilirubin (Negative) Urine Urobilinogen (Negative) Ur Leukocyte Esterase (Negative) Urine WBC (Auto) (0-5) /hpf Urine RBC (Auto) (0-4) /hpf U Hyaline Cast (Auto) (0-5) /lpf U Epithel Cells (Auto) (0-5) /lpf Urine Bacteria (Auto) (Negative) Lyme Disease IgG Ab Negative (Negative) Lyme Disease IgM Ab Negative (Negative) 06/18/22 06/18/22 06/17/22 Range/Units 06:58 06:58 20:59 WBC 5.87 (4.8-10.8) K/ul RBC 4.20 (3.93-5.22) M/uL Hgb 12.5 (12.0-16.0) g/dl Hct 37.8 (34.1-44.9) % MCV 90.0 (80.0-100.0) fL MCH 29.8 (25.0-34.0) pg MCHC 33.1 (32.0-36.0) g/dL RDW Std Deviation 44.6 (36.4-46.3) fL RDW Coeff of Becky 13.6 (11.5-14.5) % Plt Count 299 (130-400) K/uL MPV 9.2 L (9.4-12.3) fL Immature Gran % (Auto) 0.3 % Neut % (Auto) 62.0 % Lymph % (Auto) 24.9 % [place] % (Auto) 9.7 % Eos % (Auto) 2.6 % Baso % (Auto) 0.5 % Neut # (Auto) 3.64 (1.4-6.5) K/uL Lymph # (Auto) 1.46 (1.2-3.4) K/uL [place] # (Auto) 0.57 (0.24-0.82) K/uL Eos # (Auto) 0.15 (0-0.50) K/uL Baso # (Auto) 0.03 (0-0.2) K/uL Immature Gran # (Auto) 0.02 (0.00-0.02) K/uL Sodium 134 L (136-145) mmol/L Potassium 3.9 (3.5-5.1) mmol/L Chloride 104 (98-107) mmol/L Carbon Dioxide 25 (21-32) mmol/L Anion Gap 5 (3-11) BUN 9 (6-23) mg/dl Creatinine 0.63 (0.6-1.2) mg/dl Est Cr Clr Drug Dosing 55.7 ml/min Est GFR ( Amer) 94.8 ml/min Est GFR (Non-Af Amer) 81.8 ml/min BUN/Creatinine Ratio 14.3 (10-20) Glucose 98 (70-99(Fasting)) mg/dl POC Glucose (70-99) mg/dl Calcium 8.5 (8.5-10.1) mg/dl Magnesium 1.6 L (1.7-2.4) mg/dl Triglycerides 110 (0-150) mg/dl Cholesterol 144 (0-200) mg/dl LDL Cholesterol, Calc 73 mg/dl VLDL Cholesterol, Calc 22 (0-30) mg/dl HDL Cholesterol 49 mg/dl Cholesterol/HDL Ratio 2.9 (0-5) Urine Color Yellow Urine Appearance Clear (Clear) Urine pH 5.5 (4.5-7.5) Ur Specific [place] 1.011 (1.000-1.030) Urine Protein Negative (Negative) Urine Glucose (UA) Negative (Negative) Urine Ketones Negative (Negative) Urine Blood Negative (Negative) Urine Nitrite Negative (Negative) Urine Bilirubin Negative (Negative) Urine Urobilinogen Negative (Negative) Ur Leukocyte Esterase Trace H (Negative) Urine WBC (Auto) 5-10 H (0-5) /hpf Urine RBC (Auto) 0-4 (0-4) /hpf U Hyaline Cast (Auto) 1-5 (0-5) /lpf U Epithel Cells (Auto) 5-10 H (0-5) /lpf Urine Bacteria (Auto) Negative (Negative) Lyme Disease IgG Ab (Negative) Lyme Disease IgM Ab (Negative) 06/17/22 06/17/22 Range/Units 20:47 16:29 WBC (4.8-10.8) K/ul RBC (3.93-5.22) M/uL Hgb (12.0-16.0) g/dl Hct (34.1-44.9) % MCV (80.0-100.0) fL MCH (25.0-34.0) pg MCHC (32.0-36.0) g/dL RDW Std Deviation (36.4-46.3) fL RDW Coeff of Becky (11.5-14.5) % Plt Count (130-400) K/uL MPV (9.4-12.3) fL Immature Gran % (Auto) % Neut % (Auto) % Lymph % (Auto) % [place] % (Auto) % Eos % (Auto) % Baso % (Auto) % Neut # (Auto) (1.4-6.5) K/uL Lymph # (Auto) (1.2-3.4) K/uL [place] # (Auto) (0.24-0.82) K/uL Eos # (Auto) (0-0.50) K/uL Baso # (Auto) (0-0.2) K/uL Immature Gran # (Auto) (0.00-0.02) K/uL Sodium (136-145) mmol/L Potassium (3.5-5.1) mmol/L Chloride (98-107) mmol/L Carbon Dioxide (21-32) mmol/L Anion Gap (3-11) BUN (6-23) mg/dl Creatinine (0.6-1.2) mg/dl Est Cr Clr Drug Dosing ml/min Est GFR ( Amer) ml/min Est GFR (Non-Af Amer) ml/min BUN/Creatinine Ratio (10-20) Glucose (70-99(Fasting)) mg/dl POC Glucose 131 H 102 H (70-99) mg/dl Calcium (8.5-10.1) mg/dl Magnesium (1.7-2.4) mg/dl Triglycerides (0-150) mg/dl Cholesterol (0-200) mg/dl LDL Cholesterol, Calc mg/dl VLDL Cholesterol, Calc (0-30) mg/dl HDL Cholesterol mg/dl Cholesterol/HDL Ratio (0-5) Urine Color Urine Appearance (Clear) Urine pH (4.5-7.5) Ur Specific [place] (1.000-1.030) Urine Protein (Negative) Urine Glucose (UA) (Negative) Urine Ketones (Negative) Urine Blood (Negative) Urine Nitrite (Negative) Urine Bilirubin (Negative) Urine Urobilinogen (Negative) Ur Leukocyte Esterase (Negative) Urine WBC (Auto) (0-5) /hpf Urine RBC (Auto) (0-4) /hpf U Hyaline Cast (Auto) (0-5) /lpf U Epithel Cells (Auto) (0-5) /lpf Urine Bacteria (Auto) (Negative) Lyme Disease IgG Ab (Negative) Lyme Disease IgM Ab (Negative) PG Care Time/CCT Total # of Minutes Spent Total Time Spent with Patient: Total time spent is greater than 50% in coordination of care (as documented) at patient's floor/unit and/or counseling patient: Coding Level of Care Code 74810 Subseq Hosp Care Lvl 3 Diagnoses Stress-induced cardiomyopathy I51.81 Acute CVA (cerebrovascular accident) I63.9 Urinary frequency R35.0 Dizziness R42 Arteriosclerotic coronary artery disease I25.10 HTN (hypertension) I10 Hypertension type: unspecified Hypothyroidism E03.9 Seasonal allergies J30.2 Anxiety and depression F41.9; F32.9 Prediabetes R73.03 DVT prophylaxis Z29.9 (1) HTN (hypertension) Hypertension type: unspecified Qualified Code(s): I10 - Essential (primary) hypertension
[2022-06-18] MEDS: LIDOCAINE 5% 1 PATCH TD SCH (20:27)
[2022-06-19] MEDS: LEVOTHYROXINE SODIUM 88 MCG TABLET PO SCH (05:46)
[2022-06-19 07:01] LABS: BUN Creatinine Ratio 16.7 (10-20); Calcium 8.3 mg/dl (8.5-10.1); Creatinine Clr Calc Pharmacy 58.5 ml/min; Est GFR (African American) 96.3 ml/min; Est GFR (Non-African American) 83.1 ml/min; Magnesium 1.8 mg/dl (1.7-2.4); Potassium 3.9 mmol/L (3.5-5.1)
[2022-06-19] MEDS: PANTOprazole 40 MG TAB PO SCH (08:32)
[2022-06-19] MEDS: ASPIRIN 81 MG ECTAB PO SCH (08:32)
[2022-06-19] MEDS: EZETIMIBE 10 MG TABLET PO SCH (08:32)
[2022-06-19] MEDS: CETIRIZINE HCL 10 MG TABLET PO SCH (08:32)
[2022-06-19] MEDS: CLOPIDOGREL BISULFATE 75 MG TAB PO SCH (08:32)
[2022-06-19] MEDS: OXYBUTYNIN CHLORIDE XL 5 MG TABCR PO SCH (08:33)
[2022-06-19] MEDS: lisinopril 20 MG TAB PO SCH (08:33)
[2022-06-19] MEDS: METOPROLOL SUCC 25MG EXT REL TAB PO SCH (08:34)
[2022-06-19] MEDS: SERTRALINE HCL 50 MG TABLET PO SCH (08:34)
[2022-06-19] MEDS: INSULIN ASPART PER UNIT SC SCH ×4 (08:46→20:19)
[2022-06-19] MEDS: ENOXAPARIN INJ 40 MG/0.4 ML SYR SQ SCH (08:47)
[2022-06-19] MEDS ORDERED: MECLIZINE 12.5 MG TAB PO STA (09:31)
--- NOTE | 2022-06-19 10:45 | Neurology Progress Note ---
Date of Service June 19, 2022 Assessment & Plan (1) BPPV (benign paroxysmal positional vertigo): (2) Acute CVA (cerebrovascular accident): (3) Carotid artery plaque: Plan Suspected benign positional paroxysmal vertigo potentially localizing to the left inner ear. Agree with meclizine as prescribed. If symptoms persist consider PT/Ana M maneuvers. Incidentally discovered small subacute to acute punctate infarct within left frontal lobe centrum semiovale. No clinical signs or symptoms localizing to the left cerebral hemisphere. This tiny infarct may have been related to patient's cardiac catheterization or may have been present prior to her [facility] to [facility]. Mild to moderate plaque identified on carotid Doppler. Antegrade vertebral flow bilaterally. Given patient's persistent vertigo, and recently discovered stroke, it would be reasonable to obtain a CT angiogram of the head and neck. However, I do not strongly suspect an acute vertebral artery occlusion or dissection. Would continue with dual antiplatelet therapy for 3 weeks, then transition to Plavix monotherapy. Admission and Anticipated Discharge Date Admission Date: June 16, 2022 Subjective Follow-up for vertigo, dizziness, small subacute stroke The patient indicates that she was feeling well yesterday afternoon and evening. However, this morning, she experienced another episode of vertigo, worse with lying back, turning head to the left, some associated aural fullness and discomfort, more so on the left, no tinnitus. Episode may have been provoked by bending over sitting up and lying back. Complains of intermittent numbness, strange feeling affecting the left arm, no associated pain or weakness. Was given meclizine this morning to address vertigo. Denies headache, vision disturbance, change in speech or swallowing or focal weakness. Cardiology following regarding stress-induced cardiomyopathy, coronary artery disease, history of CABG x3. Incidentally discovered 6 mm acute to subacute appearing infarct within the left frontal lobe, centrum semiovale all depicted on brain MRI completed June 17, 2022. Moderate plaque within the right carotid bulb, mild plaque within the left carotid bulb identified on carotid Doppler. Had undergone cardiac catheterization the day prior. Patient had presented to the emergency department on June 16 with chest pain radiating into the left arm with associated dizziness. Had an elevated troponin. Patient's positional dizziness was also noted by Dr. [place] and his admission H&P with concern for possible BPPV. Review of Systems Eyes: no blind spots and no diplopia Ear, Nose, Mouth, Throat: as per Subjective / HPI; no ear pain and no tinnitus Neurologic: as per Subjective / HPI; no localized weakness and no headache(s) Results & Data ([facility]) Vital Signs (Past 12 Hours) Vital Signs Temp Pulse Pulse Resp BP Pulse Ox O2 Del Method 06/19/22 09:39 65 17 139/82 98 Room Air 06/19/22 07:20 36.8 C 62 18 136/67 97 Room Air 06/19/22 03:33 36.7 C 68 16 118/64 98 Room Air 06/18/22 22:30 67 06/18/22 23:18 36.9 C 63 16 122/71 98 Room Air Exam (Neuro) Neurologic: Oriented to:: Person, Place and Time Memory: Short Term Intact and Remote Intact Attention: Span Intact and Concentration Intact Speech Fluency: negative Dysarthria or Dysfluency Fund of Knowledge: Current Events, Past History and Vocabulary Cranial Nerves: Normal II, III, IV, , V, VII, VIII, IX, X, XI and XII Motor Strength: Normal Lower Extremities and Normal Upper Extremities Muscle Bulk/Involuntary Movements: No Involuntary Movements Sensation: Light Touch Intact Coordination: negative Dysdiadochokinesia, Finger-Nose Abnormal or Heel-Medeiros Abnormal Coding Level of Care Code 30861 Subseq Hosp Care Lvl 2 Diagnoses BPPV (benign paroxysmal positional vertigo) H81.10 Acute CVA (cerebrovascular accident) I63.9 Carotid artery plaque I65.29
[2022-06-19] MEDS ORDERED: NITROGLYCERIN SL 0.4 MG/TAB TAB SL STA (11:04)
[2022-06-19] MEDS ORDERED: NITROGLYCERIN SL 0.4 MG/TAB TAB ONE (11:06)
--- NOTE | 2022-06-19 11:12 | Hospitalist Progress Note ---
Date of Service June 19, 2022 Assessment & Plan (1) Stress-induced cardiomyopathy: Plan: Presented with dizziness followed by acute onset chest pain with radiation to left shoulder and numbness in LUE. Initial troponin was drawn only 15 minutes after onset of chest pain and was 53 and ECG initially with septal J-point elevation versus possible acute septal infarct. Subsequent troponin went up to 4224 and repeat ECG showed probable evolving septal infarction She was treated initially with aspirin, nitroglycerin, heparin drip, and started on metoprolol. Cardiology was consulted and she went for urgent cardiac catheterization after echocardiogram showed LVEF 35-40% with apical akinesis with severe hypokinesis to akinesis in the mid segment sparing the lateral wall, and mild concentric LVH with sigmoid septum, otherwise normal Cardiac catheterization showed chronic multivessel CAD, but no acute high risk CAD. Findings were most consistent with stress-induced cardiomyopathy. Troponin trended back downward She had no further chest pain for 2 days but continued to complain of ongoing fatigue which had been present for many weeks. Lyme negative, TSH is slightly low. 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 On AM of 06/19, had vague lightheadedness again, left sided jaw and ear pain, left forearm numbness, and milder chest pain. ECG with TWIs anterolaterally changed from previous, but fortunately troponin continuing to trend downward. Symptoms improved with SL NTG -discussed with Cardiology who thinks ECG changes c/w known CM, recommended starting Imdur 30mg po daily -Given dizziness, work-up for stroke ensued as below -No evidence of acute decompensation of heart failure-no need for diuretics -No evidence of cardiogenic shock or mention of LVOT obstruction -Started Toprol-XL 25 Mg p.o. once daily -continue home lisinopril 20 mg daily. Given that this will most likely be a transient cardiomyopathy, Entresto not needed -start Isosorbide 30mg po daily for intermittent angina (left jaw pain, left arm numbness) -Monitor on telemetry for arrhythmia-none so far, but has been complaining of palpitations prior to admission-will get 30 day event monitor after discharge -Appreciate cardiology management-we will need outpatient follow-up with echocardiogram repeated in the near future -Follow CBC, BMP, magnesium in the morning (2) Acute CVA (cerebrovascular accident): Plan: Given ongoing dizziness that preceded her chest pain event, and also description of possible amaurosis fugax, proceeded to get MRI of the brain MRI of the brain showing 6 mm left frontal lobe centrum semiovale acute versus subacute lacunar infarct Unclear if this tiny infarct is the cause of her dizziness, or is simply an incidental finding, however proceeded with secondary stroke work-up Carotid Doppler with bilat 0-50% stenosis CTA Head and neck performed on 06/19 for persistent dizziness and showed mild multifocal stenoses of posterior cerebral arteries Echocardiogram as above without thrombus -Continue to monitor for occult atrial fibrillation/flutter on telemetry and plan for 30-day event monitor after discharge -Hemoglobin A1c in the prediabetes range at 6.1% - lipid panel excellent but she is completely intolerant to all statins- given concurrent history of CAD, consideration could be given to PCSK9 inhibitors- defer as outpatient -Neuro checks -Neurology consult appreciated -added Plavix to her aspirin and plan for 3 weeks of DAPT followed by discontinuation of aspirin in favor of Plavix monotherapy after that on 07/08/22 -PT/OT consults placed given ongoing dizziness-recommend home health Dizziness thought to be secondary to BPPV as per Neuro--> trial of meclizine added, can do Nic's with PT (3) Urinary frequency: Plan: Has a history of overactive bladder and is on oxybutynin, however she feels it is worse than usual Checked UA and negative (4) Dizziness: Plan: as above, likely BPPV and not 2/2 CVA trial of meclizine (5) Arteriosclerotic coronary artery disease: Plan: 3vCABG in 2002. [address] Norton. Statin intolerant. - Continue ezetimibe -Continue aspirin, added on metoprolol, continue lisinopril Plavix and ASA x 3 weeks, then dc ASA and do monotherapy with Plavix starting 07/08/22 (6) HTN (hypertension): Plan: BPs are controlled - Continue home lisinopril and added on Toprol-XL added on Isosorbide for angina - Monitor (7) Hypothyroidism: Plan: TSH was 0.093 with elevated FT4 this admission. - Lower home Synthroid to 88 mcg daily (from home 100 mcg) - Recheck in 4-6 weeks (8) Seasonal allergies: Plan: - Continue cetirizine (9) Anxiety and depression: Plan: with fatigue ongoing for quite some time, may be related to depression but may be side effect of sertraline -consider changing to Celexa or another antidepressant that does not significantly interact with Plavix (10) Prediabetes: Plan: Hemoglobin A1c remains in the prediabetes range at 6.1% Not on medications for this Monitor as an outpatient (11) DVT prophylaxis: Plan: IV heparin since discontinued after cardiac catheterization continue Lovenox and SCDs Disposition-continued stay for angina, dizziness, but hopeful for dc to home tomorrow with home health All care discussed with daughter at bedside Spent a total of 90 minutes today in prolonged service with this patient Admission and Anticipated Discharge Date Admission Date: June 16, 2022 Subjective Pt seen on 3 occasions today. Initially seen in the AM and was walking out of the bathroom and c/o feeling lightheaded, just not quite right, and had an "irritating" sensation in her left jaw and left ear. She also then developed some numbness in her left forearm. Denied chest pain for me but later told the Logging Contractor she had some mild chest discomfort. Denied shortness of breath. ECG obtained which was showing TWIs in anterolateral leads changed from previous. Remained in NSR. Troponin checked and was 249. She was given SL NTG x2 and her symptoms all completely improved. I discussed her care with the Logging Contractor both on the phone and in person. I came back to check on her 2 more times throughout the day and discuss her results with her and her daughter at the bedside. Later in the day, she was OOB to chair and feeling much better. Now only c/o her usual dizziness that comes on with turning her head to the left. Tele with NSR, rates in the 60s Review of Systems Review of Systems: All systems reviewed & are unremarkable except as noted in HPI & below Physical Exam Constitutional: WD/WN, vitals as above Eyes: PERRL, conjunctivae normal, anicteric sclerae EOM intact bilaterally; no anisocoria and no nystagmus ENMT: external ear and nose normal, oropharynx normal Neck: trachea midline, no thyromegaly Respiratory: normal respiratory effort, lungs clear to auscultation Cardiovascular: RRR, no murmur, no edema Chest (Breasts): Chest: normal inspection of chest Gastrointestinal (Abdomen): normal bowel sounds, soft, nontender, no hepatosplenomegaly Musculoskeletal: Extremities: extremities normal to inspection; no cyanosis and no clubbing Skin: no rashes, warm and dry Neurologic: PERRL, EOMI, accommodation nl, no face palsy, no dysarthria CN's II-XI intact bilaterally, moves all extremities and awake; no focal motor deficits and not confused Speech / Cognition: normal speech Psychiatric: A+Ox3, euthymic affect Lymphatic: no lymphedema Results & Data Results & Data ([facility]) Vital Signs (Past 12 Hours) Vital Signs Temp Pulse Resp BP BP Pulse Ox O2 Del Method 06/19/22 11:04 36.6 C 58 L 16 132/76 96 Room Air 06/19/22 09:39 65 17 139/82 98 Room Air 06/19/22 07:20 36.8 C 62 18 136/67 97 Room Air 06/19/22 03:33 36.7 C 68 16 118/64 98 Room Air 06/18/22 23:18 36.9 C 63 16 122/71 98 Room Air Laboratory Results 06/19/22 06/19/22 06/19/22 Range/Units 16:30 15:04 11:19 Sodium (136-145) mmol/L Potassium (3.5-5.1) mmol/L Chloride (98-107) mmol/L Carbon Dioxide (21-32) mmol/L Anion Gap (3-11) BUN (6-23) mg/dl Creatinine (0.6-1.2) mg/dl Est Cr Clr Drug Dosing ml/min Est GFR ( Amer) ml/min Est GFR (Non-Af Amer) ml/min BUN/Creatinine Ratio (10-20) Glucose (70-99(Fasting)) mg/dl POC Glucose 94 (70-99) mg/dl Calcium (8.5-10.1) mg/dl Magnesium (1.7-2.4) mg/dl Troponin I High Sens 215.7 H* 249.2 H* D (0-14) pg/ml 06/19/22 06/19/2206/19/22 Range/Units 11:02 07:16 05:32 Sodium 134 L (136-145) mmol/L Potassium 3.9 (3.5-5.1) mmol/L Chloride 104 (98-107) mmol/L Carbon Dioxide 24 (21-32) mmol/L Anion Gap 6 (3-11) BUN 10 (6-23) mg/dl Creatinine 0.60 (0.6-1.2) mg/dl Est Cr Clr Drug Dosing 58.5 ml/min Est GFR ( Amer) 96.3 ml/min Est GFR (Non-Af Amer) 83.1 ml/min BUN/Creatinine Ratio 16.7 (10-20) Glucose 89 (70-99(Fasting)) mg/dl POC Glucose 96 98 (70-99) mg/dl Calcium 8.3 L (8.5-10.1) mg/dl Magnesium 1.8 (1.7-2.4) mg/dl Troponin I High Sens (0-14) pg/ml 06/18/22 Range/Units 20:06 Sodium (136-145) mmol/L Potassium (3.5-5.1) mmol/L Chloride (98-107) mmol/L Carbon Dioxide (21-32) mmol/L Anion Gap (3-11) BUN (6-23) mg/dl Creatinine (0.6-1.2) mg/dl Est Cr Clr Drug Dosing ml/min Est GFR ( Amer) ml/min Est GFR (Non-Af Amer) ml/min BUN/Creatinine Ratio (10-20) Glucose (70-99(Fasting)) mg/dl POC Glucose 153 H (70-99) mg/dl Calcium (8.5-10.1) mg/dl Magnesium (1.7-2.4) mg/dl Troponin I High Sens (0-14) pg/ml PG Care Time/CCT Total # of Minutes Spent Total Time Spent with Patient: Total time spent is greater than 50% in coordination of care (as documented) at patient's floor/unit and/or counseling patient: Prolonged Care Time Prolonged Care Time: Yes Total Prolonged Care Time: 90 90 min Coding Level of Care Code 98032 Subseq Hosp Care Lvl 3 (25 - SIGNIFICANT, SEPARATELY IDENTIFIABLE ) Diagnoses Stress-induced cardiomyopathy I51.81 Acute CVA (cerebrovascular accident) I63.9 Urinary frequency R35.0 Dizziness R42 Arteriosclerotic coronary artery disease I25.10 HTN (hypertension) I10 Hypertension type: unspecified Hypothyroidism E03.9 Seasonal allergies J30.2 Anxiety and depression F41.9; F32.9 Prediabetes R73.03 DVT prophylaxis Z29.9 Additional Codes Prolonged Care Time - Prolonged Care Time: Yes ([id number]) (1) HTN (hypertension) Hypertension type: unspecified Qualified Code(s): I10 - Essential (primary) hypertension
[2022-06-19] MEDS ORDERED: NITROGLYCERIN SL 0.4 MG/TAB TAB SL PRN (11:19)
--- NOTE | 2022-06-19 14:59 | Cardiology Progress Note ---
Date of Service June 19, 2022 Assessment & Plan (1) Stress-induced cardiomyopathy: (2) CAD (coronary artery disease): (3) History of coronary artery bypass graft: (4) HTN (hypertension): (5) Dyslipidemia: (6) Acute CVA (cerebrovascular accident): Plan ASSESSMENT/PLAN: 1. 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 Under a great deal of stress. Had symptoms this morning concerning for angina but improved with nitroglycerin. cardiac catheterization on 06/16/2022 did not suggest lesions severe enough for rest pain. Recommend isosorbide mononitrate 30 mg daily. ECG changes consistent with evolving ECG from cardiomyopathy. Continue metoprolol succinate and YINA- inhibitor. She appears euvolemic. Titrate medical therapy as appropriate. Would expect recovery of her LV systolic function. 2. CAD s/p CABG: Angina as above. Based on catheterization and echo findings, presentation with peak troponin of 4224, most consistent with stress-induced cardiomyopathy. Continue anti-platelet therapy, beta-dillon, lipid management. Has not tolerated statin therapy. Currently on Zetia. Addition of nitrate therapy as noted above. 3. Hypertension: Blood pressure well controlled. Continue medications as noted. 4. Dyslipidemia: Reported intolerance to statin therapy. On Zetia. Goal LDL < 70. 5. Stroke: As per Neurology. 6. Disposition: Follow-up with Dr. Norton on discharge. Consider cardiac rehab. Patient care discussed with Dr. Vinson of the primary hospitalist service. Admission and Anticipated Discharge Date Admission Date: June 16, [address] Vinson earlier today due to jaw discomfort and ECG changes. She was seen earlier this afternoon and reports that she had a funny feeling across her chest earlier this morning but it resolved quite quickly. She also developed a discomfort in her ears, jaw, which was described as a tight or funny feeling. It also occurred in her distal left upper extremity. The symptoms occurred while she was in bed. She took nitroglycerin x1 with resolution of her ear sensation and then a second nitroglycerin which resolved her jaw / facial discomfort. When she got up to use the restroom this morning and was bending over to dress herself, she developed a spinning sensation described as a dizziness. It is worse when she lays flat and better when she is upright. She denies any further chest discomfort, shortness of breath, palpitations, syncope, edema, or bleeding. She discussed at length the amount of stress that she is under. Her [id number] in [place] was diagnosed with terminal cancer. Her a few months ago and had significant dementia. She has sold her home and misses her home and garden. she is currently living with her daughter. Review of systems: As above. She was alone in her hospital room. Physical Exam Physical Exam: Gen.: No acute distress. Alert. HEENT: Anicteric sclera. Neck: No JVD or hepatic jugular reflux. Cardiac: No ventricular heave. Regular. Normal S1-S2. 1/6 systolic murmur. No rubs or gallops. Pulmonary: Clear to auscultation bilaterally without wheezes, rales, or rhonchi. Abdomen: Soft, nontender, nondistended, with normoactive bowel sounds. No bruits noted. Extremities: 2+ radial pulses bilaterally. 2+ posterior tibialis pulses bilaterally. No edema or cyanosis. Psychiatric: Affect appears appropriate. Results & Data ([facility]) Vital Signs (Past 12 Hours) Vital Signs Temp Pulse Pulse Resp BP BP Pulse Ox 06/19/22 08:00 62 06/19/22 11:21 64 132/70 06/19/22 11:04 36.6 C 58 L 16 132/76 96 06/19/22 09:39 65 17 139/82 98 06/19/22 07:20 36.8 C 62 18 136/67 97 06/19/22 03:33 36.7 C 68 16 118/64 98 O2 Del Method 06/19/22 08:00 06/19/22 11:21 06/19/22 11:04 Room Air 06/19/22 09:39 Room Air 06/19/22 07:20 Room Air 06/19/22 03:33 Room Air Intake & Output 06/17/22 06/18/22 06/19/22 06/20/22 06:59 06:59 06:59 06:59 Intake Total 240 / 240 580 / 580 1240 / 1240 Output Total 400 / 400 Balance 240 / 240 580 / 580 840 / 840 Weight 147 lb 7.828 oz 147 lb 7.828 oz Laboratory Results Laboratory Results - last 24 hr 06/18/22 06/18/2206/19/22 16:41 20:06 05:32 Sodium 134 L Potassium 3.9 Chloride 104 Carbon Dioxide 24 Anion Gap 6 BUN 10 Creatinine 0.60 Est Cr Clr Drug Dosing 58.5 Est GFR ( Amer) 96.3 Est GFR (Non-Af Amer) 83.1 BUN/Creatinine Ratio 16.7 Glucose 89 POC Glucose 76 153 H Calcium 8.3 L Magnesium 1.8 Troponin I High Sens 06/19/22 06/19/22 06/19/22 07:16 11:02 11:19 Sodium Potassium Chloride Carbon Dioxide Anion Gap BUN Creatinine Est Cr Clr Drug Dosing Est GFR ( Amer) Est GFR (Non-Af Amer) BUN/Creatinine Ratio Glucose POC Glucose 98 96 Calcium Magnesium Troponin I High Sens 249.2 H* D Diagnostic Findings Telemetry personally reviewed: Sinus rhythm. No arrhythmia. ECGs personally reviewed: ECG 06/19/2022 at 11:52 a.m.: Sinus bradycardia 58 bpm. Anterior and lateral T-wave inversion. ECG 06/19/2022 at 10:00 a.m.: Sinus rhythm 63 bpm. Anterolateral T-wave inversion. Lateral T-wave inversion. Echo 06/16/2022: EF 35-40%. Apical akinesis with severe hypokinesis to akinesis of the mid segments, sparing the lateral wall. No significant valvular pathology. Normal PA SP. Medications Administered Current Inpatient Medications Acetaminophen (Acetaminophen 325 Mg Tab) 650 mg PO Q4H PRN PRN Reason: pain/fever Stop: 07/16/22 16:50 Last Admin: 06/17/22 09:47 Dose: 650 mg Aspirin (Aspirin 81 Mg Ectab) [facility] [place]: 07/17/22 08:59 Last Admin: 06/19/22 08:32 Dose: 81 mg Cetirizine HCl (Cetirizine Hcl 10 Mg Tablet) 10 mg PO DAILY [facility] Stop: 07/17/22 08:59 Last Admin: 06/19/22 08:32 Dose: 10 mg Clopidogrel Bisulfate (Clopidogrel Bisulfate 75 Mg Tab) 75 mg PO QAM [facility] Stop: 07/17/22 16:59 Last Admin: 06/19/22 08:32 Dose: 75 mg Dextrose (Dextrose 50% 50 Ml Syringe) 25 - 50 ml IV UD PRN; Protocol PRN Reason: Hypoglycemia Protocol Stop: 07/16/22 16:50 Ezetimibe (Ezetimibe 10 Mg Tablet) 10 mg PO DAILY [facility] Stop: 07/17/22 08:59 Last Admin: 06/19/22 08:32 Dose: 10 mg Enoxaparin Sodium (Enoxaparin Inj 40 Mg/0.4 Ml Syr) 40 mg SQ QAM [facility] Stop: 07/17/22 16:59 Last Admin: 06/19/22 08:47 Dose: 40 mg Glucagon (Glucagon For Inj 1 Mg Vial) 1 mg SQ UD PRN; Protocol PRN Reason: Hypoglycemia Protocol Stop: 07/16/22 16:50 Glucose (Glucose 40% Gel 15 Gm Tube) 15 - 30 gm PO UD PRN; Protocol PRN Reason: Hypoglycemia Protocol Stop: 07/16/22 16:50 Glucose (Glucose 10 Tab/Tube) 4 - 8 tab PO UD PRN; Protocol PRN Reason: Hypoglycemia Treatment Stop: 07/16/22 16:50 Insulin Aspart (Insulin Aspart Per Unit) 0 units SC ACHS [facility] Stop: 07/16/22 16:50 Last Admin: 06/19/22 12:23 Dose: Not Given Isosorbide Mononitrate (Isosorbide Pettis Extended Rel 30 Mg Tabcr) 30 mg PO QAM [facility] Stop: 07/19/22 13:29 Levothyroxine Sodium (Levothyroxine Sodium 88 Mcg Tablet) 88 mcg PO DAILYBB [facility] Stop: 07/18/22 06:29 Last Admin: 06/19/22 05:46 Dose: 88 mcg Lidocaine (Lidocaine 5% 1 Patch) 2 patch TD HS [facility] Stop: 07/16/22 20:59 Last Admin: 06/18/22 20:27 Dose: 2 patch Lisinopril (Lisinopril 20 Mg Tab) 20 mg PO QAM [facility] Stop: 07/18/22 08:59 Last Admin: 06/19/22 08:33 Dose: 20 mg Meclizine HCl (Meclizine 12.5 Mg Tab) 12.5 mg PO TID PRN PRN Reason: dizziness Stop: 07/18/22 09:27 Melatonin (Melatonin 3 Mg Tab) 3 mg PO HS PRN PRN Reason: Sleep Stop: 07/18/22 00:08 Metoprolol Succinate (Metoprolol Succ 25mg Ext Rel Tab) 25 mg PO QAM [facility] Stop: 07/17/22 08:59 Last Admin: 06/19/22 08:34 Dose: 25 mg Miscellaneous (Carbohydrates For Hypoglycemia ) 15 - 30 gm PO UD PRN PRN Reason: Hypoglycemia Protocol Stop: 07/16/22 16:50 Miscellaneous (Remove Lidoderm Patch) 1 each N/A DAILY [facility] Stop: 07/17/22 08:59 Last Admin: 06/19/22 08:49 Dose: 1 each Miscellaneous Information (Pharmacist Discharge Med Rec Consult) 1 each N/A UD PRN PRN Reason: Consult Stop: 07/17/22 16:53 Nitroglycerin (Nitroglycerin Sl 0.4 Mg/Tab Tab) 0.4 mg SL PRN PRN PRN Reason: Chest Pain Stop: 07/19/22 11:18 Ondansetron HCl (Ondansetron Inj 2 Mg/Ml 2 Ml Vial) 4 mg IV Q4H PRN PRN Reason: Nausea Stop: 07/16/22 16:50 Oxybutynin Chloride (Oxybutynin Chloride Xl 5 Mg Tabcr) 5 mg PO DAILY [facility] Stop: 07/17/22 08:59 Last Admin: 06/19/22 08:33 Dose: 5 mg Pantoprazole Sodium (Pantoprazole 40 Mg Tab) 40 mg PO DAILY [facility]; Protocol Stop: 07/17/22 08:59 Last Admin: 06/19/22 08:32 Dose: 40 mg Sertraline HCl (Sertraline Hcl 50 Mg Tablet) 25 mg PO DAILY [facility] Stop: 07/17/22 08:59 Last Admin: 06/19/22 08:34 Dose: 25 mg PG Care Time/CCT Total # of Minutes Spent Total Time Spent with Patient: Total time spent is greater than 50% in coordination of care (as documented) at patient's floor/unit and/or counseling patient: Coding Level of Care Code 03731 Subseq Hosp Care Lvl 3 Diagnoses Stress-induced cardiomyopathy I51.81 CAD (coronary artery disease) I25.10 History of coronary artery bypass graft Z95.1 HTN (hypertension) I10 Hypertension type: unspecified Dyslipidemia E78.5 Acute CVA (cerebrovascular accident) I63.9 (1) HTN (hypertension) Hypertension type: unspecified Qualified Code(s): I10 - Essential (primary) hypertension
[2022-06-19] MEDS: ISOSORBIDE MONO EXTENDED REL 30 MG TABCR PO SCH (16:30)
--- NOTE | 2022-06-19 17:50 | CT Scan Report ---
CT head/brain wo con, CT angio neck with con, CT angio head w con CLINICAL HISTORY: 87 years-old Female with f/u CVA. Acute strokelike symptoms with vertigo TECHNIQUE: Multiple axial CT images of the head were obtained without contrast. CTA head and neck was also obtained following the intravenous administration of 118 mL Optiray 320. All measurements were obtained according to NASCET criteria. 3-D coronal and sagittal MIPS were obtained and submitted for review. A dose lowering technique was utilized adhering to the principles of ALARA. CT DOSE: 991.57 mGy.cm COMPARISON: Brain MRI 06/17/2022. FINDINGS: CT HEAD: No acute intracranial hemorrhage, midline shift, intracranial mass, hydrocephalus, territorial ischem ia or abnormal extra-axial collection. Involutional changes. White matter hypodensities suggest chron ic microvascular ischemic disease. Cerebral vascular calcifications. The recently described tiny acut e versus subacute left frontal lobe infarct is not visualized by CT. The calvarium is intact. Prior bilateral lens repair The paranasal sinuses, mastoid air cells, and mi ddle ear cavities are clear. CTA HEAD AND NECK: Prior median sternotomy. Atherosclerosis of the thoracic aortic arch which demonstrates a four-vessel morphology. There is patency of the innominate and imaged subclavian arteries. The common carotid ar teries are patent. There is moderate atherosclerosis of the carotid bulbs, right greater than left an d proximal cervical segments of the internal carotid arteries. There is less than 50% stenosis involv ing the proximal cervical segments of the internal carotid arteries. Additional calcifications are no david involving the cavernous, clinoid and supraclinoid segments without high-grade stenosis. The middl e and anterior cerebral arteries are patent. Codominant and patent vertebral arteries. Atheroscleroti c plaque of the V4 segments resulting in less than 50% luminal narrowing. The basilar artery is paten t. Multifocal less than 50% stenosis involves the bilateral posterior cerebral arteries. Cerebral marielle ous sinuses are patent. No abnormal intracranial enhancement. There are a a few tiny solid nodules noted within the lung apices measuring up to 3 mm which are favo red to be benign. Unremarkable soft tissues. Degenerative changes of the cervical spine. IMPRESSION: 1. No acute intracranial abnormality. 2. The recently described subcentimeter acute versus subacute left frontal lobe lacunar infarct is no t visualized by CT. 3. No aneurysm, dissection, high-grade stenosis or arterial occlusion. 4. Atherosclerotic plaque of the right greater than left carotid bulbs results in less than 50% steno sis bilaterally. 5. Mild multifocal stenosis of the posterior cerebral arteries. ACT 112: Negative or not required by law. The above report was generated using voice recognition software. It may contain grammatical, syntax o r spelling errors. Electronically signed by: Donald Stovall M.D. 06/19/2022 5:48 PM
[2022-06-19] MEDS: LIDOCAINE 5% 1 PATCH TD SCH (20:20)
[2022-06-20] MEDS: LEVOTHYROXINE SODIUM 88 MCG TABLET PO SCH (05:51)
[2022-06-20 07:01] LABS: Basophils # (auto) 0.03 K/uL (0-0.2); Basophils % (auto) 0.6 %; Eosinophils # (auto) 0.22 K/uL (0-0.50); Eosinophils % (auto) 4.6 %; Hematocrit (blood only) 34.9 % (34.1-44.9); Hemoglobin 11.9 g/dl (12.0-16.0); Immature Granulocytes # (auto) 0.01 K/uL (0.00-0.02); Immature Granulocytes % (auto) 0.2 %; Lymphocytes # (auto) 1.48 K/uL (1.2-3.4); Lymphocytes % (auto) 30.8 %; Mean Corpuscular Hemoglobin 30.3 pg (25.0-34.0); Mean Corpuscular Hgb Conc 34.1 g/dL (32.0-36.0); Mean Corpuscular Volume 88.8 fL (80.0-100.0); Mean Platelet Volume 9.3 fL (9.4-12.3); Monocytes # (auto) 0.63 K/uL (0.24-0.82); Monocytes % (auto) 13.1 %; Neutrophils # (auto) 2.44 K/uL (1.4-6.5); Neutrophils % (auto) 50.7 %; Platelet Count 288 K/uL (130-400); RDW Coefficient of Variation 13.6 % (11.5-14.5); RDW Standard Deviation 44.3 fL (36.4-46.3); Red Blood Count 3.93 M/uL (3.93-5.22); White Blood Count 4.81 K/ul (4.8-10.8)
[2022-06-20 07:44] LABS: BUN Creatinine Ratio 17.5 (10-20); Calcium 8.5 mg/dl (8.5-10.1); Est GFR (African American) 94.8 ml/min; Est GFR (Non-African American) 81.8 ml/min; Magnesium 1.7 mg/dl (1.7-2.4); Potassium 4.1 mmol/L (3.5-5.1)
[2022-06-20] MEDS: CETIRIZINE HCL 10 MG TABLET PO SCH (08:16)
[2022-06-20] MEDS: OXYBUTYNIN CHLORIDE XL 5 MG TABCR PO SCH (08:16)
[2022-06-20] MEDS: CLOPIDOGREL BISULFATE 75 MG TAB PO SCH (08:16)
[2022-06-20] MEDS: ASPIRIN 81 MG ECTAB PO SCH (08:16)
[2022-06-20] MEDS: lisinopril 20 MG TAB PO SCH (08:16)
[2022-06-20] MEDS: ISOSORBIDE MONO EXTENDED REL 30 MG TABCR PO SCH (08:16)
[2022-06-20] MEDS: EZETIMIBE 10 MG TABLET PO SCH (08:17)
[2022-06-20] MEDS: ENOXAPARIN INJ 40 MG/0.4 ML SYR SQ SCH (08:17)
[2022-06-20] MEDS: METOPROLOL SUCC 25MG EXT REL TAB PO SCH (08:17)
[2022-06-20] MEDS: PANTOprazole 40 MG TAB PO SCH (08:17)
[2022-06-20] MEDS: SERTRALINE HCL 50 MG TABLET PO SCH (08:17)
[2022-06-20] MEDS: INSULIN ASPART PER UNIT SC SCH ×2 (08:18→11:43)
[2022-06-20] MEDS ORDERED: STROKE PATIENT DISCHARGE STA (10:28)
--- NOTE | 2022-06-20 10:31 | Discharge Summary ---
Date of Service June 20, 2022 Admission HPI Per Admitting Provider 87yo F w/ hx of CAD s/p 3vCABG in 2002 who presents for chest pain. Was in her normal state of health last night when she went to bed. Woke up at 5:30 to go to the bathroom, and was fine, but when she lay down, she had acute onset of dizziness/vertigo. She lay there until 7:30, when she got up again. The dizziness was bad enough that she fell into the sink (but did not strike her head or chest). She caught herself with her arms. She got back to bed, but the dizziness was worse with lying down, so she just sat on the edge of the bed for nearly 1 hour. Around that time, her left arm became a little numb. This has occurred in the past (but with the arms and legs at the same time). She came downstairs and got some coffee and toast. She went back upstairs, but because she just didn't feel right, she decided to call an ambulance. In the ambulance, she had acute onset of chest pain under the sternal and toward the left chest and shoulder. She describes the pain as a tightness without any alleviating factors. She also became profoundly nauseated and threw up. She denies shortness of breath, abdominal pain, diaphoresis. She notes increasing anginal symptoms over the last month or so where when she walks up a flight of stairs with increasing shortness of breath and palpitations that resolve with rest. Principal Diagnosis Stress-induced cardiomyopathy, Acute CVA, Vertigo Discharge Exam Constitutional WD/WN, vitals as above Eyes PERRL, conjunctivae normal, anicteric sclerae EOM intact bilaterally; no anisocoria and no nystagmus ENMT external ear and nose normal, oropharynx normal Neck trachea midline, no thyromegaly Respiratory normal respiratory effort, lungs clear to auscultation Cardiovascular RRR, no murmur, no edema Chest (Breasts) Chest: normal inspection of chest Gastrointestinal (Abdomen) normal bowel sounds, soft, nontender, no hepatosplenomegaly Musculoskeletal Extremities: extremities normal to inspection; no cyanosis and no clubbing Skin no rashes, warm and dry Neurologic PERRL, EOMI, accommodation nl, no face palsy, no dysarthria CN's II-XI intact bilaterally, moves all extremities and awake; no focal motor deficits and not confused Speech / Cognition: normal speech Psychiatric A+Ox3, euthymic affect Lymphatic no lymphedema Discharge Data Allergies Allergy/AdvReac Type Severity Reaction Status Date / Time ciprofloxacin [From Cipro] Allergy Mild nauseated Verified 06/16/22 14:54 furosemide [From Lasix] Allergy Unknown Unknown Verified 06/16/22 14:54 hydrochlorothiazide Allergy Unknown Unknown Verified 06/16/22 14:54 nitrofurantoin Allergy Unknown Unknown Verified 06/16/22 14:54 [From Macrobid] codeine AdvReac Severe CHEST PAIN Verified 06/16/22 14:54 felodipine [From Plendil] AdvReac Mild NON Verified 06/16/22 14:54 TOLERANT oxycodone [From Percocet] AdvReac Mild NON Verified 06/16/22 14:54 TOLERANT pravastatin [From Pravachol] AdvReac Mild MYALGIAS Verified 06/16/22 14:54 simvastatin [From Zocor] AdvReac Mild MYALGIAS Verified 06/16/22 14:54 Waflinc-IRL-OhU Reductase AdvReac Mild Muscle Verified 06/16/22 14:54 Inhibitor aches and [Vzmrcjy-Nbz-Ofx Reductase cramping. Inhibitor] theophylline [From Silas-Dur] AdvReac Mild NON Verified 06/16/22 14:54 TOLERANT Consultations 06/16/22 14:08 ED Decision to Admit Stat 06/16/22 16:51 Consult Cardiology Routine 06/17/22 16:54 Consult Neurology Routine Procedures Performed Operation Date: 06/16/22 15:20 Actual Procedures s Cineradiography w/Routine Exam - Anurag Lazo MD p Cath, Left w/Cors Vent Grafts - Anurag Lazo MD Ordered Studies 06/16/22 15:19 CL Cath Imgs for PACS use only Stat 06/17/22 10:44 MR brain wo con Urgent 06/17/22 16:56 US carotid doppler BI Routine 06/19/22 10:45 CTA head w con [CT angio head w con] Routine CTA neck with con [CT angio neck with con] Routine 06/19/22 15:56 CT head/brain wo con Routine ECHO Hospital Course (1) Stress-induced cardiomyopathy: Presented with dizziness followed by acute onset chest pain with radiation to left shoulder and numbness in LUE. Initial troponin was drawn only 15 minutes after onset of chest pain and was 53 and ECG initially with septal J-point elevation versus possible acute septal infarct. Subsequent troponin went up to 4224 and repeat ECG showed probable evolving septal infarction She was treated initially with aspirin, nitroglycerin, heparin drip, and started on metoprolol. Cardiology was consulted and she went for urgent cardiac catheterization after echocardiogram showed LVEF 35-40% with apical akinesis with severe hypokinesis to akinesis in the mid segment sparing the lateral wall, and mild concentric LVH with sigmoid septum, otherwise normal Cardiac catheterization showed chronic multivessel CAD, but no acute high risk CAD. Findings were most consistent with stress-induced cardiomyopathy. Troponin trended back downward She had no further chest pain for 2 days but continued to complain of ongoing fatigue which had been present for many weeks. Lyme negative, TSH is slightly low. 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 On AM of 06/19, had vague lightheadedness again, left sided jaw and ear pain, left forearm numbness, and milder chest pain. ECG with TWIs anterolaterally changed from previous, but fortunately troponin continuing to trend downward. Symptoms improved with SL NTG -discussed with Cardiology who thinks ECG changes c/w known CM, recommended starting Imdur 30mg po daily and she had no further angina after that -Given dizziness, work-up for stroke ensued as below -No evidence of acute decompensation of heart failure-no need for diuretics -No evidence of cardiogenic shock or mention of LVOT obstruction -Started Toprol-XL 25 Mg p.o. once daily -continue home lisinopril 20 mg daily. Given that this will most likely be a transient cardiomyopathy, Entresto not needed -started Isosorbide 30mg po daily for intermittent angina (left jaw pain, left arm numbness) -Monitor on telemetry for arrhythmias-none so far, but has been complaining of palpitations prior to admission-will get 30 day event monitor after discharge-Rx has been sent for this to Cardiology office -Appreciate cardiology management-we will need outpatient follow-up with echocardiogram repeated in the near future (2) Acute CVA (cerebrovascular accident): Given ongoing dizziness that preceded her chest pain event, and also description of possible amaurosis fugax, proceeded to get MRI of the brain MRI of the brain showing 6 mm left frontal lobe centrum semiovale acute versus subacute lacunar infarct Unclear if this tiny infarct is the cause of her dizziness, or is simply an incidental finding, however proceeded with secondary stroke work-up Carotid Doppler with bilat 0-50% stenosis CTA Head and neck performed on 06/19 for persistent dizziness and showed mild multifocal stenoses of posterior cerebral arteries Echocardiogram as above without thrombus -Continue to monitor for occult atrial fibrillation/flutter on telemetry and plan for 30-day event monitor after discharge -Hemoglobin A1c in the prediabetes range at 6.1% - lipid panel excellent but she is completely intolerant to all statins- given concurrent history of CAD, consideration could be given to PCSK9 inhibitors- defer as outpatient -Neurology consult appreciated -added Plavix to her aspirin and plan for 3 weeks of DAPT followed by discontinuation of aspirin in favor of Plavix monotherapy after that on 07/08/22 -PT/OT consults placed given ongoing dizziness-recommend home health Dizziness thought to be secondary to BPPV as per Neuro--> trial of meclizine ad ded, can do Nic's with PT (3) Urinary frequency: Has a history of overactive bladder and is on oxybutynin, however she feels it is worse than usual Checked UA and negative (4) Dizziness: as above, likely BPPV and not 2/2 CVA trial of meclizine (5) Arteriosclerotic coronary artery disease: 3vCABG in 2002. Follows with Dr. Norton. Statin intolerant. - Continue ezetimibe -Continue aspirin, added on metoprolol, continue lisinopril Plavix and ASA x 3 weeks, then dc ASA and do monotherapy with Plavix starting 07/08/22 (6) HTN (hypertension): BPs are controlled - Continue home lisinopril and added on Toprol-XL added on Isosorbide for angina - Monitor (7) Hypothyroidism: TSH was 0.093 with elevated FT4 this admission. - Lower home Synthroid to 88 mcg daily (from home 100 mcg) but may need to alternate 100/88 - Recheck in 4-6 weeks (8) Seasonal allergies: - Continue cetirizine (9) Anxiety and depression: with fatigue ongoing for quite some time, may be related to depression but may be side effect of sertraline -consider changing to Celexa or another antidepressant that does not significantly interact with Plavix -pt desires to stop ZOloft--> advised to wean off by going to 25mg every other day x 1 week, then STOP f/u PCP (10) Prediabetes: Hemoglobin A1c remains in the prediabetes range at 6.1% Not on medications for this Monitor as an outpatient (11) DVT prophylaxis: IV heparin since discontinued after cardiac catheterization continue Lovenox and SCDs Disposition-dc to home with home health Home Health Attestation I certify that this patient is under my care and that I, or a physicians field research assistant working with me, had a face to-face encounter that meets the home health [id number] encounter requirements with this patient. The encounter with the patient was in whole, or in part, for the following medical condition, which is the primary reason for home health care (list medical condition): CVA I certify that, based on my findings, the following services are medically necessary home health services: My clinical findings support the need for the above services because: OT Assess ADL Status and Restore Function w ADLs Skilled Nsg Assessment Further, I certify that my clinical findings support that this patient is homebound (i.e. absences from home require considerable and taxing effort and are for medical reasons or oriental orthodox services or infrequently or of short duration when for other reasons) because: Transportation Assistance/Unable to Leave Home Unassisted Certification for Home Health Services: Based on the above findings, I certify that this patient is confined to the home and needs intermittent long term care, physical therapy and/or speech therapy or continues to need occupational therapy. The patient is under my care, and I have initiated the establishment of the plan of care. This patient will be followed by a physician who will periodically review the plan of care. 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 You have what is called a Stress-induced cardiomyopathy. You had some medications added on to manage this condition and hopefully this will resolve over he next month. As we discussed, we will taper you off your sertraline (Zoloft) and you can discuss with your PCP about the possibility of starting a different medication for depression in the future. You were also found to have a small stroke on the left side of your brain. You were started on Plavix for this as a blood thinner to prevent future strokes. Please continue taking your aspirin for 3 more weeks, but then STOP the aspirin and ONLY continue on the Plavix. You also have dizziness with looking to the left and lying flat. This is from vertigo and you can take meclizine as needed for this. Your thyroid medication was reduced in dose to 88 mcg daily as your thyroid function was a bit overactive, however, you may end up needing an alternating do se of 88 mcg and 100 mcg moving forward. Please talk to your PCP about this. Your Omeprazole interacts with your Plavix so therefore Protonix will be prescribed INSTEAD of Omeprazole. It was a pleasure taking care of you! I will keep you in my prayers, Svetlana Vinson M.D. Home Care: * Take your medications exactly as directed. Don't skip doses. * Remember that recovery after a heart attack takes time. Plan to rest for at lease 4-8 weeks while you recover. Then return to normal activity when your doctor says it's okay. * Ask your doctor about joining a heart rehabilitation program. * Tell your doctor if you are feeling depressed. Feelings of sadness are common after a heart attack, but it is important that you speak to someone if you are feeling overwhelmed by these feelings. * If you are having chest pain, call 911 for an ambulance. Do NOT drive yourself to the hospital. * Ask your family members to learn CPR. * Learn to take your own blood pressure and pulse. Keep a record of your results. Ask your doctor when you should seek emergency medical attention. He or she will tell you which blood pressure reading is dangerous. Lifestyle Changes: * Maintain a healthy weight. Get help to lose any extra pounds. * Cut back on salt. * Limit canned, dried, packaged, and fast foods. * Don't add salt to your food. * Season foods with herbs instead of salt when you cook. * Break the smoking habit. Enroll in a stop-smoking program to improve your chances of success. * Limit fatty foods. * Ask your doctor about having your lipid levels checked regularly. * Build up your activity according to your doctor's recommendation. * Ask your doctor when it's okay to resume sexual activity. * Tell your doctor about any erectile dysfunction (ED) medication you are taking. Some ED medications are not safe if you take certain heart medications. * Try to manage stress. Follow Up: It is important for you to keep your follow up appointments with your medical provider. Risk Factors for Stroke: You can reduce your chances of stroke by working with your medical provider to adopt a healthy lifestyle. Some specific ways to lower your chance of stroke are: * If you are a smoker, now is the time to stop smoking cigarettes * If you are diabetic, improve the control of your blood sugars * Avoid excessive amounts of alcohol * Control high blood pressure * Lose weight if you are overweight * Be sure to lead an active lifestyle * Eat a healthy diet low in salt, cholesterol and fat You should know about other risk factors for stroke that you are unable to control. These include: * Age 55 years or older * Male gender * Certain racial groups: , or / * Family History of Stroke, Mini stroke or Heart Attack * Sickle Cell Disease Follow Up: It is important for you to keep your follow up appointments with your medical provider. Who to Call and When: Medical Emergencies: Call 911 immediately if you experience any of the following warning signs and symptoms of Stroke: * Sudden numbness or weakness of the face, arm or leg, especially on one side of the body * Sudden confusion, trouble speaking or understanding * Sudden trouble seeing in one or both eyes * Sudden trouble walking, dizziness, loss of balance or coordination * Sudden severe headache with no cause Do not delay calling 911 if you experience any warning signs or symptoms of a s troke. Delay in seeking medical attention may affect what treatments can be given to you. . Pending Studies at Discharge: No Stand-Alone Forms: Medications to Prevent Stroke, My [facility] Medications and DC Order Prescriptions: New isosorbide mononitrate 30 mg Tablet Extended Release 24 Hr 30 mg PO QAM Qty: 30 0RF metoprolol succinate 25 mg Tablet Extended Release 24 Hr 25 mg PO QAM Qty: 30 0RF meclizine 12.5 mg Tablet 12.5 mg PO TID PRN (Reason: dizziness) Qty: 15 0RF levothyroxine [Synthroid] 88 mcg Tablet 88 mcg PO DAILYBB Qty: 30 0RF pantoprazole 40 mg Tablet,Delayed Release (Dr/Ec) 40 mg PO DAILY Qty: 30 0RF clopidogrel 75 mg Tablet 75 mg PO QAM Qty: 30 0RF Continued nitroglycerin [Nitrostat] 0.4 mg tablet, sublingual 0.4 mg SL UD PRN (Reason: Chest Pain) Label Comments: 0.4 mg SL DISSOLVE 1 TABLET UNDER THE TONGUE NEEDED FOR CHEST PAIN PRN; Rx Instructions: 0.4 mg SL DISSOLVE 1 TABLET UNDER THE TONGUE NEEDED FOR CHEST PAIN PRN; calcium carb and citrate-vitD3 [Citracal-D3 Slow Release] 600 mg calcium- 500 unit tablet extended release 1 tab PO BID Qty: 60 0RF (DME) Blood Glucose Test Strip See Rx Instructions .ROUTE .MEDSUPPLY Qty: 100 1RF Rx Instructions: As directed. Testing BS daily. Dx: E11.9 (DME) blood-glucose meter [Blood Glucose Monitoring] Kit See Rx Instructions .ROUTE .MEDSUPPLY Qty: 1 0RF Rx Instructions: As directed Testing BS daily. Dx: E11.9 cetirizine [Zyrtec] 10 mg tablet 10 mg PO DAILY Qty: 30 5RF lisinopril 20 mg tablet 20 mg PO QAM Qty: 90 1RF oxybutynin chloride 5 mg tablet extended release 24 hr 5 mg PO DAILY Qty: 30 5RF cholecalciferol (vitamin D3) 5,000 unit capsule 5,000 units PO QAM (DME) lancets [[place] 1 Lancets] 26 gauge misc See Dose Instructions .ROUTE .MEDSUPPLY Qty: 50 Rx Instructions: Testing twice daily biotin 10 mg tablet 10 mg PO QAM ezetimibe 10 mg tablet 10 mg PO DAILY aspirin 81 mg tablet,delayed release (DR/EC) 81 mg PO QAM 21 Days Qty: 0 0RF Changed sertraline 25 mg tablet 25 mg PO Q2D 7 Days Qty: 4 0RF Rx Instructions: x 1 week, then STOP Discontinued levothyroxine [Synthroid] 100 mcg tablet 100 mcg PO DAILY Qty: 30 1RF Rx Instructions: brand name only omeprazole 20 mg capsule,delayed release(DR/EC) 20 mg PO DAILY Discharge Orders: Discharge Order (Routine); Ordered 06/20/22 Ordered By: Svetlana Joaquin/Other Patient Handouts: A1C Admission Data Admit Date/Time: 06/16/22 14:44 Attending Provider: Svetlana Vinson Admit Provider: Leonard Cuba Primary Care Provider: Candice Gonzalez Other Providers: Leonard Cuba ; Rubens Soriano ; Alejo Prince ; Seun Merlos [facility] Other Interventions: Discharge Summary Assessment (RN) Last Done: 06/20/22 10:14 Coding Level of Care Code D/C DAY MANAGEMENT >30 MINS Diagnoses Stress-induced cardiomyopathy I51.81 Acute CVA (cerebrovascular accident) I63.9 Urinary frequency R35.0 Dizziness R42 Arteriosclerotic coronary artery disease I25.10 HTN (hypertension) I10 Hypertension type: unspecified Hypothyroidism E03.9 Seasonal allergies J30.2 Anxiety and depression F41.9; F32.9 Prediabetes R73.03 DVT prophylaxis Z29.9
--- NOTE | 2022-06-20 11:15 | Cardiology Progress Note ---
Date of Service June 20, 2022 Assessment & Plan (1) Stress-induced cardiomyopathy: (2) CAD (coronary artery disease): (3) History of coronary artery bypass graft: (4) HTN (hypertension): (5) Dyslipidemia: (6) Acute CVA (cerebrovascular accident): Plan ASSESSMENT/PLAN: 1. 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 Under a great deal of stress. No further anginal symptoms on isosorbide mononitrate, which was initiated yesterday. Cardiac catheterization on 06/16/2022 did not suggest lesions severe enough for rest pain. ECG changes consistent with evolving ECG from cardiomyopathy. Continue metoprolol succinate and YINA-inhibitor. She appears euvolemic. Titrate medical therapy as appropriate. Would expect recovery of her LV systolic function. 2. CAD s/p CABG: Angina as above. Based on catheterization and echo findings, presentation with peak troponin of 4224, most consistent with stress-induced cardiomyopathy. Continue anti-platelet therapy, beta-dillon, lipid management. Has not tolerated statin therapy. Currently on Zetia. Addition of nitrate therapy as noted above. 3. Hypertension: Blood pressure remains well controlled. No changes made today. 4. Dyslipidemia: Reported intolerance to statin therapy. On Zetia. Goal LDL < 70. 5. Stroke: As per Neurology. 6. Disposition: Follow-up with Dr. Norton on discharge. Consider cardiac rehab. Since patient seen this morning, she has been discharged by Dr. Vinson. Admission and Anticipated Discharge Date Admission Date: June 16, 2022 Subjective Patient seen this morning. Feels much better overall. No further chest discomfort or jaw discomfort. She denies shortness of breath, syncope, near- syncope, palpitations. She still has dizziness, especially when laying flat. She was alone in her hospital room. Physical Exam Physical Exam: Gen.: No acute distress. Alert. HEENT: Anicteric sclera. Neck: No JVD or hepatic jugular reflux. Cardiac: No ventricular heave. Regular. Normal S1-S2. 1/6 systolic murmur. No rubs or gallops. Pulmonary: Clear to auscultation bilaterally without wheezes, rales, or rhonchi. Abdomen: Soft, nontender, nondistended, with normoactive bowel sounds. No bruits noted. Extremities: 2+ radial pulses bilaterally. 2+ posterior tibialis pulses bilaterally. No edema. No cyanosis. Psychiatric: Affect appears appropriate. Results & Data ([facility]) Vital Signs (Past 12 Hours) Vital Signs Temp Pulse Resp BP BP Pulse Ox O2 Del Method 06/20/22 10:14 36.6 C 64 18 117/68 114/74 96 06/20/22 07:39 36.6 C 64 18 117/68 96 Room Air 06/20/22 02:30 36.6 C 71 20 122/68 98 Room Air Intake & Output 06/18/22 06/19/22 06/20/22 06/21/22 06:59 06:59 06:59 06:59 Intake Total 580 / 580 1240 / 1240 250 / 250 Output Total 400 / 400 1300 / 1300 Balance 580 / 580 840 / 840 -1050 / -1050 Weight 147 lb 7.828 oz 149 lb 0.52 oz 149 lb 0.52 oz Laboratory Results Laboratory Results - last 24 hr 06/19/22 06/19/22 06/19/22 11:02 11:19 15:04 WBC RBC Hgb Hct MCV MCH MCHC RDW Std Deviation RDW Coeff of Becky Plt Count MPV Immature Gran % (Auto) Neut % (Auto) Lymph % (Auto) [place] % (Auto) Eos % (Auto) Baso % (Auto) Neut # (Auto) Lymph # (Auto) [place] # (Auto) Eos # (Auto) Baso # (Auto) Immature Gran # (Auto) Sodium Potassium Chloride Carbon Dioxide Anion Gap BUN Creatinine Est Cr Clr Drug Dosing Est GFR ( Amer) Est GFR (Non-Af Amer) BUN/Creatinine Ratio Glucose POC Glucose 96 Calcium Magnesium Troponin I High Sens 249.2 H* D 215.7 H* 06/19/22 06/19/22 06/20/22 16:30 19:57 06:27 WBC 4.81 RBC 3.93 Hgb 11.9 L Hct 34.9 MCV 88.8 MCH 30.3 MCHC 34.1 RDW Std Deviation 44.3 RDW Coeff of Becky 13.6 Plt Count 288 MPV 9.3 L Immature Gran % (Auto) 0.2 Neut % (Auto) 50.7 Lymph % (Auto) 30.8 [place] % (Auto) 13.1 Eos % (Auto) 4.6 Baso % (Auto) 0.6 Neut # (Auto) 2.44 Lymph # (Auto) 1.48 [place] # (Auto) 0.63 Eos # (Auto) 0.22 Baso # (Auto) 0.03 Immature Gran # (Auto) 0.01 Sodium Potassium Chloride Carbon Dioxide Anion Gap BUN Creatinine Est Cr Clr Drug Dosing Est GFR ( Amer) Est GFR (Non-Af Amer) BUN/Creatinine Ratio Glucose POC Glucose 94 129 H Calcium Magnesium Troponin I High Sens 06/20/22 06/20/22 06:27 07:35 WBC RBC Hgb Hct MCV MCH MCHC RDW Std Deviation RDW Coeff of Becky Plt Count MPV Immature Gran % (Auto) Neut % (Auto) Lymph % (Auto) [place] % (Auto) Eos % (Auto) Baso % (Auto) Neut # (Auto) Lymph # (Auto) [place] # (Auto) Eos # (Auto) Baso # (Auto) Immature Gran # (Auto) Sodium 134 L Potassium 4.1 Chloride 105 Carbon Dioxide 24 Anion Gap 5 BUN 11 Creatinine 0.63 Est Cr Clr Drug Dosing 56.0 Est GFR ( Amer) 94.8 Est GFR (Non-Af Amer) 81.8 BUN/Creatinine Ratio 17.5 Glucose 94 POC Glucose 102 H Calcium 8.5 Magnesium 1.7 Troponin I High Sens Diagnostic Findings Telemetry personally reviewed: Sinus rhythm. No arrhythmia. Medications Administered Current Inpatient Medications Acetaminophen (Acetaminophen 325 Mg Tab) 650 mg PO Q4H PRN PRN Reason: pain/fever Stop: 07/16/22 16:50 Last Admin: 06/17/22 09:47 Dose: 650 mg Aspirin (Aspirin 81 Mg Ectab) 81 mg PO QAM [facility] Stop: 07/17/22 08:59 Last Admin: 06/20/22 08:16 Dose: 81 mg Cetirizine HCl (Cetirizine Hcl 10 Mg Tablet) 10 mg PO DAILY [facility] Stop: 07/17/22 08:59 Last Admin: 06/20/22 08:16 Dose: 10 mg Clopidogrel Bisulfate (Clopidogrel Bisulfate 75 Mg Tab) 75 mg PO QAM [facility] Stop: 07/17/22 16:59 Last Admin: 06/20/22 08:16 Dose: 75 mg Dextrose (Dextrose 50% 50 Ml Syringe) 25 - 50 ml IV UD PRN; Protocol PRN Reason: Hypoglycemia Protocol Stop: 07/16/22 16:50 Ezetimibe (Ezetimibe 10 Mg Tablet) 10 mg PO DAILY DORIAN Stop: 07/17/22 08:59 Last Admin: 06/20/22 08:17 Dose: 10 mg Enoxaparin Sodium (Enoxaparin Inj 40 Mg/0.4 Ml Syr) 40 mg SQ QAM DORIAN Stop: 07/17/22 16:59 Last Admin: 06/20/22 08:17 Dose: 40 mg Glucagon (Glucagon For Inj 1 Mg Vial) 1 mg SQ UD PRN; Protocol PRN Reason: Hypoglycemia Protocol Stop: 07/16/22 16:50 Glucose (Glucose 40% Gel 15 Gm Tube) 15 - 30 gm PO UD PRN; Protocol PRN Reason: Hypoglycemia Protocol Stop: 07/16/22 16:50 Glucose (Glucose 10 Tab/Tube) 4 - 8 tab PO UD PRN; Protocol PRN Reason: Hypoglycemia Treatment Stop: 07/16/22 16:50 Insulin Aspart (Insulin Aspart Per Unit) 0 units SC ACHS [facility] Stop: 07/16/22 16:50 Last Admin: 06/20/22 08:18 Dose: Not Given Isosorbide Mononitrate (Isosorbide [place] Extended Rel 30 Mg Tabcr) 30 mg PO QAM DORIAN Stop: 07/19/22 13:29 Last Admin: 06/20/22 08:16 Dose: 30 mg Levothyroxine Sodium (Levothyroxine Sodium 88 Mcg Tablet) 88 mcg PO DAILYBB DORIAN Stop: 07/18/22 06:29 Last Admin: 06/20/22 05:51 Dose: 88 mcg Lidocaine (Lidocaine 5% 1 Patch) 2 patch TD HS DORIAN Stop: 07/16/22 20:59 Last Admin: 06/19/22 20:20 Dose: 2 patch Lisinopril (Lisinopril 20 Mg Tab) 20 mg PO QAM DORIAN Stop: 07/18/22 08:59 Last Admin: 06/20/22 08:16 Dose: 20 mg Meclizine HCl (Meclizine 12.5 Mg Tab) 12.5 mg PO TID PRN PRN Reason: dizziness Stop: 07/18/22 09:27 Last Admin: 06/19/22 19:20 Dose: 12.5 mg Melatonin (Melatonin 3 Mg Tab) 3 mg PO HS PRN PRN Reason: Sleep Stop: 07/18/22 00:08 Metoprolol Succinate (Metoprolol Succ 25mg Ext Rel Tab) 25 mg PO QAM DORIAN Stop: 07/17/22 08:59 Last Admin: 06/20/22 08:17 Dose: 25 mg Miscellaneous (Carbohydrates For Hypoglycemia ) 15 - 30 gm PO UD PRN PRN Reason: Hypoglycemia Protocol Stop: 07/16/22 16:50 Miscellaneous (Remove Lidoderm Patch) 1 each N/A DAILY DORIAN Stop: 07/17/22 08:59 Last Admin: 06/20/22 08:18 Dose: 1 each Miscellaneous Information (Pharmacist Discharge Med Rec Consult) 1 each N/A UD PRN PRN Reason: Consult Stop: 07/17/22 16:53 Nitroglycerin (Nitroglycerin Sl 0.4 Mg/Tab Tab) 0.4 mg SL PRN PRN PRN Reason: Chest Pain Stop: 07/19/22 11:18 Ondansetron HCl (Ondansetron Inj 2 Mg/Ml 2 Ml Vial) 4 mg IV Q4H PRN PRN Reason: Nausea Stop: 07/16/22 16:50 Oxybutynin Chloride (Oxybutynin Chloride Xl 5 Mg Tabcr) 5 mg PO DAILY DORIAN Stop: 07/17/22 08:59 Last Admin: 06/20/22 08:16 Dose: 5 mg Pantoprazole Sodium (Pantoprazole 40 Mg Tab) 40 mg PO DAILY [facility]; Protocol Stop: 07/17/22 08:59 Last Admin: 06/20/22 08:17 Dose: 40 mg Sertraline HCl (Sertraline Hcl 50 Mg Tablet) 25 mg PO DAILY DORIAN Stop: 07/17/22 08:59 Last Admin: 06/20/22 08:17 Dose: 25 mg PG Care Time/CCT Total # of Minutes Spent Total Time Spent with Patient: Total time spent is greater than 50% in coordination of care (as documented) at patient's floor/unit and/or counseling patient: Coding Level of Care Code 35773 Subseq Hosp Care Lvl 3 Diagnoses Stress-induced cardiomyopathy I51.81 CAD (coronary artery disease) I25.10 History of coronary artery bypass graft Z95.1 HTN (hypertension) I10 Hypertension type: unspecified Dyslipidemia E78.5 Acute CVA (cerebrovascular accident) I63.9 (1) HTN (hypertension) Hypertension type: unspecified Qualified Code(s): I10 - Essential (primary) hypertension
--- NOTE | 2022-06-20 11:39 | Pharmacy Report ---
Pharmacist Stroke Counseling - Date of Service June 20, 2022 - Scope: Pharmacy has been consulted to provide medication discharge counseling for this patient admitted with ischemic stroke as per the Pharmacist Discharge Counseling for Stroke Patients Protocol. - Medications on Discharge: Home Medications Medication Instructions Recorded Confirmed lancets 26 gauge ([place] 1 #50 ea 04/27/19 03/11/22 Lancets) biotin 10 mg tablet 10 mg PO QAM 05/30/19 06/16/22 cholecalciferol (vitamin D3) 125 5,000 units PO QAM 05/30/19 06/16/22 mcg (5,000 unit) capsule nitroglycerin 0.4 mg sublingual 0.4 mg sublingual UD PRN Chest Pain 05/30/19 06/16/22 tablet (Nitrostat) ezetimibe 10 mg tablet 10 mg PO DAILY 07/02/21 06/16/22 New Rx's Medication Instructions Recorded calcium carb,cit ER 600 mg-vit D3 1 tab PO BID #60 tabs 01/16/20 12.5 mcg (500 unit) tablet,ext.rel (Citracal-D3 Slow Release) blood sugar diagnostic (Blood #100 ea 05/18/21 Glucose Test) blood-glucose meter (Blood Glucose #1 ea 05/18/21 Monitoring) cetirizine 10 mg tablet (Zyrtec) 10 mg PO DAILY #30 tabs 11/26/21 lisinopril 20 mg tablet 20 mg PO QAM #90 tabs 12/17/21 oxybutynin chloride 5 mg 5 mg PO DAILY #30 tabs 02/17/22 tablet,extended release 24 hr aspirin 81 mg tablet,delayed 81 mg PO QAM 21 days #0 tabs 06/20/22 release clopidogrel 75 mg tablet 75 mg PO QAM #30 tabs 06/20/22 isosorbide mononitrate 30 mg 30 mg PO QAM #30 tabs 06/20/22 tablet,extended release 24 hr levothyroxine 88 mcg tablet 88 mcg PO DAILYBB #30 tabs 06/20/22 (Synthroid) meclizine 12.5 mg tablet 12.5 mg PO TID PRN dizziness #15 06/20/22 tabs metoprolol succinate 25 mg 25 mg PO QAM #30 tabs 06/20/22 tablet,extended release 24 hr pantoprazole 40 mg tablet,delayed 40 mg PO DAILY #30 tabs 06/20/22 release sertraline 25 mg tablet 25 mg PO Q2D 7 days #4 tabs 06/20/22 - Action: The above medications, specifically ones for stroke treatment/prophylaxis, have been reviewed in detail with the patient and/or patient personnel representative(s) prior to discharge. This includes indication, common adverse reactions, drug interactions, and medication administration. Medication counseling has been employed using the teach-back method to ensure understanding. - Outcome: The patient and/or patient personnel representative(s) have demonstrated understanding of the medications. Additional comments: * Spoke with patient on phone prior to discharge to review and educational guidance counselor on multiple medication changes. Patient sounds very knowledgeable and aware regarding her medications. Explained rationale for med changes. * Patient is aware to take Plavix + aspirin x 3 weeks, then D/C aspirin and continue Plavix monotherapy thereafter. Explained incr' bleeding risk with dual anti-platelet therapy. Patient says she bruises easily. Advised to monitor and caution. She usually takes Tylenol, but sometimes uses NSAID's. Stressed need to avoid NSAID's to reduce bleeding risk; she agrees. * She says she has been buying Prilosec (omeprazole) OTC; says she has uncontrollable acid reflux if she does not take PPI. Explained drug interaction between omeprazole and Plavix and that PPI is being changed to prescription Protonix. * Levothyroxine dose was decr' and she is being tapered off sertraline per her request. She lost her recently. * New cardiac meds are isosorbide and metoprolol. She has a wrist BP monitor; advised to check vitals. She does have history of dizziness and was given Rx for meclizine to use prn. * Lastly, patient had questions about constipation. She was not sure what is safe to take or what she can buy OTC. She has greatly difficulty with her bowels. Explained that oxybutynin ER which she takes 5mg daily can cause constipation (she is also having dry mouth, dry skin, etc). Recommend she discuss with PCP about alternative therapy; potentially Myrbetriq? She could certainly take OTC docusate and/or Miralax daily for constipation. * Spent >15 minutes on phone. She demonstrated understanding and appreciated counseling. Thank you for allowing pharmacy to be involved in the care of this patient. Please call [phone] with any additional questions
--- NOTE | 2022-06-20 19:27 | Electrocardiogram Report ---
Test Reason : Blood Pressure : / mmHG Vent. Rate : 063 BPM Atrial Rate : 063 BPM P-R Int : 182 ms QRS Dur : 084 ms QT Int : 448 ms P-R-T Axes : 054 050 163 degrees QTc Int : 459 ms Normal sinus rhythm Possible Left atrial enlargement Septal infarct (cited on or before 19-JUN-2022) T wave abnormality, consider inferior ischemia T wave abnormality, consider anterolateral ischemia Abnormal ECG When compared with ECG of 16-JUN-2022 15:06, T wave inversion more evident in Lateral leads T wave inversion now evident in Anterolateral leads Confirmed by [place] Peña ([id number]) on 06/20/2022 7:27:16 PM Referred By: REFERRED SELF Confirmed By:[place]
--- NOTE | 2022-06-20 19:34 | Electrocardiogram Report ---
Test Reason : Blood Pressure : / mmHG Vent. Rate : 058 BPM Atrial Rate : 058 BPM P-R Int : 180 ms QRS Dur : 092 ms QT Int : 450 ms P-R-T Axes : 053 057 138 degrees QTc Int : 441 ms Sinus bradycardia Septal infarct (cited on or before 19-JUN-2022) T wave abnormality, consider anterolateral ischemia Abnormal ECG When compared with ECG of 19-JUN-2022 10:00, No significant change was found Confirmed by [place] ([id number]) on 06/20/2022 7:33:55 PM Referred By: REFERRED SELF Confirmed By:[place]
== END 2022-06-20 13:59 | disposition home health service (06) | DRG 286 ==
LOC: ED 12:38 → SUATTDRO 14:44 → SURCTR 15:32 → CC 15:32 → 2S 15:33 → SURCTR 16:00

== ENCOUNTER 2025-08-28 15:56 | Observation (INO) ==
--- NOTE | 2025-08-28 16:19 | Emergency Department Note ---
History of Present Illness General Chief Complaint: Illness Time Seen by Provider: 08/28/25 16:05 History of Present Illness Provider Complaint: + cough, + nasal congestion and + sinus pain Onset (ago): 3 day(s) Duration: + progressively worsening Severity: severe Relieved By: + nothing Exacerbated By: + nothing Able to tolerate fluids by mouth: No Associated symptoms: + fever, + myalgias, + nasal congestion, + shortness of breath, + abdominal pain and + dysuria (Polyuria); no nausea, no vomiting or no diarrhea Home Medications Medication Instructions Recorded Confirmed Type lancets 26 gauge ([place] 1 #50 ea 04/27/19 08/23/25 History Lancets) blood-glucose meter (Blood Glucose #1 ea 05/18/21 08/23/25 Rx Monitoring kit) Wheeled walker w/ seat #1 ea 01/13/23 08/23/25 Rx loratadine 10 mg tablet (Claritin) 10 mg PO DAILY 09/13/23 08/28/25 History blood sugar diagnostic (Blood #100 ea 02/07/24 08/23/25 Rx Glucose Test strips) mecobalamin (vitamin B12) 1,000 1,000 mcg PO DAILY #30 tabs 04/13/24 08/28/25 Rx mcg chewable tablet (B12 Active) ezetimibe 10 mg tablet 10 mg PO DAILY #90 tabs 08/17/24 08/28/25 Rx cholecalciferol (vitamin D3) 125 125 mcg PO DAILY 01/01/25 08/28/25 History mcg (5,000 unit) capsule omeprazole magnesium 10 mg oral 10 mg PO Q2D 01/01/25 08/28/25 History suspension,delayed release (Prilosec) sodium chloride 1,000 mg soluble 1,000 mg PO BID #60 tabs 02/28/25 08/28/25 Rx tablet metoprolol succinate 25 mg 12.5 mg (1/2 x 25 mg) PO QAM #45 03/05/25 08/28/25 Rx tablet,extended release 24 hr tabs ascorbate calcium (vitamin C) 500 500 mg PO DAILY 03/18/25 08/28/25 History mg tablet bisacodyl 5 mg tablet,delayed 5 mg PO DAILY 03/18/25 08/28/25 History release (Dulcolax (bisacodyl)) nitroglycerin 0.4 mg sublingual 0.4 mg sublingual UD PRN Chest 03/18/25 08/28/25 Rx tablet (Nitrostat) Pain #20 tabs clopidogrel 75 mg tablet 75 mg PO QAM #90 tabs 04/02/25 08/28/25 Rx cyclobenzaprine 5 mg tablet 5 mg PO BID PRN muscle spasm #30 05/27/25 08/28/25 Rx tabs furosemide 20 mg tablet (Lasix) 20 mg PO DAILY PRN FLUID RENTION 07/04/25 08/28/25 History Synthroid 88 mcg tablet 88 mcg PO DAILY #90 tabs 07/30/25 08/28/25 Rx (levothyroxine) Allergies Allergy/AdvReac Type Severity Reaction Status Date / Time ciprofloxacin [From Cipro] Allergy Mild nauseated Verified 08/23/25 13:15 furosemide [From Lasix] Allergy Unknown Unknown Verified 08/23/25 13:15 hydrochlorothiazide Allergy Unknown Unknown Verified 08/23/25 13:15 nitrofurantoin Allergy Unknown Unknown Verified 08/23/25 13:15 [From Macrobid] codeine AdvReac Severe CHEST PAIN Verified 08/23/25 13:15 felodipine [From Plendil] AdvReac Mild NON Verified 08/23/25 13:15 TOLERANT oxycodone [From Percocet] AdvReac Mild NON Verified 08/23/25 13:15 TOLERANT pravastatin [From Pravachol] AdvReac Mild MYALGIAS Verified 08/23/25 13:15 simvastatin [From Zocor] AdvReac Mild MYALGIAS Verified 08/23/25 13:15 Tzzacwk-DAI-NeL Reductase AdvReac Mild Muscle Verified 08/23/25 13:15 Inhibitor aches and [Sbikxcj-Enc-[id number] Reductase cramping. Inhibitor] theophylline [From Silas-Dur] AdvReac Mild NON Verified 08/23/25 13:15 TOLERANT Past Med/Surg History Problem List (Updated 08/28/25 @ 20:56 by Keyon Hidalgo MD) Diverticulitis (Acute) COVID-19 (Acute) Sensorineural hearing loss (SNHL) of both ears Chronic neck pain Chronic hyponatremia Constipation CAD, multiple vessel Urge incontinence History of CVA (cerebrovascular accident) (05/2022) Status post placement of implantable loop recorder (06/2022) History of coronary artery bypass graft 2001-[facility] @[facility] – [place] Takotsubo cardiomyopathy BPPV (benign paroxysmal positional vertigo) Urinary frequency Acute CVA (cerebrovascular accident) (05/2022) Rotator cuff tear, right Osteoarthritis of knee Osteoporosis Reactive airway disease (Acute) History of partial colectomy SEP 2013 Spinal stenosis Arteriosclerotic coronary artery disease Carotid artery plaque Anxiety and depression Dyslipidemia GERD (gastroesophageal reflux disease) History of diverticulitis of colon Insomnia Moderate obstructive sleep apnea refused to wear CPAP Seasonal allergies Type 2 diabetes mellitus Urinary incontinence Vitamin D deficiency Lumbar facet joint syndrome Scoliosis Hypothyroidism HTN (hypertension) Medical History Bilateral shoulder pain Tear of meniscus of left knee MCL sprain of left knee Nocturia COVID-19 (06/2021) SBO (small bowel obstruction) History of anesthesia reaction after last colonoscopy [address] [facility] pt became dizzy with chest tightness and HTN in recovery area--Dr. Pankaj Montano sent pt to the ER for further evaluation (see anesthesia note from procedure), pt states no further issues and was discharged home. Intestinal mass hx of benign small mass on right side of colon---reason for partial colectomy Surgical History S/P partial colectomy (~2009) S/P exploratory laparotomy 06/17/19 with lysis of adhesions Dr. Modesto Hernandez History of tooth extraction partial upper and lower dentures H/O hemorrhoidectomy Hx of varicose vein ligation and stripping History of tubal ligation History of cataract surgery BILATERAL History of appendectomy Hx of cholecystectomy Family History Sister Family history of diabetes mellitus Mother Family history of diabetes mellitus Stroke Father Family history of diabetes mellitus Parkinsons disease Brother Family history of diabetes mellitus Prostate cancer Grandfather (Paternal) Family history of stomach cancer Other No family history of adverse response to anesthesia Denies family history of Ovarian cancer Breast cancer Lung cancer Colorectal cancer Social History Smoking Status: Never smoker Second Hand Exposure: No; Do You Dip or Chew Tobacco: No; Hx Alcohol Use: No Hx Substance Use: No Preferred Language: Indonesian Communication Ability: Effective Visual Impairment: Limited Hearing Ability: Normal Lockstitch Back Maker Required: No Beliefs That Will Affect Care: None marital status: / marital status details: Lost spouse Dec 2021 Current Living Situation: Alone Current Living Situation Comment: Daughter current occupational status: retired 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 Feels Safe at Home: Yes Childhood Exposure to Second-Hand Smoke: Yes Diet: regular Diet Comment: regular caffeine: Yes (coffee) during the past year weight has: remained stable Dental Care, Regularly: Yes Physical Activity Frequency: 1-2 Times per Week Physical Activity Frequency Comment: walking Seatbelt Use: always Sunscreen Use: Yes Do you think of yourself as: straight/heterosexual Gender Identity: Female Assistive Devices: Cane and Glasses Physical Exam 2 Vital Signs: Vital Signs - 24 hr 08/28/25 16:12 08/28/25 16:19 08/28/25 16:27 Temperature Temperature Source Pulse Rate 79 83 76 Pulse Rate [Apical ] Pulse Rate from Sp O2 Sensor 79 76 Respiratory Rate 15 13 Respiratory Effort / Characteristics Respiratory Depth Respiratory Patter n Blood Pressure Blood Pressure [Le ft Arm] Blood Pressure Kimmy n Blood Pressure Kimmy n [Left Arm] Blood Pressure Pos ition Pulse Oximetry 98 94 Oxygen Delivery Me thod Sepsis Recent Feve r Within 48 Hours Sepsis New/Unexpla ined Change in Men nina Status Sepsis Action Take n by Nursing 08/28/25 16:29 08/28/25 16:30 08/28/25 16:35 Temperature 37.1 C Temperature Source Oral Pulse Rate 78 Pulse Rate [Apical ] Pulse Rate from Sp O2 Sensor Respiratory Rate 18 Respiratory Effort / Characteristics Non-Labored Sponta neous Respiratory Depth Normal Respiratory Patter n Regular Blood Pressure 220/90 H 176/90 H Blood Pressure [Le ft Arm] Blood Pressure Kmimy n 133 131 Blood Pressure Kimmy n [Left Arm] Blood Pressure Pos ition Lying Pulse Oximetry 98 98 Oxygen Delivery Me thod Room Air Room Air Sepsis Recent Feve r Within 48 Hours Yes Sepsis New/Unexpla ined Change in Men nina Status No Sepsis Action Take n by Nursing No Action Required 08/28/25 16:36 08/28/25 16:51 08/28/25 17:21 Temperature Temperature Source Pulse Rate 76 Pulse Rate [Apical ] Pulse Rate from Sp O2 Sensor Respiratory Rate 18 Respiratory Effort / Characteristics Respiratory Depth Respiratory Patter n Blood Pressure 188/57 H Blood Pressure [Le ft Arm] Blood Pressure Kimmy n 100 Blood Pressure Kimmy n [Left Arm] Blood Pressure Pos ition Pulse Oximetry 98 Oxygen Delivery Me thod Room Air Sepsis Recent Feve r Within 48 Hours Sepsis New/Unexpla ined Change in Men nina Status Sepsis Action Take n by Nursing 08/28/25 17:30 08/28/25 17:30 08/28/25 17:51 Temperature Temperature Source Pulse Rate 73 70 Pulse Rate [Apical ] Pulse Rate from Sp O2 Sensor 69 Respiratory Rate 15 13 Respiratory Effort / Characteristics Respiratory Depth Respiratory Patter n Blood Pressure 186/93 H Blood Pressure [Le ft Arm] Blood Pressure Kimmy n 123 Blood Pressure Kimmy n [Left Arm] Blood Pressure Pos ition Pulse Oximetry 93 Oxygen Delivery Me thod Sepsis Recent Feve r Within 48 Hours Sepsis New/Unexpla ined Change in Men nina Status Sepsis Action Take n by Nursing 08/28/25 18:00 08/28/25 18:06 08/28/25 18:18 Temperature Temperature Source Pulse Rate 73 76 Pulse Rate [Apical ] Pulse Rate from Sp O2 Sensor 73 78 Respiratory Rate 13 15 Respiratory Effort / Characteristics Respiratory Depth Respiratory Patter n Blood Pressure 186/88 H Blood Pressure [Le ft Arm] Blood Pressure Kimmy n 120 Blood Pressure Kimmy n [Left Arm] Blood Pressure Pos ition Pulse Oximetry 95 93 Oxygen Delivery Me thod Sepsis Recent Feve r Within 48 Hours Sepsis New/Unexpla ined Change in Men nina Status Sepsis Action Take n by Nursing 08/28/25 18:30 08/28/25 18:30 08/28/25 18:33 Temperature 37.3 C Temperature Source Oral Pulse Rate 75 Pulse Rate [Apical ] Pulse Rate from Sp O2 Sensor 76 Respiratory Rate 17 Respiratory Effort / Characteristics Respiratory Depth Respiratory Patter n Blood Pressure 183/86 H Blood Pressure [Le ft Arm] Blood Pressure Kimmy n 124 Blood Pressure Kimmy n [Left Arm] Blood Pressure Pos ition Pulse Oximetry 98 Oxygen Delivery Me thod Sepsis Recent Feve r Within 48 Hours Sepsis New/Unexpla ined Change in Men nina Status Sepsis Action Take n by Nursing 08/28/25 19:07 08/28/25 20:16 Temperature Temperature Source Pulse Rate 89 Pulse Rate [Apical ] 72 Pulse Rate from Sp O2 Sensor Respiratory Rate 14 Respiratory Effort / Characteristics Respiratory Depth Respiratory Patter n Blood Pressure Blood Pressure [Le ft Arm] 182/85 H Blood Pressure Kimmy n Blood Pressure Kimmy n [Left Arm] 117 Blood Pressure Pos ition Pulse Oximetry 96 Oxygen Delivery Me thod Sepsis Recent Feve r Within 48 Hours Sepsis New/Unexpla ined Change in Men nina Status Sepsis Action Take n by Nursing Physical Exam: Physical Exam HENT: Exam performed. -Head: Normocephalic and atraumatic. -Right Ear: External ear normal. No mastoid erythema -Left Ear: External ear normal. No mastoid erythema -Mouth/Throat: The oropharynx is clear and moist. No trismus in the jaw. No dental abscesses or uvula swelling. No oropharyngeal exudate or tonsillar abscesses. EYES: Conjunctivae and EOM are normal. Pupils are equal, round, and reactive to light. Right eye exhibits no discharge. Left eye exhibits no discharge. No scleral icterus. NECK: Normal range of motion. Neck supple. No JVD present. No rigidity. No tracheal deviation and normal range of motion present. CV: Normal rate, regular rhythm, normal heart sounds and intact distal pulses. There is no peripheral edema. Palpable radial pulses bue. PULM/CHEST: Effort normal and breath sounds normal. No respiratory distress. No stridor. She has no wheezes. She has no rales. ABD: The abdomen is soft. There is tenderness to palpation in the left lower quadrant. There is no rebound, no guarding MUSC/SKEL: Normal range of motion. There is no peripheral edema, tenderness or deformity. NEURO: Motor and sensation grossly intact. Course Course 1605: The patient was evaluated in room B7. A complete history and physical exam was performed Cardiac monitoring: An order was placed for continuous cardiac monitoring. The monitor shows a rate of 80 with sinus rhythm interpreted by me 1915: Vital signs stable. Labs are unremarkable with exception of the patient being positive for COVID. Imaging shows mild diverticulitis and gastroenteritis. CT imaging does mention that the patient could have infectious/inflammatory process although is difficult to exclude an ischemic process. Patient's abdominal pain was localized to the left lower quadrant, thought more to be due to diverticulitis and not due to any bowel ischemia. Patient requesting something to eat. Low risk for mesenteric ischemia. Patient be treated with Zosyn for diverticulitis. I discussed with the patient and the son at bedside and the son at bedside stated that he will not take the patient home as she is too weak and his sister is sick at home with COVID and she is too weak to take care of her. Will contact [facility] hospitalist team for admission. Administered Medications Sodium Chloride (Nss) 500 mls @ 125 mls/hr IV .Q4H DORIAN Stop: 08/29/25 00:14 Last Admin: 08/28/25 20:42 Dose: 125 mls/hr Documented By: MED Discontinued Medications Acetaminophen (Ofirmev) 1,000 mg in 100 mls @ 400 mls/hr IV NOW STA Stop: 08/28/25 20:26 Last Admin: 08/28/25 20:42 Dose: 400 mls/hr Documented By: MED Ioversol (Optiray 320 100ml) 90 ml IV ONCE ONE Stop: 08/28/25 16:44 Last Admin: 08/28/25 16:43 Dose: 90 ml Documented By: COSMO Medical Decision Making Laboratory Data Attestation: I reviewed the patient's lab results. 08/28/25 16:13 08/28/25 17:15 Lab Results 08/28/25 08/28/25 08/28/25 Range/Units 16:13 16:24 17:00 WBC 5.38 (4.8-10.8) K/ul RBC 4.56 (4.20-5.40) M/uL Hgb 13.6 (12.0-16.0) g/dl POC Hgb 15.0 (12.0-16.0) g/dl Hct 40.9 (37.0-47.0) % POC Hct 44 (37-47) % MCV 89.7 (80.0-100.0) fL MCH 29.8 (25.0-34.0) pg MCHC 33.3 (32.0-36.0) g/dL RDW Std Deviation 46.5 H (36.4-46.3) fL RDW Coeff of Becky 14.2 (11.5-14.5) % Plt Count 299 (130-400) K/uL MPV 8.4 L (9.4-12.4) fL Immature Gran % (Auto) 0.2 % Neut % (Auto) 61.1 % Lymph % (Auto) 24.2 % Robertson % (Auto) 14.1 % Eos % (Auto) 0.0 % Baso % (Auto) 0.4 % Neut # (Auto) 3.29 (1.40-6.50) K/uL Lymph # (Auto) 1.30 (1.20-3.40) K/uL Robertson # (Auto) 0.76 H (0.11-0.59) K/uL Eos # (Auto) 0.00 (0.00-0.50) K/uL Baso # (Auto) 0.02 (0.00-0.20) K/uL Immature Gran # (Auto) 0.01 (0.01-0.20) K/uL PT 10.5 (9.0-12.0) Seconds INR 1.0 (0.9-1.1) APTT 28 (21-31) Seconds PTT Ratio 1.0 VBG pH (7.36-7.41) VBG pCO2 (38-50) mmHg VBG pO2 mmHg VBG HCO3 mmol/L VBG O2 Saturation % VBG Base Excess mEq/L POC Sodium 129 L (135-144) mmol/L Sodium (136-145) mmol/L POC Potassium 3.8 (3.3-5.0) mmol/L Potassium (3.5-5.1) mmol/L POC Chloride 94 L (101-112) mmol/L Chloride (98-107) mmol/L Carbon Dioxide (21-32) mmol/L POC Total CO2 24 (24-31) mmol/L Anion Gap (3-11) POC Anion Gap 16.0 (16-25) mmol/L POC BUN 19 H (7-18) mg/dl BUN (6-23) mg/dl Creatinine (0.6-1.2) mg/dl POC Creatinine 0.9 (0.6-1.3) mg/dl Est Cr Clr Drug Dosing ml/min eGFR BUN/Creatinine Ratio (10-20) Glucose (70-99(Fasting)) mg/dl POC Glucose (other) 131 H (70-99) mg/dl Lactate (0.4-2.0) mmol/L Calcium (8.6-10.3) mg/dl POC Ioniz Calcium Bernie 1.11 L (1.12-1.32) mmol/l Magnesium (1.7-2.4) mg/dl Total Bilirubin (0.2-1.0) mg/dl Direct Bilirubin (0-0.2) mg/dl AST (13-39) U/L ALT (7-52) U/L Alkaline Phosphatase (34-104) U/L Troponin I High Sens (0-14) pg/ml Total Protein (6.0-8.3) gm/dl Albumin (3.4-5.0) gm/dl Procalcitonin 0.20 (0-0.5) ng/ml Urine Color Urine Appearance (Clear) Urine pH (4.5-7.5) POC Urine pH (4.5-7.5) Ur Specific [place] (1.000-1.030) Urine Protein (Negative) POC Urine Protein (Negative) Urine Glucose (UA) (Negative) POC Ur Glucose (UA) (Normal) Urine Ketones (Negative) POC Urine Ketones (Negative) Urine Blood (Negative) POC Urine Blood (Negative) Urine Nitrite (Negative) POC Urine Nitrite (Negative) Urine Bilirubin (Negative) POC Urine Bilirubin (Negative) Urine Urobilinogen (Negative) POC Urine Urobilinogen (Normal) Ur Leukocyte Esterase (Negative) POC U Leukocyte Esteras (Negative) Urine WBC (Auto) (0-5) /hpf Urine RBC (Auto) (0-2) /hpf U Hyaline Cast (Auto) (0-2) /lpf U Epithel Cells (Auto) (0-2) /hpf Urine Bacteria (Auto) (None Seen) Urine Comment Adenovirus (PCR) Not Detected (NotDetected) B. pertussis DNA (PCR) Not Detected (NotDetected) B.parapertussis DNA PCR Not Detected (NotDetected) C. pneumoniae DNA (PCR) Not Detected (NotDetected) Coronavirus OC43 (PCR) Not Detected (NotDetected) Coronavirus HKU1 (PCR) Not Detected (NotDetected) Coronavirus 229E (PCR) Not Detected (NotDetected) SARS-CoV-2 (PCR) DETECTED A (NotDetected) Coronavirus NL63 (PCR) Not Detected (NotDetected) Human Metapneumovir PCR Not Detected (NotDetected) Influenza Type A (PCR) Not Detected (NotDetected) Influenza Type B (PCR) Not Detected (NotDetected) M. pneumoniae (PCR) Not Detected (NotDetected) Parainfluenza 1 (PCR) Not Detected (NotDetected) Parainfluenza 2 (PCR) Not Detected (NotDetected) Parainfluenza 3 (PCR) Not Detected (NotDetected) Parainfluenza 4 (PCR) Not Detected (NotDetected) RSV (PCR) Not Detected (NotDetected) Entero/Rhino (PCR) Not Detected (NotDetected) Group A Strep (PCR) NOT DETECTED (NotDetected) 08/28/25 08/28/25 Range/Units 17:15 18:15 WBC (4.8-10.8) K/ul RBC (4.20-5.40) M/uL Hgb (12.0-16.0) g/dl POC Hgb (12.0-16.0) g/dl Hct (37.0-47.0) % POC Hct (37-47) % MCV (80.0-100.0) fL MCH (25.0-34.0) pg MCHC (32.0-36.0) g/dL RDW Std Deviation (36.4-46.3) fL RDW Coeff of Becky (11.5-14.5) % Plt Count (130-400) K/uL MPV (9.4-12.4) fL Immature Gran % (Auto) % Neut % (Auto) % Lymph % (Auto) % Robertson % (Auto) % Eos % (Auto) % Baso % (Auto) % Neut # (Auto) (1.40-6.50) K/uL Lymph # (Auto) (1.20-3.40) K/uL Robertson # (Auto) (0.11-0.59) K/uL Eos # (Auto) (0.00-0.50) K/uL Baso # (Auto) (0.00-0.20) K/uL Immature Gran # (Auto) (0.01-0.20) K/uL PT (9.0-12.0) Seconds INR (0.9-1.1) APTT (21-31) Seconds PTT Ratio VBG pH 7.39 (7.36-7.41) VBG pCO2 43 (38-50) mmHg VBG pO2 23 mmHg VBG HCO3 26 mmol/L VBG O2 Saturation < 60.0 % VBG Base Excess 0.8 mEq/L POC Sodium (135-144) mmol/L Sodium 128 L (136-145) mmol/L POC Potassium (3.3-5.0) mmol/L Potassium 4.2 (3.5-5.1) mmol/L POC Chloride (101-112) mmol/L Chloride 95 L (98-107) mmol/L Carbon Dioxide 26 (21-32) mmol/L POC Total CO2 (24-31) mmol/L Anion Gap 7 (3-11) POC Anion Gap (16-25) mmol/L POC BUN (7-18) mg/dl BUN 17 (6-23) mg/dl Creatinine 0.65 (0.6-1.2) mg/dl POC Creatinine (0.6-1.3) mg/dl Est Cr Clr Drug Dosing 52.0 ml/min eGFR 84.63 BUN/Creatinine Ratio 26.2 H (10-20) Glucose 112 H (70-99(Fasting)) mg/dl POC Glucose (other) (70-99) mg/dl Lactate 1.1 (0.4-2.0) mmol/L Calcium 8.9 (8.6-10.3) mg/dl POC Ioniz Calcium Bernie (1.12-1.32) mmol/l Magnesium 1.7 (1.7-2.4) mg/dl Total Bilirubin 0.4 (0.2-1.0) mg/dl Direct Bilirubin 0.1 (0-0.2) mg/dl AST 19 (13-39) U/L ALT 12 (7-52) U/L Alkaline Phosphatase 59 (34-104) U/L Troponin I High Sens 9.3 (0-14) pg/ml Total Protein 6.3 (6.0-8.3) gm/dl Albumin 3.5 (3.4-5.0) gm/dl Procalcitonin (0-0.5) ng/ml Urine Color Yellow Urine Appearance Clear (Clear) Urine pH 7.0 (4.5-7.5) POC Urine pH 5 (4.5-7.5) Ur Specific [place] 1.037 H (1.000-1.030) Urine Protein Negative (Negative) POC Urine Protein Trace H (Negative) Urine Glucose (UA) Negative (Negative) POC Ur Glucose (UA) Normal (Normal) Urine Ketones Trace H (Negative) POC Urine Ketones 1+ (Small) H (Negative) Urine Blood Trace H (Negative) POC Urine Blood 50 H (Negative) Urine Nitrite Negative (Negative) POC Urine Nitrite Negative (Negative) Urine Bilirubin Negative (Negative) POC Urine Bilirubin 1+ H (Negative) Urine Urobilinogen Negative (Negative) POC Urine Urobilinogen Normal (Normal) Ur Leukocyte Esterase 1+ H (Negative) POC U Leukocyte Esteras Trace H (Negative) Urine WBC (Auto) 0-5 (0-5) /hpf Urine RBC (Auto) 0-2 (0-2) /hpf U Hyaline Cast (Auto) 0-2 (0-2) /lpf U Epithel Cells (Auto) 0-2 (0-2) /hpf Urine Bacteria (Auto) None Seen (None Seen) Urine Comment Adenovirus (PCR) (NotDetected) B. pertussis DNA (PCR) (NotDetected) B.parapertussis DNA PCR (NotDetected) C. pneumoniae DNA (PCR) (NotDetected) Coronavirus OC43 (PCR) (NotDetected) Coronavirus HKU1 (PCR) (NotDetected) Coronavirus 229E (PCR) (NotDetected) SARS-CoV-2 (PCR) (NotDetected) Coronavirus NL63 (PCR) (NotDetected) Human Metapneumovir PCR (NotDetected) Influenza Type A (PCR) (NotDetected) Influenza Type B (PCR) (NotDetected) M. pneumoniae (PCR) (NotDetected) Parainfluenza 1 (PCR) (NotDetected) Parainfluenza 2 (PCR) (NotDetected) Parainfluenza 3 (PCR) (NotDetected) Parainfluenza 4 (PCR) (NotDetected) RSV (PCR) (NotDetected) Entero/Rhino (PCR) (NotDetected) Group A Strep (PCR) (NotDetected) Imaging Data Attestation: I personally reviewed and interpreted this imaging study as follows: My Impression: Chest x-ray negative. Airway clear. No pneumothorax. No consolidation. No cardiomegaly or cephalization.. No free air under the diaphragm. No fractures of the skeletal structures. Radiologist's Impression: Abdomen/Pelvis CT 08/28/25 16:14 CT ABDOMEN and PELVIS with INTRAVENOUS CONTRAST HISTORY: Abdominal pain TECHNIQUE: CT abdomen and pelvis with contrast. IV CONTRAST: 100 mL of OMNIPAQUE 300 ENTERIC CONTRAST: Not Given COMPARISON: CT abdomen and pelvis April 13, 2024 FINDINGS: LOWER CHEST: Mild cardiomegaly is unchanged. Redemonstrated postoperative changes of the heart. Trace pleural fluids. Loop recorder. LIVER: No focal lesion identified. GALLBLADDER/BILIARY: Surgically absent gallbladder. No abnormal biliary dilatation allowing for postcholecystectomy state and patient age. SPLEEN: Unremarkable. PANCREAS: Unremarkable. ADRENALS: Unremarkable. KIDNEYS: Cortical cysts. Mild cortical atrophy with scarring. No stones or hydronephrosis identified. PERITONEUM/RETROPERITONEUM. No lymphadenopathy by size criteria. No aortic aneurysm. Extensive atherosclerosis with stenoses of the celiac trunk, the SMA, the renal arteries and the SHANNON. GASTROINTESTINAL: No obstruction. Moderate size hiatal hernia is again seen. Extensive diverticulosis of the sigmoid colon. There is a short segment of the sigmoid colon demonstrating wall thickening (series 300, image 51). Surgical materials by the cecum are likely from prior appendectomy. Mild wall thickening of the stomach and the loops of small bowel. Moderate quantity of fluid is seen within the colon. REPRODUCTIVE: No suspicious pelvic mass is identified. URINARY BLADDER: Inflammatory changes with wall thickening. ABDOMINAL WALL: Small fat-containing inguinal and umbilical hernias. Diastasis recti. BONES: No acute findings. Scoliosis IMPRESSION: Inflammatory changes of the urinary bladder suggest cystitis. Please correlate urinalysis. Extensive colonic diverticulosis of the sigmoid colon. There is a short segment of sigmoid colon demonstrate wall thickening. This could be due to mild focal colitis versus mild diverticulitis. Mild gastroenteritis and diarrheal illness suggested. This may be due to infectious/inflammatory process although difficult to exclude ischemic process given the extensive atherosclerosis Electronically signed by Max Desai 08-28-2025 5:39 PM Chest X-Ray 08/28/25 16:14 EXAM: Portable AP chest radiograph TECHNIQUE: AP portable radiograph of the chest was obtained. INDICATION: Sepsis Comparison: Chest radiograph June 16, 2022. FINDINGS: LINES and TUBES: Loop recorder. CARDIOVASCULAR: Cardiac silhouette is stably and mildly enlarged in size with redemonstrated post CABG changes. LUNGS/PLEURA: Mild pulmonary vascular congestion and chronic interstitial lung changes are similar to prior. No focal consolidation identified. No significant pleural fluid. No discernible pneumothorax. OSSEOUS/OTHER: No displaced acute osseous process identified. Median sternotomy wires are again seen. IMPRESSION: No radiographic evidence of acute cardiopulmonary process with no significant change from previous radiograph dated May 2022. No focal consolidation is identified. Electronically signed by Max Desai 08-28-2025 5:22 PM ECG Data Attestation: I personally reviewed and interpreted this ECG as follows: Rate (beats per minute): 77 Rhythm: normal sinus Findings: no ST depression, no ST elevation or no prolonged QT Additional Comments: QRS 70 MDM Narrative 1605: The patient was evaluated in room B7. A complete history and physical exam was performed Cardiac monitoring: An order was placed for continuous cardiac monitoring. The monitor shows a rate of 80 with sinus rhythm interpreted by me 1915: Vital signs stable. Labs are unremarkable with exception of the patient being positive for COVID. Imaging shows mild diverticulitis and gastroenteritis. CT imaging does mention that the patient could have infectious/inflammatory process although is difficult to exclude an ischemic process. Patient's abdominal pain was localized to the left lower quadrant, thought more to be due to diverticulitis and not due to any bowel ischemia. Patient requesting something to eat. Low risk for mesenteric ischemia. Patient be treated with Zosyn for diverticulitis. I discussed with the patient and the son at bedside and the son at bedside stated that he will not take the patient home as she is too weak and his sister is sick at home with COVID and she is too weak to take care of her. Will contact [facility] hospitalist team for admission. Impression & Plan COVID-19, Diverticulitis Discharge Plan Visit Data Chief Complaint: Illness ED Provider: Keyon Hidalgo Discharge Problem: COVID-19, Diverticulitis Patient Disposition: Admitted As Inpatient Condition: Fair Forms Stand Alone Forms: My [facility] Prescriptions Prescriptions: No Action (DME) blood-glucose meter [Blood Glucose Monitoring] Kit See Rx Instructions .ROUTE .MEDSUPPLY Qty: 1 0RF Rx Instructions: As directed Testing BS daily. Dx: E11.9 (DME) Blood Glucose Test Strip See Rx Instructions .ROUTE .MEDSUPPLY Qty: 100 1RF Rx Instructions: As directed. Testing BS daily. Dx: E11.9 mecobalamin (vitamin B12) [B12 Active] 1,000 mcg tablet,chewable 1,000 mcg PO DAILY Qty: 30 0RF ezetimibe 10 mg tablet 10 mg PO DAILY Qty: 90 3RF metoprolol succinate 25 mg tablet extended release 24 hr 12.5 mg PO QAM Qty: 45 3RF clopidogrel 75 mg tablet 75 mg PO QAM Qty: 90 3RF cyclobenzaprine 5 mg tablet 5 mg PO BID PRN (Reason: muscle spasm) Qty: 30 0RF levothyroxine [Synthroid] 88 mcg tablet 88 mcg PO DAILY Qty: 90 3RF loratadine [Claritin] 10 mg tablet 10 mg PO DAILY (DME) Wheeled walker w/ seat See Rx Instructions .Route .MEDSUPPLY Qty: 1 0RF Rx Instructions: As directed (DME) lancets [[place] 1 Lancets] 26 gauge misc See Dose Instructions .ROUTE .MEDSUPPLY Qty: 50 Rx Instructions: Testing twice daily cholecalciferol (vitamin D3) 125 mcg (5,000 unit) capsule 125 mcg PO DAILY Patient Comments: pt was advised by nephro to not take anymore but refuses to stop sodium chloride 1,000 mg tablet,soluble 1,000 mg PO BID Qty: 60 6RF ascorbate calcium (vitamin C) 500 mg tablet 500 mg PO DAILY bisacodyl [Dulcolax (bisacodyl)] 5 mg tablet,delayed release (DR/EC) 5 mg PO DAILY nitroglycerin [Nitrostat] 0.4 mg tablet, sublingual 0.4 mg SL UD PRN (Reason: Chest Pain) Qty: 20 2RF Rx Instructions: 0.4 mg SL DISSOLVE 1 TABLET UNDER THE TONGUE NEEDED FOR CHEST PAIN PRN; Prilosec 10 mg susp,delayed release for recon 10 mg PO Q2D furosemide [Lasix] 20 mg tablet 20 mg PO DAILY PRN (Reason: FLUID RENTION) Referrals Referrals: Candice Gonzalez DO [Primary Care Provider] -
[2025-08-28 16:37] LABS: Hematocrit (blood only) 40.9 % (37.0-47.0); Hemoglobin 13.6 g/dl (12.0-16.0); Immature Granulocytes # (auto) 0.01 K/uL (0.01-0.20); Immature Granulocytes % (auto) 0.2 %; Mean Corpuscular Hemoglobin 29.8 pg (25.0-34.0); Mean Corpuscular Volume 89.7 fL (80.0-100.0); Platelet Count 299 K/uL (130-400); RDW Standard Deviation 46.5 fL (36.4-46.3); Red Blood Count 4.56 M/uL (4.20-5.40); White Blood Count 5.38 K/ul (4.8-10.8)
[2025-08-28] MEDS: OPTIRAY 320 100ml IV ONE (16:43)
[2025-08-28 17:03] LABS: INR 1.0 (0.9-1.1); Partial Thromboplastin Time 28 Seconds (21-31); Prothrombin Time 10.5 Seconds (9.0-12.0)
--- NOTE | 2025-08-28 17:22 | XRay Report ---
EXAM: Portable AP chest radiograph TECHNIQUE: AP portable radiograph of the chest was obtained. INDICATION: Sepsis Comparison: Chest radiograph June 16, 2022. FINDINGS: LINES and TUBES: Loop recorder. CARDIOVASCULAR: Cardiac silhouette is stably and mildly enlarged in size with redemonstrated post CABG changes. LUNGS/PLEURA: Mild pulmonary vascular congestion and chronic interstitial lung changes are similar to prior. No focal consolidation identified. No significant pleural fluid. No discernible pneumothorax. OSSEOUS/OTHER: No displaced acute osseous process identified. Median sternotomy wires are again seen. IMPRESSION: No radiographic evidence of acute cardiopulmonary process with no significant change from previous radiograph dated May 2022. No focal consolidation is identified. Electronically signed by Max Desai 08-28-2025 5:22 PM
[2025-08-28 17:25] LABS: Chlamydia pneumoniae PCR Not Detected (NotDetected); Coronavirus 229E PCR Not Detected (NotDetected); Coronavirus CoV-2 (COVID19)PCR DETECTED (NotDetected); Coronavirus HKU1 PCR Not Detected (NotDetected); Coronavirus NL63 PCR Not Detected (NotDetected); Coronavirus OC43PCR Not Detected (NotDetected); Human Metapneumovirus PCR Not Detected (NotDetected); Parainfluenza Virus 1 PCR Not Detected (NotDetected); Parainfluenza Virus 2 PCR Not Detected (NotDetected); Parainfluenza Virus 3 PCR Not Detected (NotDetected); Parainfluenza Virus 4 PCR Not Detected (NotDetected); Respiratory Syncytial VirusPCR Not Detected (NotDetected); Rhinovirus/Enterovirus PCR Not Detected (NotDetected)
--- NOTE | 2025-08-28 17:41 | CT Scan Report ---
CT ABDOMEN and PELVIS with INTRAVENOUS CONTRAST HISTORY: Abdominal pain TECHNIQUE: CT abdomen and pelvis with contrast. IV CONTRAST: 100 mL of OMNIPAQUE 300 ENTERIC CONTRAST: Not Given COMPARISON: CT abdomen and pelvis April 13, 2024 FINDINGS: LOWER CHEST: Mild cardiomegaly is unchanged. Redemonstrated postoperative changes of the heart. Trace pleural fluids. Loop recorder. LIVER: No focal lesion identified. GALLBLADDER/BILIARY: Surgically absent gallbladder. No abnormal biliary dilatation allowing for postcholecystectomy state and patient age. SPLEEN: Unremarkable. PANCREAS: Unremarkable. ADRENALS: Unremarkable. KIDNEYS: Cortical cysts. Mild cortical atrophy with scarring. No stones or hydronephrosis identified. PERITONEUM/RETROPERITONEUM. No lymphadenopathy by size criteria. No aortic aneurysm. Extensive atherosclerosis with stenoses of the celiac trunk, the SMA, the renal arteries and the SHANNON. GASTROINTESTINAL: No obstruction. Moderate size hiatal hernia is again seen. Extensive diverticulosis of the sigmoid colon. There is a short segment of the sigmoid colon demonstrating wall thickening (series 300, image 51). Surgical materials by the cecum are likely from prior appendectomy. Mild wall thickening of the stomach and the loops of small bowel. Moderate quantity of fluid is seen within the colon. REPRODUCTIVE: No suspicious pelvic mass is identified. URINARY BLADDER: Inflammatory changes with wall thickening. ABDOMINAL WALL: Small fat-containing inguinal and umbilical hernias. Diastasis recti. BONES: No acute findings. Scoliosis IMPRESSION: Inflammatory changes of the urinary bladder suggest cystitis. Please correlate urinalysis. Extensive colonic diverticulosis of the sigmoid colon. There is a short segment of sigmoid colon demonstrate wall thickening. This could be due to mild focal colitis versus mild diverticulitis. Mild gastroenteritis and diarrheal illness suggested. This may be due to infectious/inflammatory process although difficult to exclude ischemic process given the extensive atherosclerosis Electronically signed by Max Desai 08-28-2025 5:39 PM
[2025-08-28 17:44] LABS: Base Excess VBG 0.8 mEq/L; HCO3 VBG 26 mmol/L; Oxygen Saturation VBG < 60.0 %; PCO2 VBG 43 mmHg (38-50); PO2 VBG 23 mmHg; pH VBG 7.39 (7.36-7.41)
[2025-08-28 17:57] LABS: Alanine Aminotransferase 12.0 U/L (7-52); Albumin Level 3.5 gm/dl (3.4-5.0); Alkaline Phosphatase 59.0 U/L (34-104); Anion Gap 7.0 (3-11); Bilirubin,Total 0.4 mg/dl (0.2-1.0); Blood Urea Nitrogen 17.0 mg/dl (6-23); Calcium 8.9 mg/dl (8.6-10.3); Carbon Dioxide 26.0 mmol/L (21-32); Chloride 95.0 mmol/L (98-107); Creatinine Clr Calc Pharmacy 52.0 ml/min; Glucose 112.0 mg/dl (70-99(Fasting)); Magnesium 1.7 mg/dl (1.7-2.4); Potassium 4.2 mmol/L (3.5-5.1); Sodium 128.0 mmol/L (136-145); Total Protein 6.3 gm/dl (6.0-8.3)
[2025-08-28 18:29] LABS: POC Urine Bilirubin 1+ (Negative); POC Urine Blood 50 (Negative); POC Urine Glucose Normal (Normal); POC Urine Ketones 1+ (Small) (Negative); POC Urine Leukocytes Trace (Negative); POC Urine Nitrite Negative (Negative); POC Urine Protein Trace (Negative); POC Urine Urobilinogen Normal (Normal); POC Urine pH 5 (4.5-7.5)
[2025-08-28 18:38] LABS: Appearance Urine Clear (Clear); Bacteria Urine Automated None Seen (None Seen); Cast Urine Automated 0-2 /lpf (0-2); Epithelial Cell Urine Auto 0-2 /hpf (0-2); Glucose Urine UA Negative (Negative); RBC Urine Automated 0-2 /hpf (0-2); WBC Urine Automated 0-5 /hpf (0-5)
--- NOTE | 2025-08-28 20:32 | History & Physical Report ---
Date of Service August 28, 2025 Assessment & Plan (1) COVID-19: (2) Chronic hyponatremia: (3) Weakness: Plan 89 y/o female with pmh of HTN, CAD, Tkotsubo cardiomyopathy, loop recorder, Anxiety and depression, DM2 here due to generalized weakness, sinus pressure, body aches, and sore throat. Patient found positive for COVID. Patient will be admitted due to deconditioning and IV fluids. Covid 19 +, Weakness - Patient with URI since Tuesday. Patient complains of sore throat, body aches and weakness. Had had poor po intake since illness started. 3 days since onset of symptoms - Covid + on biofire - No leukocytosis, no anemia. VBG normal. sodium 129. Negative procalcitonin. Normal lactate acid - CXR: No acute infectious process. Mild pulmonary effusion. No congestion - Patient saturating well on room air - will admit patient due to deconditioning - Remdisivir and dexamethasone IV. Suspect dexamethasone can be dc tomorrow am if patient improved clinically - Monitor liver enzymes in am - airborne precautions - Tylenol for fever - Labs am - PT/ OT evaluation Hyponatremia - Acute on chronic. baseline 130. - continue sodium chloride bid - NSS 500 ml 125 ml/hr added - Serum osmolality 270, urine osmolality: , ur sodium - Monitor labs am History of partial colectomy and diverticulitis of colon h/o recurrent diverticulitis, SBO, s/p colectomy in [address] with mild findings of focal colitis versus mild diverticulitis WBC withut leukocytosis, no focal tenderness on exam. Denied any blood stools. negative lactate -Received Zosyn once in the ED - No signs of acute diverticulitis, will discontinue abx -Continue to monitor #HTN (hypertension): continue low dose metoprolol #CAD -post CABG x3 in the past. -She is intolerant to statin therapy, she will continue nitrate and zetia and plavix - metoprolol daily #Takotsubo cardiomyopathy: stable Dx May 2022, EF 35-40%, f/u care per cardiology # Hypothyroidism: continue levothyroxine # Type 2 diabetes mellitus: Diet controlled Will add SSI due to steroids GERD: continue PPI History of CVA (cerebrovascular accident): Dx May 2022 will continue to monitor, remain on daily Plavix DVT prophylaxis: Lovenox Dispo: MEd/Telemetry History of Present Illness Primary Care Provider: Candice Gonzalez, 89 y/o female with pmh of HTN, CAD, Tkotsubo cardiomyopathy, loop recorder, Anxiety and depression, DM2 here due to generalized weakness, sinus pressure, body aches, and sore throat. Patient found with positive. Patient states symptoms started on Tuesday with general weakness, body aches and sore throat. Had been declining in the last couple of days. Had poor po intake as well. Did not take her morning medications this morning. Daughter had similar symptoms last week. Denied any SOB. Have sporadic cough and sinus pressure. Denied any abdominal pain or nausea. Denied any chest pain or palpitations. Denied any dysuria, frequency or urgency. She have history of urinary incontinence but had not change from baseline. Allergies Allergy/AdvReac Type Severity Reaction Status Date / Time ciprofloxacin [From Cipro] Allergy Mild nauseated Verified 08/23/25 13:15 furosemide [From Lasix] Allergy Unknown Unknown Verified 08/23/25 13:15 hydrochlorothiazide Allergy Unknown Unknown Verified 08/23/25 13:15 nitrofurantoin Allergy Unknown Unknown Verified 08/23/25 13:15 [From Macrobid] codeine AdvReac Severe CHEST PAIN Verified 08/23/25 13:15 felodipine [From Plendil] AdvReac Mild NON Verified 08/23/25 13:15 TOLERANT oxycodone [From Percocet] AdvReac Mild NON Verified 08/23/25 13:15 TOLERANT pravastatin [From Pravachol] AdvReac Mild MYALGIAS Verified 08/23/25 13:15 simvastatin [From Zocor] AdvReac Mild MYALGIAS Verified 08/23/25 13:15 Fqifmco-VWA-ZtK Reductase AdvReac Mild Muscle Verified 08/23/25 13:15 Inhibitor aches and [Lggivqa-[id number] Reductase cramping. Inhibitor] theophylline [From Silas-Dur] AdvReac Mild NON Verified 08/23/25 13:15 TOLERANT Home Medications Medication Instructions Recorded Confirmed Type lancets 26 gauge ([place] 1 #50 ea 04/27/19 08/23/25 History Lancets) blood-glucose meter (Blood Glucose #1 ea 05/18/21 08/23/25 Rx Monitoring kit) Wheeled walker w/ seat #1 ea 01/13/23 08/23/25 Rx loratadine 10 mg tablet (Claritin) 10 mg PO DAILY 09/13/23 08/28/25 History blood sugar diagnostic (Blood #100 ea 02/07/24 08/23/25 Rx Glucose Test strips) mecobalamin (vitamin B12) 1,000 1,000 mcg PO DAILY #30 tabs 04/13/24 08/28/25 Rx mcg chewable tablet (B12 Active) ezetimibe 10 mg tablet 10 mg PO DAILY #90 tabs 08/17/24 08/28/25 Rx cholecalciferol (vitamin D3) 125 125 mcg PO DAILY 01/01/25 08/28/25 History mcg (5,000 unit) capsule omeprazole magnesium 10 mg oral 10 mg PO Q2D 01/01/25 08/28/25 History suspension,delayed release (Prilosec) sodium chloride 1,000 mg soluble 1,000 mg PO BID #60 tabs 02/28/25 08/28/25 Rx tablet metoprolol succinate 25 mg 12.5 mg (1/2 x 25 mg) PO QAM #45 03/05/25 08/28/25 Rx tablet,extended release 24 hr tabs ascorbate calcium (vitamin C) 500 500 mg PO DAILY 03/18/25 08/28/25 History mg tablet bisacodyl 5 mg tablet,delayed 5 mg PO DAILY 03/18/25 08/28/25 History release (Dulcolax (bisacodyl)) nitroglycerin 0.4 mg sublingual 0.4 mg sublingual UD PRN Chest 03/18/25 08/28/25 Rx tablet (Nitrostat) Pain #20 tabs clopidogrel 75 mg tablet 75 mg PO QAM #90 tabs 04/02/25 08/28/25 Rx cyclobenzaprine 5 mg tablet 5 mg PO BID PRN muscle spasm #30 05/27/25 08/28/25 Rx tabs furosemide 20 mg tablet (Lasix) 20 mg PO DAILY PRN FLUID RENTION 07/04/25 08/28/25 History Synthroid 88 mcg tablet 88 mcg PO DAILY #90 tabs 07/30/25 08/28/25 Rx (levothyroxine) Past Med/Surg History Problem List (Updated 08/28/25 @ 20:56 by Keyon Hidalgo MD) Diverticulitis (Acute) COVID-19 (Acute) Sensorineural hearing loss (SNHL) of both ears Chronic neck pain Chronic hyponatremia Constipation CAD, multiple vessel Urge incontinence History of CVA (cerebrovascular accident) (05/2022) Status post placement of implantable loop recorder (06/2022) History of coronary artery bypass graft [place] [place] Takotsubo cardiomyopathy BPPV (benign paroxysmal positional vertigo) Urinary frequency Acute CVA (cerebrovascular accident) (05/2022) Rotator cuff tear, right Osteoarthritis of knee Osteoporosis Reactive airway disease (Acute) History of partial colectomy SEP 2013 Spinal stenosis Arteriosclerotic coronary artery disease Carotid artery plaque Anxiety and depression Dyslipidemia GERD (gastroesophageal reflux disease) History of diverticulitis of colon Insomnia Moderate obstructive sleep apnea refused to wear CPAP Seasonal allergies Type 2 diabetes mellitus Urinary incontinence Vitamin D deficiency Lumbar facet joint syndrome Scoliosis Hypothyroidism HTN (hypertension) Medical History Bilateral shoulder pain Tear of meniscus of left knee MCL sprain of left knee Nocturia COVID-19 (06/2021) SBO (small bowel obstruction) History of anesthesia reaction after last colonoscopy 2016 @ [facility] pt became dizzy with chest tightness and HTN in recovery area--Dr. Pankaj Montano sent pt to the ER for further evaluation (see anesthesia note from procedure), pt states no further issues and was discharged home. Intestinal mass hx of benign small mass on right side of colon---reason for partial colectomy Surgical History S/P partial colectomy (~2009) S/P exploratory laparotomy 06/17/19 with lysis of adhesions Dr. Modesto Hernandez History of tooth extraction partial upper and lower dentures H/O hemorrhoidectomy Hx of varicose vein ligation and stripping History of tubal ligation History of cataract surgery BILATERAL History of appendectomy Hx of cholecystectomy Family History Sister Family history of diabetes mellitus Mother Family history of diabetes mellitus Stroke Father Family history of diabetes mellitus Parkinsons disease Brother Family history of diabetes mellitus Prostate cancer Grandfather (Paternal) Family history of stomach cancer Other No family history of adverse response to anesthesia Denies family history of Ovarian cancer Breast cancer Lung cancer Colorectal cancer Social History Smoking Status: Never smoker Second Hand Exposure: No; Do You Dip or Chew Tobacco: No; Hx Alcohol Use: No Hx Substance Use: No Preferred Language: Macedonian Communication Ability: Effective Visual Impairment: Limited Hearing Ability: Normal Cattle Inspector Required: No Beliefs That Will Affect Care: None marital status: / marital status details: Lost spouse Dec 2021 Current Living Situation: Family Current Living Situation Comment: Daughter current occupational status: retired 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 Feels Safe at Home: Yes Safety Concerns: Feels Safe At This Time Childhood Exposure to Second-Hand Smoke: Yes Diet: regular Diet Comment: regular caffeine: Yes (coffee) during the past year weight has: remained stable Dental Care, Regularly: Yes Physical Activity Frequency: 1-2 Times per Week Physical Activity Frequency Comment: walking Seatbelt Use: always Sunscreen Use: Yes Do you think of yourself as: straight/heterosexual Gender Identity: Female Assistive Devices: Walker Review of Systems Review of Systems: as per hpi Physical Exam Constitutional: WD/WN, vitals as above ENMT: external ear and nose normal, oropharynx normal Respiratory: normal respiratory effort, lungs clear to auscultation Cardiovascular: RRR, no murmur, no edema No JVD Gastrointestinal (Abdomen): normal bowel sounds, soft, nontender, no hepatosplenomegaly Skin: no rashes, warm and dry Psychiatric: A+Ox3, euthymic affect Results & Data Results & Data Vital Signs (Past 12 Hours) Vital Signs Temp Pulse Pulse Resp BP BP Pulse Ox 08/28/25 20:16 89 08/28/25 19:07 72 14 182/85 H 96 08/28/25 18:33 75 17 98 08/28/25 18:30 183/86 H 08/28/25 18:30 37.3 C 08/28/25 18:18 76 15 93 08/28/25 18:06 73 13 95 08/28/25 18:00 186/88 H 08/28/25 17:51 70 13 93 08/28/25 17:30 186/93 H 08/28/25 17:30 73 15 08/28/25 17:21 76 18 08/28/25 16:51 188/57 H 08/28/25 16:36 98 08/28/25 16:35 98 08/28/25 16:30 176/90 H 08/28/25 16:29 37.1 C 78 18 220/90 H 98 08/28/25 16:27 76 13 94 08/28/25 16:19 83 08/28/25 16:12 79 15 98 O2 Del Method 08/28/25 20:16 08/28/25 19:07 08/28/25 18:33 08/28/25 18:30 08/28/25 18:30 08/28/25 18:18 08/28/25 18:06 08/28/25 18:00 08/28/25 17:51 08/28/25 17:30 08/28/25 17:30 08/28/25 17:21 08/28/25 16:51 08/28/25 16:36 Room Air 08/28/25 16:35 Room Air 08/28/25 16:30 08/28/25 16:29 Room Air 08/28/25 16:27 08/28/25 16:19 08/28/25 16:12 Code Status & VTE Plan VTE Prophylaxis Plan VTE Prophylaxis will be ordered: Yes Supervising Physician Co-Signing Physician Notes Attending addendum: I have physically seen this patient, have supervised the medical residents activities, and agree with the H&P unless as otherwise noted. Assessment and Plan: The patient is an 89-year-old female with past medical history including hypertension, CAD, Takotsubo cardiomyopathy, loop recorder, anxiety and depression, diabetes mellitus type 2, GERD, dyslipidemia, hypothyroidism, and SNHL bilaterally. She presents to the emergency department with generalized weakness, mild sore throat, generalized bodyaches. She has had poor oral intake over the past 3 days, since the onset of her symptoms. Testing in the emergency department included respiratory bio fire test which was positive for COVID. There were GI findings that were noted on the CT, however, the patient has no symptoms of focal colitis, diarrhea, diverticulitis, gastroenteritis and diarrhea, it will not need to be treated. [facility] COVID-19 infection- Symptoms of generalized weakness, sore throat, body aches. She had decreased oral intake for liquids and solids over the past 3 days since symptoms began Chest x-ray was negative Treatment with remdesivir IV and dexamethasone IV as noted. COVID precautions Acetaminophen 650 mg by mouth every 6 hours as needed for mild pain or fever Will ultimately need PT/OT assessment to address significant weakness Hyponatremia- Acute on chronic Sodium on admission 128, baseline around 130 Serum osmolality 270, urine osmolality is pending Received normal saline 500 mL bolus from the ED, and will be admitted on NSS at 125 mL/h x 1 L Repeat laboratories in the a.m. History of partial colectomy- CT scan was over read as focal colitis versus mild enterocolitis versus mild gastroenteritis and diarrhea, which patient has no symptoms She was given Zosyn 4.5 g IV dose by the ED, will not be continued CAD/hypertension/Takotsubo cardiomyopathy/status post CABG x 3- Continue metoprolol, clopidogrel, Zetia, and nitroglycerin sublingual as as needed Diabetes mellitus- Diet controlled Placed on SSI due to likely bump in sugars while on dexamethasone Resident Activity Tracking Resident Involvement: Resident Care Provided Care Provided: Adult [facility] Medicine
[2025-08-28] MEDS: SODIUM CHLORIDE 0.9% 500 ML IV SCH (20:42)
[2025-08-28] MEDS: ACETAMINOPHEN 1,000 MG/100 ML VIAL IV STA (20:42)
[2025-08-28] MEDS: PIPERACILLIN/TAZOBACTAM 4.5 GM/120 ML BAG IV ONE (21:49)
[2025-08-28] MEDS: MAGNESIUM SULFATE / D5W 1 GM/100 ML BAG IV ONE (22:19)
[2025-08-29] MEDS ORDERED: CARBOHYDRATES FOR HYPOGLYCEMIA PO PRN (00:32)
[2025-08-29] MEDS ORDERED: GLUCOSE 40% GEL 15 GM TUBE PO PRN (00:32)
[2025-08-29] MEDS ORDERED: GLUCAGON FOR INJ 1 MG VIAL SQ PRN (00:32)
[2025-08-29] MEDS ORDERED: POLYETHYLENE (MIRALAX) 17 GM PACK PO PRN (00:32)
[2025-08-29] MEDS ORDERED: GLUCOSE 10 TAB/TUBE PO PRN (00:32)
[2025-08-29] MEDS ORDERED: DEXTROSE 50% 50 ML SYRINGE IV PRN (00:32)
[2025-08-29] MEDS: REMDESIVIR 200 MG in SODIUM CHLORIDE 0.9% 210 ML IV STA (01:54)
[2025-08-29] MEDS: dexAMETHasone 6 MG in SYRINGE 0 ML IV SCH (01:54)
[2025-08-29] MEDS: ENOXAPARIN INJ 40 MG/0.4 ML SYR SQ SCH (01:56)
[2025-08-29] MEDS: SODIUM CHLORIDE 1 GM TABLET PO SCH (01:57)
[2025-08-29] MEDS ORDERED: COUGH DROP (SUGAR FREE) LOZ 24 LOZ/1 BOX BUCCAL PRN (02:15)
[2025-08-29] MEDS: ACETAMINOPHEN 325 MG TAB PO PRN (02:41)
--- NOTE | 2025-08-29 04:59 | Billing Data ---
Date of Service August 29, 2025 Coding Level of Care Code 51709 INT INP/OBS CARE
[2025-08-29] MEDS: LEVOTHYROXINE SODIUM 88 MCG TABLET PO SCH (06:36)
[2025-08-29 07:56] LABS: Hematocrit (blood only) 38.7 % (37.0-47.0); Hemoglobin 13.1 g/dl (12.0-16.0); Immature Granulocytes # (auto) 0.01 K/uL (0.01-0.20); Immature Granulocytes % (auto) 0.3 %; Mean Corpuscular Hemoglobin 30.3 pg (25.0-34.0); Mean Corpuscular Volume 89.4 fL (80.0-100.0); Platelet Count 253 K/uL (130-400); RDW Standard Deviation 46.8 fL (36.4-46.3); Red Blood Count 4.33 M/uL (4.20-5.40); White Blood Count 3.78 K/ul (4.8-10.8)
[2025-08-29] MEDS: CLOPIDOGREL BISULFATE 75 MG TAB PO SCH (08:06)
[2025-08-29] MEDS: EZETIMIBE 10 MG TAB PO SCH (08:06)
[2025-08-29] MEDS: LORATADINE 10 MG TAB PO SCH (08:06)
[2025-08-29] MEDS: METOPROLOL SUCC 25MG EXT REL TAB PO SCH (08:06)
[2025-08-29 08:11] LABS: Alanine Aminotransferase 13.0 U/L (7-52); Albumin Level 3.6 gm/dl (3.4-5.0); Alkaline Phosphatase 57.0 U/L (34-104); Anion Gap 7.0 (3-11); Bilirubin,Total 0.3 mg/dl (0.2-1.0); Blood Urea Nitrogen 12.0 mg/dl (6-23); Calcium 8.4 mg/dl (8.6-10.3); Carbon Dioxide 24.0 mmol/L (21-32); Chloride 100.0 mmol/L (98-107); Creatinine Clr Calc Pharmacy 55.7 ml/min; Glucose 162.0 mg/dl (70-99(Fasting)); Potassium 4.0 mmol/L (3.5-5.1); Sodium 131.0 mmol/L (136-145); Total Protein 6.2 gm/dl (6.0-8.3)
[2025-08-29] MEDS: INSULIN ASPART PER UNIT CHARGE SC SCH (08:18)
[2025-08-29 08:23] LABS: INR 1.0 (0.9-1.1); Partial Thromboplastin Time 37 Seconds (21-31); Prothrombin Time 10.7 Seconds (9.0-12.0)
--- NOTE | 2025-08-29 09:01 | Electrocardiogram Report ---
Test Reason : Blood Pressure : */* mmHG Vent. Rate : 77 BPM Atrial Rate : 77 BPM P-R Int : 196 ms QRS Dur : 70 ms QT Int : 362 ms P-R-T Axes : 49 38 64 degrees QTcB Int : 409 ms Normal sinus rhythm Low voltage QRS Borderline ECG When compared with ECG of 19-Jun-2022 11:52, Criteria for Septal infarct are no longer Present T wave inversion no longer evident in Anterolateral leads Confirmed by Roel Norton ([id number]) on 08/29/2025 9:01:07 AM Referred By: Candice Gonzalez Confirmed By: Roel Norton
[2025-08-29] MEDS: CHLORASEPTIC (PHENOL) 1.4% SOLN 180 ML BTL MT PRN (17:51)
--- NOTE | 2025-08-29 19:52 | Hospitalist Progress Note ---
Date of Service August 29, 2025 Assessment & Plan (1) COVID-19: (2) Chronic hyponatremia: (3) Weakness: Plan This patient is an 89 y/o female with pmh of HTN, CAD s/p CABG, Takotsubo cardiomyopathy, cryptogenic CVA with implanted loop recorder, hypothyroidism, partial colectomy, anxiety and depression, and DM2 here due to generalized weakness, sinus pressure, body aches, and sore throat. Patient found positive for COVID. Patient is admitted due to deconditioning and IV fluids. #Covid 19/generalized weakness-with sore throat, mild headache, generalized weakness, and poor appetite as her symptoms. Afebrile, no pneumonia on CXR and no hypoxemia. She was given 1 dose of Decadron on admission but this is not needed as she is not hypoxemic. - Continue Remdesivir x 3-day course - airborne precautions - Tylenol for fever -PT/OT recommends SNF but patient declines this and feels she is getting stronger and will be able to return home #Hyponatremia- Acute on chronic. baseline 130. Sodium here on admission 128 now improved to 131 with IV fluids. Urine osmolality 280 and urine sodium 34 consistent with SIADH but probably has some acute worsening due to hypovolemia - continue sodium chloride bid --Follow BMP #History of partial colectomy and diverticulitis of colon-h/o recurrent diverticulitis, SBO, s/p colectomy in 2009. Abdomen CT with mild findings of focal colitis versus mild diverticulitis but she has no leukocytosis, no abdominal pain or tenderness on examination. She received 1 dose of Zosyn in the ED but this was not continued - No need for treatment for diverticulitis #HTN-BPs are fairly well-controlled -Continue low dose metoprolol #CAD-post CABG x3 in the past. -She is intolerant to statin therapy. No acute issues - Continue metoprolol, Plavix, and Zetia #Takotsubo cardiomyopathy: -stable Dx May 2022, EF 35-40%, -Continue metoprolol - F/u care per cardiology #Hypothyroidism: TSH normal in 03/2025 -Continue levothyroxine #DM 2-diet controlled -Continue loose NovoLog SSI #GERD: -Continue PPI #History of CVA-Dx May 2022 -Will continue to monitor, remain on daily Plavix - Has loop recorder in place DVT prophylaxis: Lovenox Disposition-continued stay on telemetry, improving, can downgrade off telemetry tomorrow if not discharged to home. Patient is declining SNF as recommended by PT Admission and Anticipated Discharge Date Admission Date: August 29, 2025 Subjective Patient overall feeling improved, with a mild headache and still with a sore throat which is improving with Chloraseptic spray. Feels stronger overall and is able to ambulate around the room. She is eating and her appetite is improved from previous. Denies cough or shortness of breath. Denies any abdominal pain. She moved her bowels once today. Telemetry with normal sinus rhythm with rates in the 60s Physical Exam Constitutional: WD/WN, vitals as above Respiratory: normal respiratory effort, lungs clear to auscultation Cardiovascular: RRR, no murmur, no edema Gastrointestinal (Abdomen): normal bowel sounds, soft, nontender, no hepatosplenomegaly Results & Data Results & Data Vital Signs (Past 12 Hours) Vital Signs Temp Pulse Pulse Resp BP Pulse Ox Pulse Ox 08/29/25 15:31 36.4 C L 62 23 146/79 H 96 08/29/25 14:35 97 08/29/25 12:00 08/29/25 11:04 36.5 C 74 24 146/82 H 97 08/29/25 10:38 08/29/25 09:42 62 08/29/25 08:01 36.4 C L 67 24 121/80 96 O2 Del Method O2 Flow Rate 08/29/25 15:31 Room Air 08/29/25 14:35 0 08/29/25 12:00 Room Air 08/29/25 11:04 Room Air 08/29/25 10:38 Room Air 08/29/25 09:42 08/29/25 08:01 Room Air Laboratory Results CBC, BMP reviewed PG Care Time/CCT Total # of Minutes Spent Total Time Spent with Patient: Total time spent is greater than 50% in coordination of care (as documented) at patient's floor/unit and/or counseling patient: Coding Level of Care Code 85595 SUB INP/OBS CARE 2/35MIN Diagnoses COVID-19 U07.1 Chronic hyponatremia E87.1 Weakness R53.1
[2025-08-29] MEDS: CYCLOBENZAPRINE HCL 5 MG TAB PO PRN (21:36)
[2025-08-30] MEDS: REMDESIVIR 100 MG in SODIUM CHLORIDE 0.9% 230 ML IV SCH (02:02)
[2025-08-30 06:33] LABS: Hematocrit (blood only) 37.1 % (37.0-47.0); Hemoglobin 12.1 g/dl (12.0-16.0); Immature Granulocytes # (auto) 0.01 K/uL (0.01-0.20); Immature Granulocytes % (auto) 0.3 %; Mean Corpuscular Hemoglobin 29.7 pg (25.0-34.0); Mean Corpuscular Volume 91.2 fL (80.0-100.0); Platelet Count 273 K/uL (130-400); RDW Standard Deviation 47.6 fL (36.4-46.3); Red Blood Count 4.07 M/uL (4.20-5.40); White Blood Count 3.55 K/ul (4.8-10.8)
[2025-08-30 06:41] LABS: Alanine Aminotransferase 10.0 U/L (7-52); Albumin Globulin Ratio 1.5 (0.9-2); Albumin Level 3.4 gm/dl (3.4-5.0); Alkaline Phosphatase 48.0 U/L (34-104); Anion Gap 6.0 (3-11); Bilirubin,Total 0.3 mg/dl (0.2-1.0); Blood Urea Nitrogen 16.0 mg/dl (6-23); Calcium 8.4 mg/dl (8.6-10.3); Carbon Dioxide 25.0 mmol/L (21-32); Chloride 102.0 mmol/L (98-107); Creatinine Clr Calc Pharmacy 52.1 ml/min; Globulin 2.3 gm/dl (2.5-4.0); Glucose 114.0 mg/dl (70-99(Fasting)); Magnesium 1.8 mg/dl (1.7-2.4); Potassium 3.8 mmol/L (3.5-5.1); Sodium 133.0 mmol/L (136-145); Total Protein 5.7 gm/dl (6.0-8.3)
--- NOTE | 2025-08-30 18:05 | Hospitalist Progress Note ---
Date of Service August 30, 2025 Assessment & Plan (1) COVID-19: (2) Chronic hyponatremia: (3) Weakness: Plan This patient is an 89 y/o female with pmh of HTN, CAD s/p CABG, Takotsubo cardiomyopathy, cryptogenic CVA with implanted loop recorder, hypothyroidism, partial colectomy, anxiety and depression, and DM2 here due to generalized weakness, sinus pressure, body aches, and sore throat. Patient found positive for COVID. Patient is admitted due to deconditioning and IV fluids. #Covid 19/generalized weakness-with sore throat, mild headache, generalized weakness, and poor appetite as her symptoms. Afebrile, no pneumonia on CXR and no hypoxemia. She was given 1 dose of Decadron on admission but this is not needed as she is not hypoxemic. Overall improving, appetite, strength improving. SOre throat persists - Continue Remdesivir x 3-day course - airborne precautions - Tylenol for fever -PT/OT recommends SNF but patient declines this and feels she is getting stronger and will be able to return home #Hyponatremia- Acute on chronic. baseline 130. Sodium here on admission 128 now improved to 133 with IV fluids. Urine osmolality 280 and urine sodium 34 consistent with SIADH but probably has some acute worsening due to hypovolemia - continue sodium chloride bid --Follow BMP #History of partial colectomy and diverticulitis of colon-h/o recurrent diverticulitis, SBO, s/p colectomy in 2009. Abdom[address] with mild findings of focal colitis versus mild diverticulitis but she has no leukocytosis, no abdominal pain or tenderness on examination. She received 1 dose of Zosyn in the ED but this was not continued - No need for treatment for diverticulitis #HTN-BPs are fairly well-controlled to mildly elevated -Continue low dose metoprolol #CAD-post CABG x3 in the past. -She is intolerant to statin therapy. No acute issues - Continue metoprolol, Plavix, and Zetia #Takotsubo cardiomyopathy: -stable Dx May 2022, EF 35-40%, -Continue metoprolol - F/u care per cardiology #Hypothyroidism: TSH normal in 03/2025 -Continue levothyroxine #DM 2-diet controlled -Continue loose NovoLog SSI #GERD: -Continue PPI #History of CVA-Dx May 2022 -Will continue to monitor, remain on daily Plavix - Has loop recorder in place DVT prophylaxis: Lovenox Disposition-continued stay but downgrade to med/surg unit. Medically stable for dc to rehab but patient is declining SNF as recommended by PT. SHe declines to go home yet as her daughter/nutritional health coach is also sick-requesting to stay until Tuesday when she has a paid nutritional health coach available to come to the house. Admission and Anticipated Discharge Date Admission Date: August 29, 2025 Subjective Pt c/o sore throat, weakness but is feeling better overall. Is OOB to chair, eating. Adamant that she not go to rehab but not ready to return home until Tuesday because her daughter/nutritional health coach is sick also with COVID. Tele with NSR, PACs, rates 60-90s Physical Exam Constitutional: WD/WN, vitals as above Respiratory: normal respiratory effort, lungs clear to auscultation Cardiovascular: RRR, no murmur, no edema Gastrointestinal (Abdomen): normal bowel sounds, soft, nontender, no hepatosplenomegaly Psychiatric: A+Ox3, euthymic affect Results & Data Results & Data Vital Signs (Past 12 Hours) Vital Signs Temp Pulse Resp BP Pulse Ox O2 Del Method 08/30/25 16:27 36.6 C 68 20 159/75 H 97 Room Air 08/30/25 10:55 36.5 C 72 22 134/77 94 Room Air 08/30/25 08:00 Room Air 08/30/25 07:45 36.3 C L 63 22 166/75 H 97 Room Air Laboratory Results CBC, BMP, LFTs, mag, Blood cxs reviewed PG Care Time/CCT Total # of Minutes Spent Total Time Spent with Patient: Total time spent is greater than 50% in coordination of care (as documented) at patient's floor/unit and/or counseling patient: Coding Level of Care Code 26274 SUB INP/OBS CARE 2/35MIN Diagnoses COVID-19 U07.1 Chronic hyponatremia E87.1 Weakness R53.1
[2025-08-31 07:33] LABS: Anion Gap 6.0 (3-11); Blood Urea Nitrogen 16.0 mg/dl (6-23); Calcium 8.3 mg/dl (8.6-10.3); Carbon Dioxide 27.0 mmol/L (21-32); Chloride 104.0 mmol/L (98-107); Creatinine Clr Calc Pharmacy 49.8 ml/min; Glucose 94.0 mg/dl (70-99(Fasting)); Potassium 3.8 mmol/L (3.5-5.1); Sodium 137.0 mmol/L (136-145)
[2025-08-31] MEDS: CYANOCOBALAMIN (B-12) 500 MCG TABLET PO SCH (09:50)
--- NOTE | 2025-08-31 16:13 | Hospitalist Progress Note ---
Date of Service August 31, 2025 Assessment & Plan (1) COVID-19: (2) Chronic hyponatremia: (3) Weakness: Plan This patient is an 89 y/o female with pmh of HTN, CAD s/p CABG, Takotsubo cardiomyopathy, cryptogenic CVA with implanted loop recorder, hypothyroidism, partial colectomy, anxiety and depression, and DM2 here due to generalized weakness, sinus pressure, body aches, and sore throat. Patient found to be positive for COVID. Patient is admitted due to deconditioning, ambulatory dysfunction, and for dehydration. #Covid 19/generalized weakness-with sore throat, mild headache, generalized weakness, and poor appetite as her symptoms. Afebrile, no pneumonia on CXR and no hypoxemia. She was given 1 dose of Decadron on admission but this is not needed as she was never hypoxemic. Overall improving, appetite, strength improving. SOre throat persists but improving. Dehydration improving - Completed remdesivir x 3-day course - Continue airborne precautions - Tylenol for fever -PT/OT recommends SNF but patient adamantly declines this and feels she is getting stronger and will be able to return home #Hyponatremia- Acute on chronic. baseline 130. Sodium here on admission 128 now improved to 137 with IV fluids and improved p.o. intake. Urine osmolality 280 and urine sodium 34 consistent with SIADH but probably has some acute worsening due to hypovolemia - continue sodium chloride bid #History of partial colectomy and diverticulitis of colon-h/o recurrent diverticulitis, SBO, s/p colectomy in 2009. Abdom[address] with mild findings of focal colitis versus mild diverticulitis but she has no leukocytosis, no abdominal pain or tenderness on examination. She received 1 dose of Zosyn in the ED but this was not continued - No need for treatment for diverticulitis with antibiotics and she is tolerating regular diet #HTN-BPs are fairly well-controlled to mildly elevated -Continue low dose metoprolol #CAD-post CABG x3 in the past. -She is intolerant to statin therapy. No acute issues - Continue metoprolol, Plavix, and Zetia #Takotsubo cardiomyopathy: -stable Dx May 2022, EF 35-40%, -Continue metoprolol - F/u care per cardiology #Hypothyroidism: TSH normal in 03/2025 -Continue levothyroxine #DM 2-diet controlled-HgbA1c well-controlled at 6.3% in 03/2025 -Continue loose NovoLog SSI-she has really required almost no insulin #GERD: -Continue PPI #History of CVA-Dx May 2022 - Continue daily Plavix - Has loop recorder in place for cryptogenic stroke DVT prophylaxis: Lovenox Disposition-continued stay on med/surg unit. Medically stable for dc to but patient is declining SNF as recommended by PT. SHe declines to go home yet as her daughter/parking lot chauffeur is also sick-requesting to stay until Tuesday when she has a paid parking lot chauffeur available to come to the house. She is hopeful to be discharged early on Sunday 09/02 Admission and Anticipated Discharge Date Admission Date: August 29, 2025 Anticipated date of discharge: 09/02/25 Subjective Patient reports she was out of bed most of the day to the chair and is eating more. Her sore throat is improving. She still feels generally weak but has been able to get up to the bathroom and back with assistance. She still is adamant about not going home until Tuesday because that is when her paid caregiver is coming to help her. Her daughter remains acutely ill with COVID at home and is not able to care for her. Physical Exam Constitutional: WD/WN, vitals as above Respiratory: normal respiratory effort, lungs clear to auscultation Cardiovascular: RRR, no murmur, no edema Gastrointestinal (Abdomen): normal bowel sounds, soft, nontender, no hepatosplenomegaly Psychiatric: A+Ox3, euthymic affect Results & Data Results & Data Vital Signs (Past 12 Hours) Vital Signs Temp Pulse Resp BP Pulse Ox O2 Del Method 08/31/25 11:22 Room Air 08/31/25 07:41 36.4 C L 60 16 160/75 H 97 Room Air Laboratory Results BMP reviewed, blood cultures no growth to date PG Care Time/CCT Total # of Minutes Spent Total Time Spent with Patient: Total time spent is greater than 50% in coordination of care (as documented) at patient's floor/unit and/or counseling patient: Coding Level of Care Code 55023 SUB INP/OBS CARE 12/15MIN Diagnoses COVID-19 U07.1 Chronic hyponatremia E87.1 Weakness R53.1
[2025-09-01 07:55] VITALS: RESP 16
[2025-09-01] MEDS: ONDANSETRON INJ 2 MG/ML 2 ML VIAL IV PRN (08:58)
[2025-09-01 15:24] VITALS: O2SAT 100
--- NOTE | 2025-09-01 15:27 | Hospitalist Progress Note ---
Date of Service September 01, 2025 Assessment & Plan (1) COVID-19: (2) Chronic hyponatremia: (3) Weakness: Plan This patient is an 89 y/o female with pmh of HTN, CAD s/p CABG, Takotsubo cardiomyopathy, cryptogenic CVA with implanted loop recorder, hypothyroidism, partial colectomy, anxiety and depression, and DM2 here due to generalized weakness, sinus pressure, body aches, and sore throat. Patient found to be positive for COVID. Patient is admitted due to deconditioning, ambulatory dysfunction, and for dehydration. #Covid 19/generalized weakness-with sore throat, mild headache, generalized weakness, and poor appetite as her symptoms. Afebrile, no pneumonia on CXR and no hypoxemia. She was given 1 dose of Decadron on admission but this is not needed as she was never hypoxemic. Overall improving, appetite, strength improving. SOre throat persists but improving. Dehydration improving - Completed remdesivir x 3-day course - Continue airborne precautions - Tylenol for fever -PT/OT recommends SNF but patient adamantly declines this and feels she is getting stronger and will be able to return home but wanted to wait until Tuesday morning #Hyponatremia- Acute on chronic. baseline 130. Sodium here on admission 128 now improved to 137 with IV fluids and improved p.o. intake. Urine osmolality 280 and urine sodium 34 consistent with SIADH but probably has some acute worsening due to hypovolemia - continue home sodium chloride bid #History of partial colectomy and diverticulitis of colon-h/o recurrent diverticulitis, SBO, s/p colectomy in 2009. Abdom[address] with mild findings of focal colitis versus mild diverticulitis but she has no leukocytosis, no abdominal pain or tenderness on examination. She received 1 dose of Zosyn in the ED but this was not continued - No need for treatment for diverticulitis with antibiotics and she is tolerating regular diet #HTN-BPs are fairly well-controlled to somewhat elevated at times -Continue low dose metoprolol - Monitor as an outpatient #CAD-post CABG x3 in the past. -She is intolerant to statin therapy. No acute issues - Continue metoprolol, Plavix, and Zetia #Takotsubo cardiomyopathy: -stable Dx May 2022, EF 35-40%, starting to have some mild lower extremity edema. Typically takes Lasix as needed at home -Continue metoprolol - F/u care per cardiology - Give Lasix 20 Mg p.o. x 1 on 09/01 for mild lower extremity edema #Hypothyroidism: TSH normal in 03/2025 -Continue levothyroxine #DM 2-diet controlled-HgbA1c well-controlled at 6.3% in 03/2025 -Continue loose NovoLog SSI-she has really required almost no insulin #GERD: -Continue PPI #History of CVA-Dx May 2022 - Continue daily Plavix - Has loop recorder in place for cryptogenic stroke DVT prophylaxis: Lovenox Disposition-continued stay on med/surg unit. She has been medically stable for discharge for 2 to 3 days, but was declining to go to SNF as recommended by PT. she did not want to go home over the weekend because her daughter/oxygen therapist is also sick with COVID-requesting to stay until Tuesday when she has a paid oxygen therapist available to come to the house. Transport has already been arranged for 10 AM on 09/02. She will just need a walker delivered to her room prior to discharge-placed order for telephonic nurse case manager to do this on Tuesday morning Admission and Anticipated Discharge Date Admission Date: August 29, 2025 Subjective Patient reports appetite is improving, she is out of bed to the bathroom with a walker and 1 assist. She is requesting a walker for home use-I have ordered it through case management. Sore throat is improving. She feels she will be ready to go home on Tuesday morning. She does report that her legs are getting a little bit swollen and she typically takes Lasix for this as needed at home Physical Exam Constitutional: WD/WN, vitals as above Respiratory: normal respiratory effort, lungs clear to auscultation Cardiovascular: Rate/Rhythm: regular rate and regular rhythm Heart Sounds: no murmur Extremities: + edema (Trace edema of legs bilaterally) Gastrointestinal (Abdomen): normal bowel sounds, soft, nontender, no hepatosplenomegaly Psychiatric: A+Ox3, euthymic affect Results & Data Results & Data Vital Signs (Past 12 Hours) Vital Signs Temp Pulse Resp BP Pulse Ox O2 Del Method 09/01/25 15:23 36.5 C 67 16 125/79 100 Room Air 09/01/25 07:54 36.6 C 65 16 171/76 H 95 Room Air 09/01/25 07:35 Room Air Laboratory Results Blood cultures remain no growth to date PG Care Time/CCT Total # of Minutes Spent Total Time Spent with Patient: Total time spent is greater than 50% in coordination of care (as documented) at patient's floor/unit and/or counseling patient: Coding Level of Care Code 31884 SUB INP/OBS CARE 12/15MIN Diagnoses COVID-19 U07.1 Chronic hyponatremia E87.1 Weakness R53.1
[2025-09-01] MEDS: FUROSEMIDE 20 MG TAB PO ONE (20:29)
[2025-09-02 07:08] VITALS: BP 157/83; PULSE 74; TEMP 97.9
--- NOTE | 2025-09-02 08:53 | Discharge Summary ---
Discharge Summary Date of Service September 02, 2025 Principal Dx & Hospital Course #1 = Principal Diagnosis (1) COVID-19: (2) Chronic hyponatremia: Plan This patient is an 89 y/o female with pmh of HTN, CAD s/p CABG, Takotsubo card iomyopathy, cryptogenic CVA with implanted loop recorder, hypothyroidism, partial colectomy, anxiety and depression, and DM2 here due to generalized weakness, sinus pressure, body aches, and sore throat. Patient found to be positive for COVID. Patient is admitted due to deconditioning, ambulatory dysfunction, and for dehydration. #Covid 19/generalized weaknes CXR negative for pneumonia. s/p 1 dose of Decadron in ED but deferred further secondary to absence of hypoxia s/p Remdesivir 3 day course PT/OT recommends SNF but patient adamantly declines this and feels she is getting stronger and will be able to return home but wanted to wait until Tuesday morning #Hyponatremia Acute on chronic. baseline 130. Sodium here on admission 128 now improved to 137 with IV fluids and improved p.o. intake. Urine osmolality 280 and urine sodium 34 consistent with SIADH but probably has some acute worsening due to hypovolemia continue home sodium chloride bid #History of partial colectomy and diverticulitis of colon h/o recurrent diverticulitis, SBO, s/p colectomy in 2009. Abdomen CT with mild findings of focal colitis versus mild diverticulitis but she has no leukocytosis, no abdominal pain or tenderness on examination. She received 1 dose of Zosyn in the ED but this was not continued- No need for treatment for diverticulitis with antibiotics and she is tolerating regular diet #HTN BPs are fairly well-controlled to somewhat elevated at times Continue low dose metoprolol -Monitor as an outpatient #CADp/Takotsubo cardiomyopathy: ost CABG x3 in the past. -She is intolerant to statin therapy. No acute issues Continue metoprolol, Plavix, and Zetia EF 35-40%, starting to have some mild lower extremity edema. Typically takes Lasix as needed at home F/u care per cardiology Give Lasix 20 Mg p.o. x 1 on 09/01 for mild lower extremity edema #Hypothyroidism: TSH normal in 03/2025 Continue levothyroxine #DM 2-diet controlled HgbA1c well-controlled at 6.3% in 03/2025 Resume outpatient regimen on dc. #GERD: Continue PPI #History of CVA Dx May 2022 Continue daily Plavix Has loop recorder in place for cryptogenic stroke discharged home 09/02. Admission HPI Per Admitting Provider 89 y/o female with pmh of HTN, CAD, Tkotsubo cardiomyopathy, loop recorder, Anxiety and depression, DM2 here due to generalized weakness, sinus pressure, body aches, and sore throat. Patient found with positive. Patient states symptoms started on Tuesday with general weakness, body aches and sore throat. Had been declining in the last couple of days. Had poor po intake as well. Did not take her morning medications this morning. Daughter had similar symptoms last week. Denied any SOB. Have sporadic cough and sinus pressure. Denied any abdominal pain or nausea. Denied any chest pain or palpitations. Denied any dysuria, frequency or urgency. She have history of urinary incontinence but had not change from baseline. Discharge Exam General: NAD, VS: BP 157/83; P74; R16; T36.6C Resp: normal respiratory effort Extremities: Moves all extremities, no edema Neuro: A&O x3 Skin: intact, no lesions noted Discharge Plan Discharge Items Patient Disposition: Home - Home Health Services Reason For Visit: COVID + Discharge Diagnosis: COVID-19 Generalized weakness with ambulatory dysfunction Hyponatremia Condition on Discharge: Good Activity: As commented below Activity Comment: With PT/OT at home Lifting: Gradually increase as tolerated Bathing: No limitations Exercise/Sports: Gradually increase as tolerated Non-emergency contact: Primary Care Provider Call non-emergency contact if: you have any medication questions and your symptoms worsen Follow-up/Referrals: Candice Gonzalez DO [Primary Care Provider] - 09/10/25 11:00 am (Follow-up within 1-2 weeks) Diet: Carb Consistent or DM2 and Heart Healthy Addtl Attending Provider Instructions: You were admitted with generalized weakness and low sodium secondary to dehydration from COVID-19 illness. You did receive some gentle IV fluids and your sodium levels improved. You were treated with a course of an antiviral medication called Remdesivir for COVID x 3 days. You had improvement and were stable for discharge to home with home PT/OT. There are no new medications that you will need to take when you get home. It was a pleasure taking care of you! If you have any questions about your care before your hospital follow-up visit with your primary care provider, please call [phone] and ask to be transferred to the [facility] Medicine office. Pending Studies at Discharge: No Stand-Alone Forms: My [facility] Medications and DC Order Prescriptions: Continued (DME) blood-glucose meter [Blood Glucose Monitoring] Kit See Rx Instructions .ROUTE .MEDSUPPLY Qty: 1 0RF Rx Instructions: As directed Testing BS daily. Dx: E11.9 (DME) Blood Glucose Test Strip See Rx Instructions .ROUTE .MEDSUPPLY Qty: 100 1RF Rx Instructions: As directed. Testing BS daily. Dx: E11.9 mecobalamin (vitamin B12) [B12 Active] 1,000 mcg tablet,chewable 1,000 mcg PO DAILY Qty: 30 0RF ezetimibe 10 mg tablet 10 mg PO DAILY Qty: 90 3RF metoprolol succinate 25 mg tablet extended release 24 hr 12.5 mg PO QAM Qty: 45 3RF clopidogrel 75 mg tablet 75 mg PO QAM Qty: 90 3RF cyclobenzaprine 5 mg tablet 5 mg PO BID PRN (Reason: muscle spasm) Qty: 30 0RF levothyroxine [Synthroid] 88 mcg tablet 88 mcg PO DAILY Qty: 90 3RF loratadine [Claritin] 10 mg tablet 10 mg PO DAILY (DME) Wheeled walker w/ seat See Rx Instructions .Route .MEDSUPPLY Qty: 1 0RF Rx Instructions: As directed (DME) lancets [[place] 1 Lancets] 26 gauge misc See Dose Instructions .ROUTE .MEDSUPPLY Qty: 50 Rx Instructions: Testing twice daily cholecalciferol (vitamin D3) 125 mcg (5,000 unit) capsule 125 mcg PO DAILY Patient Comments: pt was advised by nephro to not take anymore but refuses to stop sodium chloride 1,000 mg tablet,soluble 1,000 mg PO BID Qty: 60 6RF ascorbate calcium (vitamin C) 500 mg tablet 500 mg PO DAILY bisacodyl [Dulcolax (bisacodyl)] 5 mg tablet,delayed release (DR/EC) 5 mg PO DAILY nitroglycerin [Nitrostat] 0.4 mg tablet, sublingual 0.4 mg SL UD PRN (Reason: Chest Pain) Qty: 20 2RF Rx Instructions: 0.4 mg SL DISSOLVE 1 TABLET UNDER THE TONGUE NEEDED FOR CHEST PAIN PRN; Prilosec 10 mg susp,delayed release for recon 10 mg PO Q2D furosemide [Lasix] 20 mg tablet 20 mg PO DAILY PRN (Reason: FLUID RENTION) Discharge Orders: Discharge Order (Routine); Ordered 09/02/25 Ordered By: Kelley Garcia Admission Data Admit Date/Time: 08/29/25 15:57 Attending Provider: Gomez Betts Admit Provider: Melva Castano Primary Care Provider: Candice Gonzalez Other Providers: Andrea Pak Other Interventions: Discharge Summary Assessment (RN) Last Done: 09/02/25 09:45 Hospital Stay Data Consultations 08/28/25 19:16 ED Decision to Admit Stat Diagnostic Imagining Performed 08/28/25 16:14 CT abd pelvis IV con only Stat Pending Results Patient Have Any Pending Studies at Discharge: No Discharge Instructions Given to Patient (Per Discharging Provider) You were admitted with generalized weakness and low sodium secondary to dehydration from COVID-19 illness. You did receive some gentle IV fluids and your sodium levels improved. You were treated with a course of an antiviral medication called Remdesivir for COVID x 3 days. You had improvement and were stable for discharge to home with home PT/OT. There are no new medications that you will need to take when you get home. It was a pleasure taking care of you! If you have any questions about your care before your hospital follow-up visit with your primary care provider, please call [phone] and ask to be tamez sferred to the [facility] Medicine office. Supervising Physician Co-Signing Physician Notes The patient was not seen by me. The chart was reviewed. Case discussed with CONOR Mike. Agree with assessment and plan Total Time Total Time Spent Total Time Spent (In Minutes): 45 Total Time Includes: Examination of the Patient, Discharge Planning and Medication Reconciliation Coding Level of Care Code 48626 INP/OBS DISCH >30 MIN Diagnoses COVID-19 U07.1 Chronic hyponatremia E87.1
== END 2025-09-02 10:30 | disposition home health service (06) ==
LOC: SUATTDRO → 2S 15:56 → ED 15:56 → SUATTDRO 20:21 → 2S 22:53 → SUATTDRO 08-29 15:57 → 2W 08-31 03:35 → 3E 08-31 18:12